=== PATIENT | male | born 1945 | race Caucasian/White ===

== ENCOUNTER → 2017-01-30 | Outpatient (REF) | payer MEDICARE, OTHER | LOC: M LAB REF 14:27 | PROVIDERS: ATTEND Internal Medicine | DX: Z01.89 Encounter for other specified special examinations (principal) ==

== ENCOUNTER → 2017-12-14 | Outpatient (REF) | payer MEDICARE, OTHER | LOC: M LAB REF 17:31 | DX: Z15.01 Genetic susceptibility to malignant neoplasm of breast (principal); Z80.41 Family history of malignant neoplasm of ovary ==

== ENCOUNTER → 2018-04-23 | Outpatient (CLI) | payer MEDICARE, OTHER ==
[~2018-04-23] MED LIST: ANOR1AER INH; BENZ200C70 PO; BISO10TA6 PO; MUCI1TAB16 PO; MUCI600T37 PO; VENTAER IN
--- NOTE | 2018-04-23 14:57 | REP ---
CT CHEST WITHOUT CONTRAST: HISTORY: Dyspnea. Rule out pleural effusion. Decreased breath sounds on the right. Chronic obstructive pulmonary disease. No comparison chest x-ray or chest CT. CT FINDINGS: Digital preliminary refractory technician radiograph demonstrates evidence of a large right pleural effusion. The left lung is essentially clear. There is fullness in the right perihilar region. Axial CT images confirm the presence of a large right pleural effusion filling of the lower half of the volume of the right hemithorax. There is compressive atelectasis in the right lower lobe and to some degree, there is atelectatic change with air bronchograms in the right middle and upper lobe. There are scattered pretracheal and right paratracheal lymph nodes which are fairly small. There is evidence of a larger subcarinal lymph node measuring up to 2.6 cm in short axis dimension x 3.8 cm craniocaudal. No definite mass is seen in the absence of intravenous contrast. Left coronary artery vascular calcification is seen. The heart appears mildly enlarged. The left lung is free of infiltrate. There is a 5 mm perivascular nodule in the left lower lobe on page 60 of 121 in series 201 of today's study. No other left-sided pulmonary nodule is appreciated. No adrenal lesion is seen. Visualized upper abdominal structures are unremarkable. There are advanced degenerative osteoarthritic changes in the shoulders. There are periarticular soft tissue ossicles about both shoulders which may be loose bodies in addition to exuberant osteophytes. No bony destructive lesion is seen. IMPRESSION: Large right pleural effusion with atelectasis in the right lung. There is subcarinal lymphadenopathy. Question bronchogenic malignancy. 5 mm perivascular nodule left lower lobe. Cardiomegaly with vascular calcification. Advanced arthropathy in the shoulders bilaterally. Electronically Signed by Angelito Mota MD 04/23/2018 06:06 P
== END ==
LOC: M RAD 11:58
PROVIDERS: ATTEND Internal Medicine Pulmonary Disease
DX: J90 Pleural effusion, not elsewhere classified (principal); J98.11 Atelectasis; J44.9 Chronic obstructive pulmonary disease, unspecified; R06.00 Dyspnea, unspecified

== ENCOUNTER → 2018-04-25 | Day surgery (SDC) | payer MEDICARE, OTHER ==
[~2018-04-25] VITALS: Ht 177.8 cm; Wt 109.8 kg
[~2018-04-25] MED LIST changes: +ALB2.5NEB NEB; +ALIG4CAP PO; +ASPI81TA85 PO; +FISH100042 PO; +FOLI1TAB11 PO; +LIDOCAINE 1% MDV 20ML VIAL XX ONE; +NORCOTAB PO; +VITMTA PO; +XARE20TA PO
[2018-04-25 13:19] LABS: BASO % 0.2 % (0.0-1.0); EOS # 0.1 10^3/uL (0.0-0.50); EOS % 1.8 % (0.0-3.0); HEMATOCRIT 45.9 % (42.0-52.0); HEMOGLOBIN 15.8 g/dl (13.5-17.5); LYMPH # 1.2 10^3/uL (1.5-4.5); LYMPH % 20.5 % (24.0-44.0); MEAN CORPUSCULAR HEMOGLOBIN 30.3 pg (27.0-33.0); MEAN CORPUSCULAR HGB CONC 34.4 g/dl (32.0-36.5); MEAN CORPUSCULAR VOLUME 87.9 fl (80.0-96.0); MONO # 0.5 10^3/uL (0.0-0.8); MONO % 8.8 % (0.0-5.0); NEUTROPHILS # 3.9 10^3/uL (1.8-7.7); NEUTROPHILS % 68.3 % (36.0-66.0); PLATELET COUNT, AUTOMATED 232 10^3/uL (150-450); RED BLOOD COUNT 5.22 10^6/uL (4.30-6.10); WHITE BLOOD COUNT 5.7 10^3/uL (4.0-10.0)
[2018-04-25 13:30] LABS: INR 1.21; PROTHROMBIN TIME 15.5 SECONDS (12.1-14.4)
[2018-04-25 13:48] LABS: ALBUMIN 3.5 GM/DL (3.2-5.2); ALT/SGPT 39 U/L (12-78); BILIRUBIN,TOTAL 0.6 MG/DL (0.2-1.0); BLOOD UREA NITROGEN 20 MG/DL (7-18); CALCIUM LEVEL 9.1 MG/DL (8.8-10.2); CARBON DIOXIDE LEVEL 29 MEQ/L (21-32); CHLORIDE LEVEL 102 MEQ/L (98-107); GLOMERULAR FILTRATION RATE > 60.0 (>42); GLUCOSE, FASTING 96 MG/DL (70-100); LDH LACTATE DEHYDROGENASE 220 U/L (87-241); SODIUM LEVEL 137 MEQ/L (136-145); TOTAL PROTEIN 7.4 GM/DL (6.4-8.2)
[2018-04-25 14:47] LABS: SOURCE, BODY FLUID pH PLEURAL
[2018-04-25 14:51] VITALS: BP 127/88
--- NOTE | 2018-04-25 14:59 | RO ---
DATE OF PROCEDURE: 04/25/2018 PREOPERATIVE DIAGNOSIS: Right pleural effusion. POSTOPERATIVE DIAGNOSIS: Right pleural effusion. FINDINGS: Very large right pleural effusion under ultrasound. PROCEDURE: Right ultrasound-guided thoracentesis. PROCEDURALIST: Kevin Dickerson DO PROGRAM ANALYST: None. ANESTHESIA: 1% lidocaine total of 10 mL. SPECIMENS OBTAINED: Pleural fluid for glucose, LDH, pH, total protein, amylase, cytology, cell count, triglycerides, cholesterol, albumin, aerobic and anaerobic culture, Gram stain, AFB smear and culture and fungal smear and culture. ESTIMATED BLOOD LOSS: There was estimated blood loss of 2 mL, none replaced. No drains. No observed complications. DESCRIPTION OF PROCEDURE: After informed consent was reviewed with the patient in the preoperative area, he was brought back to an OPP suite. He was placed in a sitting position and the right pleural effusion was identified under ultrasound. There was a large amount of pleural effusion and pleural effusion was marked. A time out was performed with two patient identifiers, confirmed right site and procedure. Chlorhexidine was used to sterilize site along with placing a barrier over the site. 1% lidocaine was introduced subcutaneously down to level of pleural with return of yellow fluid. The needle was then removed and a chastity in the skin was made. The Arrow trocar was then advanced into the pleural space with return of yellow fluid. The catheter was advanced into the pleural space and the trocar was removed. A total of 2600 mL of clear to cloudy yellow fluid was removed. The procedure was stopped due to coughing and minimal amount of chest discomfort along with reaching the limit of fluid removal for the first time. The catheter was then removed under exhalation. Bandage was placed over the site. The patient in recovery doing well. Will follow-up in my office for the results of the thoracentesis along with a chest x-ray.
[2018-04-25 15:15] LABS: SOURCE, BODY FLUID ALBUMIN PLEURAL; SOURCE, BODY FLUID TOT PROTEIN PLEURAL; TOTAL PROTEIN, BODY FLUID 4.2 G/DL (NOT ESTABLISHED)
[2018-04-25 15:16] LABS: APPEARANCE, BODY FLUID HAZY (CLEAR); PLEURAL FL COLOR YELLOW (COLORLESS); SOURCE, BODY FLUID PLEURAL
[2018-04-25 15:24] LABS: AMYLASE, BODY FLUID 83 U/L (NOT ESTABLISHED); CHOLESTEROL, BODY FLUID 61 MG/DL (NOT ESTABLISHED); LDH, BODY FLUID 1651 U/L (NOT ESTABLISHED); SOURCE, BODY FLUID AMYLASE PLEURAL; SOURCE, BODY FLUID CHOL PLEURAL; SOURCE, BODY FLUID GLUCOSE PLEURAL; SOURCE, BODY FLUID LDH PLEURAL; SOURCE, BODY FLUID TRIG PLEURAL; TRIGLYCERIDE, BODY FLUID 10 MG/DL (NOT ESTABLISHED)
== END | disposition home or self-care (01) ==
LOC: M OPP 12:28
PROVIDERS: ATTEND Internal Medicine Pulmonary Disease
DX: C78.01 Secondary malignant neoplasm of right lung (principal); J91.0 Malignant pleural effusion; R06.00 Dyspnea, unspecified; R05 Cough; I48.91 Unspecified atrial fibrillation; J44.9 Chronic obstructive pulmonary disease, unspecified

== ENCOUNTER → 2018-04-30 | Outpatient (CLI) | payer MEDICARE, OTHER ==
[~2018-04-30] MED LIST changes: -ALB2.5NEB NEB; -ALIG4CAP PO; -ASPI81TA85 PO; -FISH100042 PO; -FOLI1TAB11 PO; -LIDOCAINE 1% MDV 20ML VIAL XX ONE; -NORCOTAB PO; -VITMTA PO; -XARE20TA PO
--- NOTE | 2018-04-30 13:51 | REP ---
Chest two views HISTORY: Pleural effusion Comparison: None Parenchymal density is present in the right lower lobe consistent with atelectasis or infiltrate. A small right pleural effusion is present. The left lung is clear. The heart is normal in size. The pulmonary vasculature is normal in appearance. The bony structure is intact. IMPRESSION: 1. Right lower lobe atelectasis or infiltrate. 2. Small right pleural effusion. Electronically Signed by Felice Larson MD 04/30/2018 01:42 P
== END ==
LOC: M SMT 13:22
PROVIDERS: ATTEND Internal Medicine Pulmonary Disease
DX: R91.8 Other nonspecific abnormal finding of lung field (principal); J90 Pleural effusion, not elsewhere classified

== ENCOUNTER 2018-05-07 08:49 | Day surgery (SDC) | payer MEDICARE, OTHER ==
[~2018-05-07] VITALS: Ht 175.3 cm; Wt 109.8 kg
[~2018-05-07 08:49] MED LIST changes: -ALB2.5NEB NEB; -ALIG4CAP PO; -ASPI81TA85 PO; -FISH100042 PO; -FOLI1TAB11 PO; -VITMTA PO; -XARE20TA PO
[2018-05-07] MEDS ORDERED: LIDOCAINE 1% MDV 20ML VIAL XX ONE (09:00)
--- NOTE | 2018-05-07 10:35 | RO ---
DATE OF PROCEDURE: 05/07/2018 PREOPERATIVE DIAGNOSIS: Right pleural effusion. POSTOPERATIVE DIAGNOSIS: Right pleural effusion. FINDINGS: A large right pleural effusion under ultrasound. PROCEDURE: Right therapeutic thoracentesis. SURGEON: Dr. Dickerson MANAGER DISCOVERY: None. ANESTHESIA: 1% lidocaine. SPECIMENS OBTAINED: 2.77 liters of yellow fluid, not sent as diagnosis has already been made and the patient not having any fever. ESTIMATED BLOOD LOSS: None. DRAINS: None remaining. COMPLICATIONS: No observed complications. DESCRIPTION OF PROCEDURE: After the patient consented in the preoperative area he was brought back to OPP #3. A time-out was performed with two patient identifiers identifying correct site, correct procedure. The largest fluid collection was identified on the right and the skin was marked. Chlorhexidine was used to prep the area along with sterile barrier precaution. 1% lidocaine was then injected down to the level of pleural with return of yellow fluid. A chastity in the skin was made. The Arrow trocar was then advanced into the pleural space in the trocar was removed and the catheter was advanced. A total of 2.7 liters of yellow fluid was removed. The procedure was stopped due to decreased return of fluids. No observed complications. Postprocedure chest CT is pending.
[2018-05-07 10:45] VITALS: BP 151/97
[2018-05-08] MEDS ORDERED: ASPI81TA85 PO (14:36)
[2018-05-08] MEDS ORDERED: FISH100042 PO (14:36)
[2018-05-08] MEDS ORDERED: ALIG4CAP PO (14:36)
[2018-05-08] MEDS ORDERED: XARE20TA PO (14:36)
[2018-05-08] MEDS ORDERED: VITMTA PO (14:36)
[2018-05-09] MEDS ORDERED: FOLI1TAB11 PO (11:38)
[2018-05-16] MEDS ORDERED: PROC10TA4 PO (16:30)
[2018-05-16] MEDS ORDERED: ONDA8TAB8 PO (16:30)
[2018-05-27] MEDS ORDERED: TUSS1SUS2 PO (14:09)
== END 2018-05-07 10:50 | disposition home or self-care (01) ==
LOC: M OPP 08:49
PROVIDERS: ATTEND Internal Medicine Pulmonary Disease
DX: J44.9 Chronic obstructive pulmonary disease, unspecified (principal); J91.0 Malignant pleural effusion; R05 Cough; Z79.82 Long term (current) use of aspirin; Z79.899 Other long term (current) drug therapy; Z87.891 Personal history of nicotine dependence

== ENCOUNTER → 2018-05-07 | Outpatient (CLI) | payer MEDICARE, OTHER ==
[~2018-05-07] MED LIST changes: +ALB2.5NEB NEB; +ALIG4CAP PO; +ASPI81TA85 PO; +FISH100042 PO; +FOLI1TAB11 PO; +VITMTA PO; +XARE20TA PO
--- NOTE | 2018-05-07 11:30 | REP ---
Clinical: Follow up pleural effusion. Comparison: 04/23/2018. Technique: Axial noncontrast images from the thoracic inlet to the upper abdomen with coronal and sagittal re-formations. Findings: Small residual right hydropneumothorax is appreciated. There is an area of mass-like consolidation involving the right hilar/suprahilar region as well as a 4.5 cm defined mass in the right middle lobe. Smaller scattered nodular densities measuring up to approximately 10 mm are also identified within the aerated right lung and there is associated hilar and subcarinal adenopathy. These findings are most compatible with malignancy. 6 mm noncalcified nodules also identified inseparable from the left major fissure (image 55). Further evaluation is somewhat limited due to the lack of intravenous contrast and associated a above-mentioned right hydropneumothorax. Stable cardiomegaly and coronary artery atherosclerotic changes again noted. No pericardial effusion. Thoracic aorta appears normal. Musculoskeletal structures demonstrate degenerative changes without focal osseous abnormality. Upper abdomen demonstrates normal bilateral adrenal glands. Impression: 1. Small residual right hydropneumothorax. 2. Associated right hilar mass / consolidation, and 4.5 cm right middle lobe mass with adenopathy and small bilateral noncalcified satellite lesions up to 10 mm concerning for primary malignancy and metastatic disease. Electronically Signed by Mac Perkins MD 05/07/2018 11:22 A
== END ==
LOC: M RAD 10:54
PROVIDERS: ATTEND Internal Medicine Pulmonary Disease
DX: J94.8 Other specified pleural conditions (principal); R91.8 Other nonspecific abnormal finding of lung field; J91.0 Malignant pleural effusion

== ENCOUNTER → 2018-05-10 | Outpatient (CLI) | payer MEDICARE, OTHER ==
[~2018-05-10] MED LIST changes: +ALB2.5NEB NEB; +ALIG4CAP PO; +ASPI81TA85 PO; +FISH100042 PO; +FOLI1TAB11 PO; +GASTROGRAFIN SOLUTION 30ML (Q9963) As Ordered ONE; +NORCOTAB PO; +VITMTA PO; +XARE20TA PO
--- NOTE | 2018-05-10 13:42 | REP ---
Clinical: Metastatic adenocarcinoma of the lung. Technique: Axial noncontrast images from the lung bases to the pubic symphysis with coronal and sagittal re-formations. Comparison: 12/14/2009. Findings: Large right pleural effusion is appreciated along with right anterior pneumothorax. Right lung mass cannot be excluded. Liver, spleen, pancreas, gallbladder, bilateral adrenal glands and kidneys appear relatively normal for noncontrast evaluation. The enteric system is without obstruction or acute inflammatory process. Scattered colonic diverticula noted without acute diverticulitis. Evidence for prior partial sigmoid resection and anastomoses within the pelvis appears intact. There is broad-based eventration/hernia of the of the anterior abdominal rectus sheath containing bowel without obstruction. The pelvis is incompletely evaluated due to significant beam-hardening artifact from bilateral hip replacements. Evidence for prior bilateral inguinal hernia repair noted. No obvious ascites. No free air. No obvious adenopathy. Abdominal aorta without aneurysm. Osseous structures demonstrate degenerative changes without focal abnormality appreciated. Impression: 1. Large right pleural effusion and right pneumothorax. 2. Broad-based hernia/eventration of the anterior abdominal wall containing nonobstructed bowel. 3. Significantly limited evaluation of the pelvis including bladder and prostate gland due to beam-hardening artifact. 4. Advanced degenerative changes to the skeletal structures without obvious focal abnormality. 5. No obvious ascites, adenopathy, or focal inflammatory stranding noted. Electronically Signed by Mac Perkins MD 05/10/2018 01:33 P
== END ==
LOC: M RAD 11:21
PROVIDERS: ATTEND Nurse Practitioner Family
DX: C78.01 Secondary malignant neoplasm of right lung (principal); J90 Pleural effusion, not elsewhere classified; J93.9 Pneumothorax, unspecified

== ENCOUNTER 2018-05-13 15:08 | Inpatient (IN) | payer MEDICARE, OTHER ==
[2018-05-13] VITALS (30 sets, daily range): BP systolic 95–153; BP diastolic 55–98
[~2018-05-13 15:08] MED LIST changes: -ALB2.5NEB NEB; -NORCOTAB PO; +PANTOPRAZOLE 40MG INJ (PROTONIX) (C9113) IV SCH
[2018-05-13] MEDS ORDERED: MORPHINE 4 MG/ML 1ML VIAL/SYRINGE (J2270) IV PRN (15:15)
[2018-05-13] MEDS: IPRATROPIUM 0.5MG/ALBUTEROL 2.5MG INH SOL UD 3ML (DUONEB)(J7620) NEB SCH ×2 (16:00→19:42)
[2018-05-13] MEDS ORDERED: MIDAZOLAM INJ 2 MG/2 ML VIAL (J2250) As Ordered ONE (16:42)
[2018-05-13] MEDS ORDERED: FLUMAZENIL 0.5 MG/5 ML VIAL As Ordered ONE (16:42)
[2018-05-13] MEDS ORDERED: MIDAZOLAM INJ 2 MG/2 ML VIAL (J2250) IV ONE (16:45)
[2018-05-13] MEDS ORDERED: fentaNYL 100 MCG/2 ML INJECTION (J3010) IV ONE (16:45)
[2018-05-13] MEDS ORDERED: LIDOCAINE 1% MDV 20ML VIAL As Ordered ONE (16:50)
[2018-05-13] MEDS ORDERED: FOLI1TAB11 PO (17:12)
[2018-05-13] MEDS ORDERED: ALB2.5NEB NEB (17:12)
[2018-05-13 17:13] LABS: HEMATOCRIT 45.7 % (42.0-52.0); HEMOGLOBIN 15.6 g/dl (13.5-17.5); INR 1.35; MEAN CORPUSCULAR HEMOGLOBIN 29.8 pg (27.0-33.0); MEAN CORPUSCULAR HGB CONC 34.1 g/dl (32.0-36.5); MEAN CORPUSCULAR VOLUME 87.2 fl (80.0-96.0); PLATELET COUNT, AUTOMATED 302 10^3/uL (150-450); PROTHROMBIN TIME 16.9 SECONDS (12.1-14.4); RED BLOOD COUNT 5.24 10^6/uL (4.30-6.10); WHITE BLOOD COUNT 6.7 10^3/uL (4.0-10.0)
--- NOTE | 2018-05-13 17:23 | HPE ---
DATE OF ADMISSION: 05/13/2018 Mr. Forrest is a very pleasant 72-year-old male who had been seen by oncology. There is a plan to start chemotherapy and Keytruda. However, there is concern about fluid accumulation. We therefore called the patient to discuss arranging a PleurX catheter. Therefore, he was called and at that time he was having increased shortness of breath. He did have an abdominal CT as his PET scan was denied despite his diagnosis of primary lung malignancy. On abdominal imaging, there showed significant reaccumulation of the pleural effusion. He was therefore seen by Dr. Case in the office today and is going to be admitted for PleurX catheter placement. There was some concern about whether or not he was more hypoxic than usual. It turns out after switching his oximetry probe to a better reading finger, his oxygen saturation was 96% at rest. The patient has coughing which is usually worse with fluid reaccumulation. After his last thoracentesis, he said that is the best he has felt in a long time. He has had no difficulty swallowing. No fevers. No sinus congestion. No sore throat. He has had no dizziness or change in vision but has a progressive increase in shortness of breath. No significant weight loss. No medication changes. PAST MEDICAL HISTORY: 1. Malignant pleural effusion, adenocarcinoma thought to be lung primary with positive epidermal growth factor receptor (EGFR) and high PD-L1 expression at 70%, awaiting chemotherapy. 2. Hypertension. 3. Atrial fibrillation, atrial flutter, on chronic anticoagulation with some recent intermittent holding of the Xarelto for procedures. 3. Probable underlying chronic obstructive pulmonary disease (COPD), although spirometry has not been obtained as of yet that quantifies this. 4. History of hip and knee replacements. 5. 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 CURRENT MEDICATIONS: - albuterol nebulizer - bisoprolol - Tessalon Perles - Ventolin with spacer - Anoro - Xarelto - aspirin 81 mg - folic acid 1 mg ALLERGIES: No known drug allergies. SOCIAL HISTORY: The patient is an ex-smoker, smoked 60 years of about 8-6 cigarettes a day, approximately a 30-pack history of smoking, quit in 2001. No smokeless tobacco use. No alcohol use. No illicit drug use. He has no birds in his home and lives with his . No asbestos exposures. No hobbies involving dust or chemicals. No prior exposures. He was born in [place] but moved to the area in 1966. No recent travel. 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 FAMILY HISTORY: Mother had lung cancer, at age 53. Father has a history of an aneurysm. REVIEW OF SYSTEMS CONSTITUTIONAL: No fever, chills, night sweats, or weight loss. His appetite is still fairly good. HEENT: No impairment in vision, hearing, smell or taste. CARDIOVASCULAR: Some minimal swelling of his ankles occurring over the past year. No increase in his usual level of swelling. No calf pain. No shortness of breath. No orthopnea. PULMONARY: No history of tuberculosis exposures. No pleurisy. He does have chest pain with coughing. Otherwise as mentioned in the history of present illness (HPI). GASTROINTESTINAL (GI): No reflux, nausea, vomiting, constipation, diarrhea, hepatitis, pancreatitis or history of gallbladder disease. GENITOURINARY (): No increased frequency, urinary dysuria or increased urgency. No history of nephrolithiasis. ENDOCRINE: No history of diabetes or thyroid disease. HEMATOLOGIC: No easy bruising, easy bleeding, or requiring blood transfusion. NEUROLOGIC: No history of stroke, seizures, or significant head trauma. DERMATOLOGIC: There is no history of psoriasis or pruritic skin lesions. PSYCHIATRIC: No major depression or suicidal ideation. ALLERGY/IMMUNOLOGY: No known environmental allergies or immunodeficiency. MUSCULOSKELETAL SYSTEM: No joint pain or joint swelling. No muscle aches. No cramping. He does not require the use of a cane or walker with ambulation. SLEEP: No morning headaches, daytime fatigues, or witnessed apneas. states, however, that he does snore at times. PHYSICAL EXAMINATION: Temperature is 97.9, pulse is 83 and irregular rate and rhythm, oxygen saturations 95% on room air, blood pressure is 133/97, respiratory rate is 24. Awake, alert and oriented. Affect and mood are appropriate. Nutrition and hygiene are good. Oral and nasal mucosa pink and most without lesion. Oropharynx without erythema or exudate. Mallampati 4. Dentition in good repair. NECK: No stridor, tracheal deviation, or mass. Jugular veins not distended. Carotid upstroke is brisk without bruit but variable. Thyroid is normal in size and contour, moves normally with deglutition. LYMPHATICS: No cervical, supraclavicular or axillary adenopathy. CARDIAC: Irregularly irregular without audible murmur, rub or gallop. Point of maximal impulse (PMI) is displaced laterally to the anterior and axillary line. No discernible elevation in jugular venous pressure (JVP). PULMONARY: Breath sounds are decreased at the right base. There is dullness to percussion, one half of the right base. Expiratory phase is normal. There is increased tactile fremitus on the right. No rhonchi or wheezes. The patient does have frequent coughing throughout the examination. ABDOMEN: Soft, nontender, nondistended. Well-healed surgical incisions. Some protuberance, some rectus diastasis, normoactive bowel sounds. No discernible hepatosplenomegaly. EXTREMITIES: Minimal lower extremity edema. Radial pulses are present but irregular. SKIN: Pale, cool and dry. No rash, jaundice or bruising. MUSCULOSKELETAL: Tone is fairly normal. Gait and station are normal with no evidence of unilateral weakness. DIAGNOSTIC STUDIES: Laboratory evaluation and imaging is pending. Imaging reviewed from 03/09/[address] shows persistent air in the pleural space from my suspicion of a trapped lung. There is also now moderate reaccumulation of the pleural fluid, fairly large right middle lobe mass. There is an abdominal wall hernia without evidence of incarceration. IMPRESSION:Mr. Forrest is a 72-year-old male with increased dyspnea and recurrent pleural effusion. 1. Dyspnea, abnormal xray, recurrent pleural effusion. Initially concern for worsening hypoxia, however, this does not appear to be the case. We will admit him to the intensive care unit (ICU), place a PleurX catheter, thoracic oncology has been consulted, and sepsis is being given pre-procedure. The patient consented at bedside by thoracic surgery. At this point in time, we will hold Xarelto until after the procedure. We will restart tomorrow. 2. Probable underlying chronic obstructive pulmonary disease (COPD). Nebulizers, inhaled therapy will be continued. 3. Atrial fibrillation. We will continue bisoprolol for rate control and again return on Xarelto when surgically able. MTDD
[2018-05-13 17:36] LABS: ALBUMIN 3.3 GM/DL (3.2-5.2); ALT/SGPT 35 U/L (12-78); BILIRUBIN,TOTAL 0.7 MG/DL (0.2-1.0); BLOOD UREA NITROGEN 16 MG/DL (7-18); CALCIUM LEVEL 9.1 MG/DL (8.8-10.2); CARBON DIOXIDE LEVEL 29 MEQ/L (21-32); CHLORIDE LEVEL 102 MEQ/L (98-107); CHOLESTEROL LEVEL 177 MG/DL (< 200); CPK CREATINE PHOSPHOKINASE 119 U/L (39-308); CREATININE FOR GFR 0.91 MG/DL (0.70-1.30); GLOMERULAR FILTRATION RATE > 60.0 (>42); GLUCOSE, FASTING 90 MG/DL (70-100); LDH LACTATE DEHYDROGENASE 203 U/L (87-241); PHOSPHORUS LEVEL 3.6 MG/DL (2.5-4.9); POTASSIUM SERUM 4.7 MEQ/L (3.5-5.1); SODIUM LEVEL 138 MEQ/L (136-145); TRIGLYCERIDES LEVEL 81 MG/DL (<150)
[2018-05-13] MEDS ORDERED: NORCO, ANEXSIA 5/325MG TABLET (HYDROcodone/ACETAMINOPHEN) PO PRN (17:45)
[2018-05-13] MEDS ORDERED: RIVAROXABAN 20 MG TAB (XARELTO) PO SCH (18:00)
[2018-05-13 18:20] LABS: PH BODY FLUID 7.501 UNITS (NOT ESTABLISHED); SOURCE, BODY FLUID pH PLEURAL
[2018-05-13 18:23] LABS: APPEARANCE, BODY FLUID CLOUDY (CLEAR); PLEURAL FL COLOR ORANGE (COLORLESS); SOURCE, BODY FLUID PLEURAL
[2018-05-13 18:29] LABS: ABG BASE EXCESS 1.5 (-2.0-2.0); ABG HCO3 26.3 MEQ/L (22.0-26.0); ABG O2 SATURATION 97.3 % (95.0-99.0); ABG PARTIAL PRESSURE CO2 42.2 mmHg (35.0-45.0); ABG PARTIAL PRESSURE O2 92.9 mmHg (75.0-100.0); ABG STANDARD HCO3 25.8 MEQ/L (22.0-26.0); ABG TOTAL CO2 27.6 MEQ/L (23.0-31.0); ABG pH (ARTERIAL) 7.413 UNITS (7.350-7.450)
[2018-05-13] MEDS: TIOTROPIUM INHALER/CAPSULE (SPIRIVA) INH SCH (18:29)
[2018-05-13 18:53] LABS: AMYLASE, BODY FLUID 61 U/L (NOT ESTABLISHED); CHOLESTEROL, BODY FLUID 52 MG/DL (NOT ESTABLISHED); LDH, BODY FLUID 348 U/L (NOT ESTABLISHED); SOURCE, BODY FLUID ALBUMIN PLEURAL; SOURCE, BODY FLUID AMYLASE PLEURAL; SOURCE, BODY FLUID CHOL PLEURAL; SOURCE, BODY FLUID GLUCOSE PLEURAL; SOURCE, BODY FLUID LDH PLEURAL; SOURCE, BODY FLUID TOT PROTEIN PLEURAL; SOURCE, BODY FLUID TRIG PLEURAL; TOTAL PROTEIN, BODY FLUID 3.2 G/DL (NOT ESTABLISHED); TRIGLYCERIDE, BODY FLUID 16 MG/DL (NOT ESTABLISHED)
[2018-05-13] MEDS: FOLIC ACID 1 MG TAB PO SCH (19:35)
[2018-05-13] MEDS: SYMBICORT 160/4.5MCG INHALER 6GM INH SCH (19:47)
--- NOTE | 2018-05-13 20:29 | REP ---
PORTABLE CHEST: AP portable view of the chest is performed. Right chest tube has been placed inferiorly. There is no pneumothorax. There is significant decrease in the large right effusion. There is patchy parenchymal opacity in the right lung base. There is cardiomegaly. There are degenerative changes of the spine. Electronically Signed by Bishop Gordon MD 05/15/2018 01:26 P
[2018-05-13] MEDS ORDERED: CHLORHEXIDINE GLUCONATE 0.12 % 15ML UDC (PERIDEX ORAL RINSE) MT SCH (21:00)
[2018-05-13] MEDS ORDERED: ENOXAPARIN 40 MG/0.4 ML SYRINGE (J1650) SC SCH (21:00)
[2018-05-13] MEDS ORDERED: BENZONATATE 100 MG CAP PO SCH (22:00)
[2018-05-14] VITALS: BP 129/72
[2018-05-14 02:00] VITALS: BP 156/89
[2018-05-14 04:00] VITALS: BP 124/67
[2018-05-14] MEDS: BENZONATATE 100 MG CAP PO PRN ×2 (04:58→13:08)
[2018-05-14 05:10] LABS: HEMATOCRIT 42.2 % (42.0-52.0); HEMOGLOBIN 14.4 g/dl (13.5-17.5); MEAN CORPUSCULAR HEMOGLOBIN 30.2 pg (27.0-33.0); MEAN CORPUSCULAR HGB CONC 34.1 g/dl (32.0-36.5); MEAN CORPUSCULAR VOLUME 88.5 fl (80.0-96.0); PLATELET COUNT, AUTOMATED 254 10^3/uL (150-450); RED BLOOD COUNT 4.77 10^6/uL (4.30-6.10); WHITE BLOOD COUNT 7.3 10^3/uL (4.0-10.0)
[2018-05-14 05:36] LABS: ALBUMIN 2.5 GM/DL (3.2-5.2); BLOOD UREA NITROGEN 14 MG/DL (7-18); CALCIUM LEVEL 8.3 MG/DL (8.8-10.2); CARBON DIOXIDE LEVEL 31 MEQ/L (21-32); CHLORIDE LEVEL 102 MEQ/L (98-107); CREATININE FOR GFR 1.08 MG/DL (0.70-1.30); GLOMERULAR FILTRATION RATE > 60.0 (>42); GLUCOSE, FASTING 108 MG/DL (70-100); PHOSPHORUS LEVEL 3.4 MG/DL (2.5-4.9); POTASSIUM SERUM 4.4 MEQ/L (3.5-5.1); SODIUM LEVEL 138 MEQ/L (136-145)
[2018-05-14 05:46] LABS: ABG BASE EXCESS 3.4 (-2.0-2.0); ABG HCO3 27.3 MEQ/L (22.0-26.0); ABG O2 SATURATION 93.9 % (95.0-99.0); ABG PARTIAL PRESSURE CO2 39.2 mmHg (35.0-45.0); ABG STANDARD HCO3 27.4 MEQ/L (22.0-26.0); ABG TOTAL CO2 28.5 MEQ/L (23.0-31.0); ABG pH (ARTERIAL) 7.461 UNITS (7.350-7.450)
[2018-05-14] MEDS: TIOTROPIUM INHALER/CAPSULE (SPIRIVA) INH SCH (07:38)
[2018-05-14] MEDS: SYMBICORT 160/4.5MCG INHALER 6GM INH SCH (07:39)
[2018-05-14] MEDS: IPRATROPIUM 0.5MG/ALBUTEROL 2.5MG INH SOL UD 3ML (DUONEB)(J7620) NEB SCH ×2 (07:39→10:09)
[2018-05-14 07:55] VITALS: BP 134/76
--- NOTE | 2018-05-14 08:13 | REP ---
Chest x-ray: Two views. History: Right pleural effusion. Comparison study: May 13, 2018. Findings: There is a right-sided Pleurx catheter in place at the base as the previously noted. There is some intrafissural fluid in the right minor major fissure today. This appears more prominent than previously. There is a small pneumothorax at the apex on the right. Slight blunting of the right lateral pleural angle is seen. The left lung remains clear. Cardiomediastinal silhouette is unremarkable and unchanged. Impression: Pleurx catheter noted. Small right-sided hydropneumothorax. There is some intrafissural fluid in the major fissure today. Electronically Signed by Angelito Mota MD 05/14/2018 08:05 A
[2018-05-14] MEDS ORDERED: BISOPROLOL FUMARATE 10 MG TAB PO SCH (09:00)
[2018-05-14] MEDS ORDERED: PANTOPRAZOLE 40MG TAB (PROTONIX) PO SCH (09:00)
[2018-05-14 10:09] VITALS: BP 124/67
[2018-05-14] MEDS: FOLIC ACID 1 MG TAB PO SCH (10:10)
[2018-05-14] MEDS ORDERED: NORCOTAB PO (11:12)
[2018-05-14 12:11] VITALS: BP 136/96
--- NOTE | 2018-05-14 13:30 | DSES ---
DATE OF ADMISSION: 05/13/2018 DATE OF DISCHARGE: 05/14/2018 ATTENDING PHYSICIAN: Kevin Dickerson DO CONSULTING PHYSICIAN: Carmine Case MD PROCEDURES PERFORMED: PleurX. ADMITTING/DISCHARGE DIAGNOSES: 1. 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 2. Hypertension. 3. Atrial fibrillation, atrial flutter on chronic anticoagulation with some recent intermittent holding of Xarelto for procedures. 4. Probable underlying chronic obstructive pulmonary disease (COPD), although spirometry has not been obtained. 5. History of hip and knee replacements. 6. History of colovesicular fistula and multiple abdominal surgeries related. HISTORY OF PRESENT ILLNESS/HOSPITAL COURSE: The patient was already seen by oncology with a plan to start chemotherapy and Keytruda. However, out of concern for fluid accumulation he was referred to Dr. Case for evaluation. An abdominal CT scan showed significant reaccumulation of pleural effusion despite a recent tapping of the fluid several weeks prior. Dr. Case had the patient admitted for a PleurX catheter placement. At that time, the patient also had noted coughing which tended to usually be worse with fluid reaccumulation but was not as bad as when he initially had the tap done. On the evening of 05/13/2018, Dr. Case along with Dr. Dickerson were at bedside, Dr. Case placed the PleurX catheter. The patient tolerated the procedure well, and did not have any complications from it. He was monitored overnight. This morning, he reported he was doing well and was breathing much easier. He continues to have a cough, which is likely from his primary lung malignancy. A discussion was had with his family and he at bedside but that would likely improve with reduction of the tumor in that it could traveling possible fluid in his lungs. He is scheduled to have the PleurX drained every other day as needed for shortness of breath, and he will followup with Dr. Case's office within a week. PHYSICAL EXAMINATION: VITAL SIGNS: 98.9 degrees Fahrenheit. Heart rate of 97. Blood pressure 124/67. Saturating at 96% on room air. GENERAL: Alert and oriented times three, pleasant, in no acute distress. HEENT: Head is normocephalic, atraumatic. Extraocular motions intact. Sclerae white and nonicteric. Oral mucous membranes are moist. Trachea is midline. NECK: Soft, supple, nontender. CARDIOVASCULAR: Regular rate and rhythm. Normal S1 and S2. No murmurs, gallops, rubs. RESPIRATORY: Clear to auscultation bilaterally with minimally decreased breath sounds in the right lung base. No wheezed, crackles, rhonchi on auscultation. ABDOMEN: Abdomen is moderately protuberant but is soft, nontender, nondistended with wound covering present. Abdominal protuberance made worse with coughing. EXTREMITIES: No clubbing, cyanosis or edema. DISCHARGE MEDICATIONS: - Patient to continue Xarelto 20 mg daily - bisoprolol 10 mg daily - Continue home Anoro. - Continue Tessalon Perles 200 mg every 8 hours as needed for cough. - Continue folate 1 tablet every day. - Continue albuterol treatments as needed. - Continue aspirin. - Continue Ventolin inhaler as needed. - Continue [place] every 4 hours as needed (patient was given 15 pills). LABORATORY DATA: White blood cell count of 7.3, hemoglobin of 14.4, hematocrit of 42.2, platelet count of 254. ABG this morning pH of 7.461, pCO2 of 39.2, pO2 of 67, HCO3 27.3. Chem panel: Sodium of 138, potassium 4.4, chloride of 102, carbon dioxide 31, BUN of 14, creatinine of 1.08, glucose 108. Pleural fluid drawn on 05/13/2018 shows white blood cell count of 1780, red blood cells of 15, fluid pH of 7.5, mononuclear cells 61.4, fluid polymorphonuclear cells 38.6, fluid glucose is 93, fluid total protein is 3.2, fluid albumin of 1.8, fluid LDH of 348, fluid amylase of 61, fluid cholesterol of 52, fluid triglycerides of 16. Color in appearance was orange and cloudy. Gram-stain from pleural fluid shows many red blood cells, many white blood cells, no organisms seen. Sputum shows a few epithelial cells, a few white blood cells, a few gram- positive rods, a few gram-positive cocci in pairs, chains and clusters. Final lab results due in 2-7 days. Cytology is pending. Pathology is pending. IMAGING: Chest x-ray on 05/13/2018, AP portable view of the chest performed. Right chest tube is in place inferiorly. There is no pneumothorax. There is significant decrease in the large right effusion. There is patchy parenchymal opacity in the right lung base. There is cardiomegaly. There are degenerative changes of the spine. Chest x-ray for 05/14/2018 PleurX catheter noted. Small right-sided hydropneumothorax. There is some intrafissural fluid in the major fissure today. ACTIVITY: As tolerated prior. DIET: Regular. DISCHARGE INSTRUCTIONS: Please followup with Dr. Case's office outpatient in 1 week. Please keep oncology appointment this . Please follow wound care instructions as per the video and have the PleurX drained every other day as needed for shortness of breath. Please followup with Dr. Dickerson outpatient in the next 4 weeks. PET scan approval is still pending. DISCHARGE CONDITION: The patient is stable. TIME SPENT ON DISCHARGE: Greater than 30 minutes. My faculty preceptor for this patient encounter was physically present during the encounter and was fully available. All aspects of the patient interview, examination, medical decision making process, and medical care plan development were reviewed and approved by the faculty preceptor. The faculty preceptor is aware and concurs with the plan as stated in the body of this note and will attest to such by his/her co-signature. ADDENDUM: DATE: 05/13/2018 I, Kevin Dickerson, conducted bedside rounds on Mr. Forrest this morning in conjunction with my resident, Dr. Luis Fernando Enamorado. I agree with the assessment and plan to discharge him home after he has had extensive education on the PleurX catheter. He will drain every other day. I have written a prescription from the office for a limited amount of narcotics in the form of [place] 5/325, a total of fifteen pills, to be taken up to four times a day. He was advised to call the office with any questions or concerns. Otherwise, I agree with what is outlined above. Addendum 05/14/2018 aml edited: 05/15/2018 0722 dre GAONA
--- NOTE | 2018-05-14 16:47 | RO ---
DATE OF PROCEDURE: 05/13/2018 PREPROCEDURE DIAGNOSIS: Recurrent malignant pleural effusion. POSTPROCEDURE DIAGNOSIS: Recurrent malignant pleural effusion. PROCEDURE: Insertion of right PleurX catheter. SURGEON: Dr. Carmine Case FLATLOCK SEWING MACHINE OPERATOR: ANESTHESIA: DESCRIPTION OF PROCEDURE: Under satisfactory moderate sedation achieved with 4 mg of Versed and 50 mg of Fentanyl, the patient was prepped and draped in the usual sterile fashion. The entrance and exit sites were infiltrated with 1% lidocaine and an exploring needle was placed into pleura. A wire was then placed. Two incisions were made at the entrance and exit sites, and a tunnel was created from the exit to the entrance site. PleurX catheter was pulled through the tunnel. The tract was then dilated with a peel-away introducer and the PleurX catheter placed without difficulty. Catheter was positioned appropriately and then secured to the chest wall with one #3-0 silk suture. The entrance incision was then closed with a running #4-0 Monocryl subcuticular suture and covered with Dermabond. Two liters of serous fluid was then drained from the patient. The patient tolerated the procedure well and a chest x-ray is pending.
[2018-05-14] MEDS ORDERED: RIVAROXABAN 20 MG TAB (XARELTO) PO SCH (18:00)
[2018-05-16] MEDS ORDERED: PROC10TA4 PO (16:30)
[2018-05-16] MEDS ORDERED: ONDA8TAB8 PO (16:30)
== END 2018-05-14 13:20 | disposition home or self-care (01) | DRG 181 ==
LOC: M ICU 15:53
PROVIDERS: ADMIT Internal Medicine Pulmonary Disease; ATTEND Internal Medicine Pulmonary Disease
PROC: 0W9900Z Drainage of Right Pleural Cavity with Drainage Device, Open Approach (ICD-10-PCS; principal; 2018-05-13)
DX: C34.90 Malignant neoplasm of unspecified part of unspecified bronchus or lung (principal); J91.0 Malignant pleural effusion; I48.92 Unspecified atrial flutter; I10 Essential (primary) hypertension; I48.91 Unspecified atrial fibrillation; J44.9 Chronic obstructive pulmonary disease, unspecified; Z79.01 Long term (current) use of anticoagulants; Z79.82 Long term (current) use of aspirin; Z79.899 Other long term (current) drug therapy; Z87.891 Personal history of nicotine dependence

== ENCOUNTER → 2018-05-13 | Outpatient (CLI) | payer MEDICARE, OTHER ==
[~2018-05-13] MED LIST changes: -GASTROGRAFIN SOLUTION 30ML (Q9963) As Ordered ONE
--- NOTE | 2018-05-13 14:59 | REP ---
CT chest without contrast: History: Neoplasm of uncertain behavior. Comparison chest CT study May 07, 2018. CT findings: Preliminary digital vp product marketing radiograph demonstrates a [id number] right pleural effusion. This is confirmed on axial CT images. This represents a change from the comparison study of May 07, 2018. That was a post thoracentesis acquisition. The fluid has reaccumulated and in fact is increased when compared with the prior study of April 23, 2018. There is a small quantity of residual post thoracentesis pneumothorax anteriorly and medially in the retrosternal region and at the apex. There is consolidation and collapse in the right middle lobe distribution. There are some upper lobe atelectatic changes as well on the right. Left lung is essentially clear. No left pleural effusion is seen. No pericardial effusion is noted. Moderate cardiac enlargement is seen. Some vascular calcifications noted. No definite mediastinal or hilar adenopathy. No adrenal mass lesion is seen on either side. No bony destructive lesion. There are advanced osteoarthritic changes in the shoulders. Impression: Reaccumulated large right pleural effusion. Right hilar fullness with postobstructive change right upper and middle lobe again noted. Tiny residual right-sided pneumothorax. Electronically Signed by Angelito Mota MD 05/13/2018 05:50 P
== END ==
LOC: M RAD 13:50
PROVIDERS: ATTEND Thoracic Surgery (Cardiothoracic Vascular Surgery)
DX: J93.9 Pneumothorax, unspecified (principal); D38.1 Neoplasm of uncertain behavior of trachea, bronchus and lung; J90 Pleural effusion, not elsewhere classified

== ENCOUNTER → 2018-05-15 | Outpatient (CLI) | payer MEDICARE, OTHER ==
[~2018-05-15] MED LIST changes: +ALB2.5NEB NEB; +NORCOTAB PO; +ONDA8TAB8 PO; -PANTOPRAZOLE 40MG INJ (PROTONIX) (C9113) IV SCH; +PROC10TA4 PO; +PROHANCE 279.3MG/ML 15ML VIAL (A9576) As Ordered ONE; +PROHANCE 279.3MG/ML 5ML VIAL (A9576) As Ordered ONE
--- NOTE | 2018-05-15 15:14 | REP ---
MR BRAIN WITHOUT AND WITH CONTRAST: HISTORY: Malignant pleural effusion. CONTRAST: ProHance 20 mL. Several punctate areas of increased signal intensity on T2-weighted images are present in the periventricular and subcortical white matter. This represents small vessel ischemic disease. There is no intraparenchymal hemorrhage, infarct, mass, or midline shift. There is no abnormal enhancement. The ventricular system and cortical sulci are dilated consistent with minimal volume loss. There is no extracerebral collection. Mucosal thickening is present in the maxillary sinuses. IMPRESSION: 1. Minimal small vessel ischemic disease. 2. Minimal volume loss. Electronically Signed by Felice Larson MD 05/15/2018 03:26 P
== END ==
LOC: M RAD 12:20
PROVIDERS: ATTEND Internal Medicine Pulmonary Disease
DX: R51 Headache (principal); J91.0 Malignant pleural effusion
CPT/HCPCS: 70553; A9576

== ENCOUNTER → 2018-05-21 | Outpatient (CLI) | payer MEDICARE, OTHER ==
[~2018-05-21] MED LIST changes: -PROHANCE 279.3MG/ML 15ML VIAL (A9576) As Ordered ONE; -PROHANCE 279.3MG/ML 5ML VIAL (A9576) As Ordered ONE; +TUSS1SUS2 PO
--- NOTE | 2018-05-21 20:37 | REP ---
Whole body PET CT scan: The the patient recently had a large right pleural effusion that was evacuated. The pathology report of the effusion fluid indicates metastatic adenocarcinoma. Whole-body PET CT scanning is performed from skull base to the upper thighs. Neck and supraclavicular areas: There are no hypermetabolic foci. Chest: There is a hypermetabolic subcarinal node on the right extending in to the right infrahilar zone with a maximum standard uptake value of 10.6. There is a hypermetabolic right hilar node with a standard uptake value of 7.4. There is an infiltrate like density versus mass extending from the right hilus into the right middle lobe with a standard uptake value of 2.4. On the comparison CT dated 04/23/2018 there is a 5 mm left lower lobe lung nodule. This lung nodule is no longer identified on the study today. There is hypermetabolic uptake in the anterior end of the left sixth rib with a maximal standard uptake value of 4.2. There is a hypermetabolic focus in the intercostal soft tissue space of the right fifth and sixth ribs posterolaterally with a maximal standard uptake value of 4.8. Abdomen, pelvis and upper thighs: No hypermetabolic foci are identified. Specifically no hepatic or adrenal foci are identified. There is uptake in the right upper extremity, likely within right upper extremity veins, the injection site being the right hand. Impression: There are hypermetabolic foci in the subcarinal mediastinal nodes on the right, right hilus, left sixth rib anteriorly and intercostal space of the right fifth and sixth ribs posterolaterally. There is non hypermetabolic uptake in a mass like density versus infiltrate extending from the right hilus into the right middle lobe. The study is performed with 0.56 mCi of F 18 FDG. Electronically Signed by Bishop Biggs MD 05/21/2018 08:28 P
== END ==
LOC: M PLARAD 07:23
PROVIDERS: ATTEND Internal Medicine Pulmonary Disease
DX: C34.11 Malignant neoplasm of upper lobe, right bronchus or lung (principal); R59.0 Localized enlarged lymph nodes; R93.7 Abnormal findings on diagnostic imaging of other parts of musculoskeletal system
CPT/HCPCS: 78815; A9552

== ENCOUNTER 2018-05-26 15:12 | Emergency (ER) | payer MEDICARE, OTHER ==
[~2018-05-26] VITALS: Ht 175.3 cm; Wt 109.1 kg
[~2018-05-26 15:12] MED LIST changes: -TUSS1SUS2 PO
[2018-05-26 15:46] LABS: HEMATOCRIT 42.9 % (42.0-52.0); HEMOGLOBIN 14.3 g/dl (13.5-17.5); MEAN CORPUSCULAR HEMOGLOBIN 29.4 pg (27.0-33.0); MEAN CORPUSCULAR HGB CONC 33.3 g/dl (32.0-36.5); MEAN CORPUSCULAR VOLUME 88.3 fl (80.0-96.0); PLATELET COUNT, AUTOMATED 235 10^3/uL (150-450); RED BLOOD COUNT 4.86 10^6/uL (4.30-6.10); WHITE BLOOD COUNT 9.3 10^3/uL (4.0-10.0)
[2018-05-26 16:23] LABS: BASOPHILS 1 % (0-4); EOSINOPHILS 1 % (0-5); LYMPHOCYTES 10 % (16-52); MONOCYTES 2 % (0-8); NEUTROPHILS 85 % (35-75)
[2018-05-26 16:24] LABS: PLATELET ESTIMATE NORMAL (NORMAL)
--- NOTE | 2018-05-26 16:45 | ECGEPIP ---
Stationary ECG Study [facility] - ED Test Date: 2018-05-26 Pat Name: DELL DAMON Department: Room: - Gender: M Office Professionals: JOSE MARTIN : 1945 Requested By: RAJIV Graves Order Number: [id number] Reading MD: Yeny Wilkinson Measurements Intervals Barney Rate: 94 P: NM: 0 QRS: 20 QRSD: 106 T: 3 QT: 343 QTc: 431 Interpretive Statements ATRIAL FIBRILLATION ABNORMAL RHYTHM ECG LOW VOLTAGE LIMB BASELINE ARTIFACT LIMITS INTERPRETATION NO PRIOR FOR COMPARISON Electronically Signed On 05-26-2018 16:44:39 EST by Yeny Wilkinson
[2018-05-26 16:59] LABS: ALBUMIN 2.8 GM/DL (3.2-5.2); ALT/SGPT 59 U/L (12-78); BILIRUBIN,DIRECT 0.3 MG/DL (0.0-0.2); BILIRUBIN,TOTAL 0.8 MG/DL (0.2-1.0); BLOOD UREA NITROGEN 18 MG/DL (7-18); CALCIUM LEVEL 8.8 MG/DL (8.8-10.2); CARBON DIOXIDE LEVEL 32 MEQ/L (21-32); CHLORIDE LEVEL 99 MEQ/L (98-107); CPK CREATINE PHOSPHOKINASE 57 U/L (39-308); CREATININE FOR GFR 0.96 MG/DL (0.70-1.30); GLOMERULAR FILTRATION RATE > 60.0 (>42); GLUCOSE, FASTING 105 MG/DL (70-100); MB/CK RELATIVE INDEX 2.81 (< OR =4); POTASSIUM SERUM 4.9 MEQ/L (3.5-5.1); SODIUM LEVEL 136 MEQ/L (136-145); TOTAL PROTEIN 6.9 GM/DL (6.4-8.2); TROPONIN I < 0.02 NG/ML (< 0.10)
[2018-05-26] MEDS: ACETAMINOPHEN TAB 650MG DOSE (2X325MG) PO ONE (17:00)
[2018-05-26] MEDS ORDERED: NS 500 ML IV ONE (17:45)
[2018-05-26 18:01] VITALS: BP 113/59
[2018-05-26 18:16] VITALS: O2SAT 96
--- NOTE | 2018-05-27 07:19 | REP ---
CHEST, PA AND LATERAL: 05/26/2018. Comparison: Chest 05/14/2018, portable chest 05/13/2018. Clinical history: Pleur-X catheter not draining. Right base Pleur-X catheter is again seen, appears to be positioned in the same region. The pseudotumor in the major fissure on the previous study is much reduced. There may be slightly more posterior effusion on the current study compared to the previous. Left lung was without definite effusion. There is hazy atelectatic change in the infrahilar right lower lobe. Degenerative changes in the shoulders and spine are unchanged. Impression: 1. Pleur-X catheter at the right lung base with interval decrease in size of the pseudotumor in the major fissure with some increase in the posterior pleural fluid in the deep sulcus of the right lower lobe. Some compressive or consolidative atelectatic changes are again noted infrahilar region. Electronically Signed by Gage Ellis MD 05/27/2018 09:22 A
[2018-05-27] MEDS ORDERED: TUSS1SUS2 PO (14:09)
--- NOTE | 2018-06-03 20:02 | ED PDOC ---
Post-Departure Follow-Up soila wilhelm, brianda faxed formal report of cxr for fu Asad Truong MD Jun 03, 2018 20:02
[2018-06-04] MEDS ORDERED: TUSS1SUS2 PO (11:11)
[2018-06-11] MEDS ORDERED: FOLI1TAB11 PO (09:18)
== END 2018-05-26 18:30 | disposition home or self-care (01) ==
LOC: M ED 15:12
DX: R06.02 Shortness of breath (principal); R94.31 Abnormal electrocardiogram [ECG] [EKG]; I48.91 Unspecified atrial fibrillation; Z85.118 Personal history of other malignant neoplasm of bronchus and lung; I10 Essential (primary) hypertension; J44.9 Chronic obstructive pulmonary disease, unspecified; K63.2 Fistula of intestine; Z79.01 Long term (current) use of anticoagulants; Z79.899 Other long term (current) drug therapy

== ENCOUNTER → 2018-07-17 | Outpatient (CLI) | payer MEDICARE, OTHER ==
[~2018-07-17] MED LIST changes: +GASTROGRAFIN SOLUTION 30ML (Q9963) As Ordered ONE; +HYDR-3715 PO; +ISOVUE-370 76% 100ML VIAL (Q9967) As Ordered ONE; -NORCOTAB PO; +TUSS1SUS2 PO
--- NOTE | 2018-07-17 13:19 | REP ---
CT of the chest with IV contrast: The clinical history states stage IV non-small cell lung carcinoma, restaging after three cycles of chemotherapy. Comparison is 05/13/2018. The previous large right pleural effusion has significantly decreased with only a tiny persisting pleural effusion today. A pleural drainage catheter is identified as an interval change. The right hilar fullness identified previously is no longer present. The right upper lobe atelectasis extending from the right hilus identified previously is no longer identified. There is a 10 mm lung nodule just above the right minor fissure on image 49, obscured on the comparison study. This nodule is just a a small bulla. There is atelectasis medially in the medial segment of the right middle lobe. This has decreased. The left lung is clear. There is no mediastinal lymph node enlargement. There is borderline right hilar lymph node enlargement. There is no left hilar lymph node enlargement. There is no axillary lymph node enlargement. The thoracic aorta is unremarkable. Cardiac size is upper normal. There is no pericardial effusion. The visualized upper abdominal contents are unremarkable. There is no adrenal mass. Impression: The right pleural effusion has significantly decreased in size. There is a right pleural drainage catheter as an interval change. The right hilar fullness has significantly decreased. The right upper lobe atelectasis has resolved. A 10 mm right lung nodule is identified just above the minor fissure and just above a small bulla. Electronically Signed by Bishop Biggs MD 07/17/2018 01:11 P
--- NOTE | 2018-07-17 13:48 | REP ---
CT of the abdomen and pelvis with IV and oral contrast: The patient has stage IV non-small cell lung carcinoma. Comparison is 05/10/2018. The previous large right pleural effusion has significantly decreased in size. The hepatic parenchyma is homogeneous. The gallbladder, pancreas and spleen are normal size and unremarkable. There is no adrenal mass. The kidneys are unremarkable. The abdominal aorta is unremarkable. There is no periaortic adenopathy. Mesentery and bowel are unremarkable except for a circumferential anastomotic suture line in the sigmoid colon. This is unchanged. The patient has history of colon fistula. There is diastases of the rectus abdominus. Pelvis: There are bilateral hip arthroplasties, unchanged. These result in significant beam-hardening artifact and reduction in image quality. The visualized portions of the bladder and pelvic bowel loops are unremarkable. No definite ascites or adenopathy. There are no lytic, blastic or destructive skeletal changes. Impression: No adenopathy, ascites or metastatic disease. Electronically Signed by Bishop Biggs MD 07/17/2018 01:39 P
== END ==
LOC: M RAD 09:20
PROVIDERS: ATTEND Internal Medicine Medical Oncology
DX: C34.90 Malignant neoplasm of unspecified part of unspecified bronchus or lung (principal); J90 Pleural effusion, not elsewhere classified
CPT/HCPCS: 71260; 74177; Q9963; Q9967

== ENCOUNTER → 2018-08-01 | Outpatient (CLI) | payer MEDICARE, OTHER ==
[~2018-08-01] MED LIST changes: -GASTROGRAFIN SOLUTION 30ML (Q9963) As Ordered ONE; -ISOVUE-370 76% 100ML VIAL (Q9967) As Ordered ONE
--- NOTE | 2018-08-01 11:27 | REP ---
Chest x-ray: Three views. History: Followup chest x-ray. Comparison study May 26, 2018. Right pleural effusion. Findings: Blunting of the right lateral pleural angle is again noted. PleurX catheter is visible in the right base coursing posteriorly into the posterolateral pleural angle. A there is mild pleural thickening along the lateral chest wall unchanged. Borderline heart size is seen. No left pleural effusion is seen. No new infiltrate is noted. There are degenerative changes in the thoracic spine. There is fairly advanced osteoarthritis of the glenohumeral articulations bilaterally as well. Impression: Small right pleural effusion with PleurX catheter in place. Otherwise no acute changes. Electronically Signed by Angelito Mota MD 08/01/2018 12:32 P
== END ==
LOC: M SMT 10:51
PROVIDERS: ATTEND Thoracic Surgery (Cardiothoracic Vascular Surgery)
DX: C34.2 Malignant neoplasm of middle lobe, bronchus or lung (principal); J90 Pleural effusion, not elsewhere classified

== ENCOUNTER → 2018-08-28 | Outpatient (CLI) | payer MEDICARE, OTHER ==
[~2018-08-28] MED LIST changes: +COLC1TAB13 PO; +COLCHICINE PO; +HYDR12.55 PO; +KEFL250C11 PO
--- NOTE | 2018-08-28 18:07 | REP ---
Clinical: Pain and swelling. Technique: AP, lateral, bilateral oblique views of the right foot. Findings: Moderate diffuse swelling. Mild hallux valgus deformity is appreciated along with early advanced degenerative changes at the first metatarsophalangeal joint including subchondral sclerosis with cystic changes, joint space narrowing, and marginal osteophytes. Lateral view demonstrates moderate calcaneal heal spur. Very subtle plantar calcifications on lateral radiograph are suspected. Remainder examination is relatively normal for age. Impression: Diffuse swelling and focal early advanced degenerative changes at the first MTP joint. Electronically Signed by Mac Perkins MD 08/28/2018 05:59 P
== END ==
LOC: M RAD 15:46
PROVIDERS: ATTEND Internal Medicine Medical Oncology
DX: M79.671 Pain in right foot (principal)

== ENCOUNTER → 2018-10-02 | Outpatient (CLI) | payer MEDICARE, OTHER ==
[~2018-10-02] MED LIST changes: +FLON1SPR; +GASTROGRAFIN SOLUTION 30ML (Q9963) As Ordered ONE; +ISOVUE-370 76% 100ML VIAL (Q9967) As Ordered ONE
--- NOTE | 2018-10-02 17:28 | REP ---
CT chest with IV contrast: History: Stage IV non-small cell lung carcinoma. Restaging. Comparison CT study July 17, 2018. CT contrast dose: 100 ml of intravenous Isovue 370. CT findings: A right-sided Pleurx catheter remains in place. There is a small quantity of pleural fluid at the right base. This is essentially unchanged from July 17, 2018. There is mild visceral and parietal pleural thickening and enhancement at the right base. No left pleural effusion is seen. Nodular opacity identified in the right upper lobe on the July 17, 2018 study is not apparent today. There is some fissural thickening in the major fissure on the right, which may be some fissural fluid. There are two small sub-centimeter soft tissue nodules in the right lower lobe in a peribronchovascular distribution. There is somewhat nodular parenchymal opacification adjacent to the right pleural effusion in the right middle lobe and right base with interstitial lung disease adjacent to this. These findings are more prominent than on the prior study. I cannot exclude lymphangitic spread in the right lower lobe. No new mediastinal adenopathy is seen. No hilar adenopathy is observed. No adrenal lesion is seen. Bone window settings demonstrate degenerative disc disease in the thoracic spine. There is severe glenohumeral osteoarthritis bilaterally. No bony destructive lesion is appreciated. Impression: Small right pleural effusion, unchanged with Pleurx catheter in place in the right pleural space. There is some visceral and parietal pleural thickening. Interstitial markings are increased in the right base compared to the prior study and there are small peribronchovascular nodules in the right lower lobe posteriorly. Question lymphangitic spread versus inflammatory change in the right base. Electronically Signed by Angelito Mota MD 10/03/2018 11:09 A
--- NOTE | 2018-10-02 17:30 | REP ---
CT abdomen and pelvis with IV and oral contrast: History: Stage IV non-small cell carcinoma of the lung. Staging. Comparison study: May 10, 2018. CT contrast dose: 100 ml of intravenous Isovue [address] findings: Pleuroparenchymal changes are seen at the right base along with a Pleurx catheter. These were described in detail on the chest CT report from today. No adrenal lesion is seen. No focal hepatic or splenic lesion is observed. There is a small hepatic cyst noted in the inferior aspect of the right lobe. No adrenal lesion is seen. The kidneys enhance symmetrically. The gallbladder and the pancreas are unremarkable. No retroperitoneal mass or adenopathy is seen. The rectus muscles are quite diastatic. The patient appears to be status post ventral hernia repair. There is no evidence of ascites. Urinary bladder is unremarkable. Small and large intestinal bowel loops are normal in appearance. Impression: No evidence of intra-abdominal metastasis. Electronically Signed by Angelito Mota MD 10/03/2018 11:09 A
== END ==
LOC: M RAD 14:25
PROVIDERS: ATTEND Internal Medicine Medical Oncology
DX: C34.90 Malignant neoplasm of unspecified part of unspecified bronchus or lung (principal); J90 Pleural effusion, not elsewhere classified
CPT/HCPCS: 71260; 74177; Q9963; Q9967

== ENCOUNTER → 2018-10-07 | Outpatient (CLI) | payer MEDICARE, OTHER ==
[~2018-10-07] MED LIST changes: +BISO10TA14 PO; -BISO10TA6 PO; +CEPH500C PO; +DIGO0.123 PO; +FURO20TA2 PO; +FURO40TA2 PO; -GASTROGRAFIN SOLUTION 30ML (Q9963) As Ordered ONE; -ISOVUE-370 76% 100ML VIAL (Q9967) As Ordered ONE; +LEVO750T13 PO; +LINE1TAB6 PO; +OMEP10CASR PO; +PRED20TA PO; +PRED50TA PO; +TREL1AER IN; +TREL1AER PO
--- NOTE | 2018-10-07 09:13 | REP ---
Clinical: Malignant neoplasm. Technique: PA and lateral. Comparison: 08/01/2018. Findings: Increasing right lower lobe ill-defined infiltrates and small to moderate pleural effusion noted. Left hemithorax appears clear. Cardiac silhouette is stable. Impression: Increasing right lower lobe infiltrate and pleural effusion. Electronically Signed by Mac Perkins MD 10/07/2018 09:05 A
== END ==
LOC: M SMT 08:55
PROVIDERS: ATTEND Thoracic Surgery (Cardiothoracic Vascular Surgery)
DX: C34.11 Malignant neoplasm of upper lobe, right bronchus or lung (principal); J91.8 Pleural effusion in other conditions classified elsewhere; J90 Pleural effusion, not elsewhere classified

== ENCOUNTER 2018-10-14 12:21 | Day surgery (SDC) | payer MEDICARE, OTHER ==
[~2018-10-14] VITALS: Ht 175.3 cm; Wt 103.0 kg
[~2018-10-14 12:21] MED LIST changes: +MUPIROCIN 2% OINT 22 GM TUBE TOP ONE
[2018-10-14] MEDS ORDERED: MIDAZOLAM INJ 2 MG/2 ML VIAL (J2250) As Ordered ONE ×2 (13:17→13:41)
[2018-10-14] MEDS ORDERED: LIDOCAINE 1% MDV 20ML VIAL As Ordered ONE (13:18)
--- NOTE | 2018-10-14 14:19 | RO ---
DATE OF PROCEDURE: 10/14/2018 PREPROCEDURE DIAGNOSIS: Retained PleurX catheter and nonfunctional. POSTPROCEDURE DIAGNOSIS: Retained PleurX catheter and nonfunctional. PROCEDURE: Removal of PleurX catheter. SURGEON: Carmine Case MD ENGINEERING AID: ANESTHESIA: FINDINGS: The catheter was first tested by flushing it and there was no return. DESCRIPTION OF PROCEDURE: Under satisfactory moderate sedation eventually achieved with 3 mg of Versed, the patient was prepped and draped in the usual sterile fashion. A longitudinal incision was made along the course of the catheter. The collar was then found and tediously scraped away from the surrounding subcutaneous tissue. He had very dense scar. Nonetheless, the collar was removed and the catheter was removed in toto from the chest. The distal end of the catheter was removed by the skin. The subcutaneous tissue was closed with running #3-0 Vicryl suture and the skin was closed with running #4-0 Monocryl subcuticular suture. The patient tolerated the procedure well, and a chest x-ray is pending.
[2018-10-14 14:42] VITALS: BP 115/69
--- NOTE | 2018-10-14 16:01 | REP ---
Portable chest x-ray: Two views. History: Post chest tube removal. Findings: Portable AP views of the chest demonstrate blunting of the right lateral pleural angle increased in extent since the October 07, 2018 prior study. The PleurX catheter is no longer visible at the right base. The left lung remains clear. Cardiomegaly is observed. There is advanced bilateral shoulder osteoarthritis. Impression: Cardiomegaly. Increased right effusion. Electronically Signed by Angelito Mota MD 10/14/2018 05:21 P
[2018-10-17] MEDS ORDERED: LEVO750T13 PO (10:12)
== END 2018-10-14 15:03 | disposition home or self-care (01) ==
LOC: M OPP 12:21
PROVIDERS: ATTEND Thoracic Surgery (Cardiothoracic Vascular Surgery)
DX: Z46.82 Encounter for fitting and adjustment of non-vascular catheter (principal); Z01.812 Encounter for preprocedural laboratory examination; J91.0 Malignant pleural effusion
CPT/HCPCS: 32552; 36415; 71045; 85610; 85730; J2250

== ENCOUNTER → 2018-10-14 | Outpatient (CLI) | payer MEDICARE, OTHER ==
[~2018-10-14] MED LIST changes: -BISO10TA14 PO; +BISO10TA6 PO; -CEPH500C PO; -DIGO0.123 PO; -FURO20TA2 PO; -FURO40TA2 PO; -LEVO750T13 PO; -LINE1TAB6 PO; -OMEP10CASR PO; -PRED20TA PO; -PRED50TA PO; -TREL1AER IN; -TREL1AER PO
[2018-10-14 08:43] LABS: INR 1.27; PROTHROMBIN TIME 15.6 SECONDS (11.8-14.0)
[2018-10-14 08:44] LABS: PARTIAL THROMBOPLASTIN TIME 30.6 SECONDS (25.0-38.4)
== END ==
LOC: M LAB 07:50
PROVIDERS: ATTEND Thoracic Surgery (Cardiothoracic Vascular Surgery)
DX: Z01.812 Encounter for preprocedural laboratory examination (principal); J91.0 Malignant pleural effusion

== ENCOUNTER → 2018-10-17 | Outpatient (CLI) | payer MEDICARE, OTHER ==
[~2018-10-17] MED LIST changes: -BISO10TA6 PO; +BISO10TA7 PO; +ISOVUE-370 76% 100ML VIAL (Q9967) As Ordered ONE; +LEVO750T13 PO; -MUPIROCIN 2% OINT 22 GM TUBE TOP ONE
--- NOTE | 2018-10-17 11:47 | REP ---
CT brain without and with IV contrast: History: Stage IV non-small cell lung carcinoma with new onset dizziness and poor balance. Rule out intracranial metastasis. Comparison brain MRI study May 15, 2018. CT contrast dose: 75 mL of intravenous Isovue 370. CT findings: Preliminary digital resistor tester radiograph is unremarkable. There is minimal motion artifact. The bony calvarium is intact. No bony destructive lesion is appreciated. Visualized paranasal sinuses are clear. No intraorbital abnormality is appreciated. On soft tissue window settings, there is mild generalized atrophy. There is no evidence of intracranial hemorrhage, mass, extra-axial fluid collection, or midline shift. No acute infarction is seen. Postcontrast images demonstrate enhancement in normal intracranial vasculature as expected. No abnormal intracranial contrast enhancement is appreciated. Impression: There is no evidence of intracranial metastatic disease. Electronically Signed by Angelito Mota MD 10/17/2018 05:04 P
== END ==
LOC: M RAD 10:50
PROVIDERS: ATTEND Internal Medicine Medical Oncology
DX: C34.91 Malignant neoplasm of unspecified part of right bronchus or lung (principal)
CPT/HCPCS: 36415; 70470; 80053; 82378; 85027; G0463; Q9967

== ENCOUNTER → 2018-10-21 | Outpatient (CLI) | payer MEDICARE, OTHER ==
[~2018-10-21] MED LIST changes: +BISO10TA14 PO; -BISO10TA7 PO; +CEPH500C PO; +DIGO0.123 PO; +FURO20TA2 PO; +FURO40TA2 PO; -ISOVUE-370 76% 100ML VIAL (Q9967) As Ordered ONE; +LINE1TAB6 PO; +OMEP10CASR PO; +PRED20TA PO; +PRED50TA PO; +TREL1AER IN; +TREL1AER PO
--- NOTE | 2018-10-21 12:55 | REP ---
PA and lateral chest: Comparison is 10/14/2018. The right costophrenic angle is effaced and there is increased density in the right lower lobe. Findings are suggestive of a right pleural effusion, right lower lobe infiltrate, or combination. This is similar appearance to the comparison study. There is cardiomegaly, unchanged. Left lung is clear. The mary, mediastinum, skeletal structures are unremarkable. There is bilateral shoulder osteoarthritis. Impression: Right pleural effusion and right lower lobe infiltrate without significant interval change. Electronically Signed by Bishop Biggs MD 10/21/2018 12:47 P
== END ==
LOC: M SMT 11:24
PROVIDERS: ATTEND Thoracic Surgery (Cardiothoracic Vascular Surgery)
DX: J96.90 Respiratory failure, unspecified, unspecified whether with hypoxia or hypercapnia (principal); J91.0 Malignant pleural effusion

== ENCOUNTER → 2018-11-26 | Outpatient (CLI) | payer MEDICARE, OTHER ==
[~2018-11-26] MED LIST changes: +BISO10TA10 PO; -BISO10TA14 PO; -DIGO0.123 PO; -FURO40TA2 PO; -LINE1TAB6 PO; -OMEP10CASR PO; -PRED20TA PO; -PRED50TA PO; -TREL1AER IN; -TREL1AER PO
--- NOTE | 2018-11-26 14:52 | REP ---
Right lower extremity Duplex Doppler venous ultrasound: Real time compression and duplex Doppler interrogation of the right lower extremity deep venous system is performed. The right common femoral, superficial femoral and popliteal veins are fully compressible with transducer pressure and demonstrate normal spontaneous and phasic flow, without evidence of deep venous thrombosis. Impression: No evidence of deep venous thrombosis of the right lower extremity femoral popliteal venous system. Electronically Signed by Bishop Gordon MD 11/26/2018 02:44 P
== END ==
LOC: M RAD 14:18
PROVIDERS: ATTEND Internal Medicine
DX: M79.604 Pain in right leg (principal); R22.41 Localized swelling, mass and lump, right lower limb

== ENCOUNTER 2018-11-30 17:51 | Inpatient (IN) | payer MEDICARE, OTHER ==
[~2018-11-30] VITALS: Ht 175.3 cm; Wt 107.3 kg
[~2018-11-30 17:51] MED LIST changes: -CEPH500C PO; -FURO20TA2 PO
[2018-11-30] MEDS ORDERED: CEPH500C PO (17:57)
[2018-11-30] MEDS ORDERED: FURO20TA2 PO (17:57)
[2018-11-30 18:59] LABS: HEMATOCRIT 36.4 % (42.0-52.0); HEMOGLOBIN 11.8 g/dl (13.5-17.5); MEAN CORPUSCULAR HEMOGLOBIN 28.1 pg (27.0-33.0); MEAN CORPUSCULAR HGB CONC 32.4 g/dl (32.0-36.5); MEAN CORPUSCULAR VOLUME 86.7 fl (80.0-96.0); PLATELET COUNT, AUTOMATED 248 10^3/uL (150-450); WHITE BLOOD COUNT 28.9 10^3/uL (4.0-10.0)
[2018-11-30 19:09] LABS: ERYTHROCYTE SEDIMENTATION RATE 118 mm/hr (0-20)
[2018-11-30 19:12] LABS: ATYPICAL LYMPH 2 % (0-5); EOSINOPHILS 1 % (0-3); LYMPHOCYTES 4 % (19-44); METAMYELOCYTES 2 % (0-0); MONOCYTES 3 % (0-5); NEUTROPHILS 88 % (28-66)
[2018-11-30 19:16] LABS: ANISOCYTOSIS 1+; PLATELET ESTIMATE NORMAL (NORMAL); TOXIC GRANULATION 1+
[2018-11-30 19:20] LABS: ALBUMIN 2.7 GM/DL (3.2-5.2); ALT/SGPT 20 U/L (12-78); BILIRUBIN,DIRECT 0.2 MG/DL (0.0-0.2); BILIRUBIN,TOTAL 0.4 MG/DL (0.2-1.0); BLOOD UREA NITROGEN 21 MG/DL (7-18); C REACTIVE PROTEIN QUANTITATIV 9.99 MG/DL (0.00-0.30); CALCIUM LEVEL 8.7 MG/DL (8.8-10.2); CARBON DIOXIDE LEVEL 26 MEQ/L (21-32); CHLORIDE LEVEL 100 MEQ/L (98-107); GLOMERULAR FILTRATION RATE > 60.0 (>42); GLUCOSE, FASTING 119 MG/DL (70-100); POTASSIUM SERUM 4.1 MEQ/L (3.5-5.1); SODIUM LEVEL 136 MEQ/L (136-145); TOTAL PROTEIN 7.3 GM/DL (6.4-8.2)
[2018-11-30] MEDS ORDERED: NS 1,000 ML IV ONE (19:45)
[2018-11-30] MEDS ORDERED: CEFTAROLINE FOSAMIL 600 MG in D5W MINI-BAG PLUS 50 ML IV ONE (19:45)
[2018-11-30] MEDS ORDERED: FOLI1TAB11 PO (21:06)
[2018-11-30] MEDS ORDERED: ACETAMINOPHEN TAB 650MG DOSE (2X325MG) PO PRN (21:15)
--- NOTE | 2018-11-30 21:47 | REPVR ---
EXAM: US Duplex Right Lower Extremity Veins, Limited EXAM DATE/TIME: 11/30/2018 9:43 PM CLINICAL HISTORY: 73 years old, male; Pain; Leg, lower; Right; Additional info: Right leg swelling TECHNIQUE: Imaging protocol: Real-time Duplex ultrasound of the Right Lower Extremity with 2-D rinaldi scale, color Doppler flow and spectral waveform analysis with image documentation. Limited exam was focused on the right lower extremity veins. COMPARISON: US Duplex, Ext,LOWER veins,unilat 11/26/2018 2:28 PM FINDINGS: Right deep veins: Unremarkable. The common femoral, femoral, proximal profunda femoral and popliteal veins are patent without thrombus. Normal Doppler waveforms. Normal compressibility and/or augmentation response. Right superficial veins: Unremarkable. Saphenofemoral junction is patent without thrombus. Soft tissues: Subcutaneous edema is noted at the medial aspect of the knee. IMPRESSION: 1. Subcutaneous edema at the medial aspect of the knee. 2. Negative right lower extremity venous duplex exam without evidence of deep venous thrombosis. Electronically signed by: Jj Bahena On 11/30/2018 21:46:58 PM
[2018-11-30 22:00] VITALS: BP 126/73
--- NOTE | 2018-11-30 22:28 | HPEPDOC ---
[facility] Medical History & Physical Date of Admission Nov 30, 2018 Date of Service: Nov 30, 2018 History and Physical CHIEF COMPLAINT: [RIGHT LEG CELLULITIS , FAILED OUTPT TREATMENT] HISTORY OF PRESENT ILLNESS: [This is a 73 yo male with hx of afib and lung ca on chemo who presented to the ed for worsening right leg cellulitis despite being on po abx. Patient noticed right leg swelling, erythema and pain since Sunday and went to his pmd who sent him to do a venous doppler who was negative . He noticed that the swelling continued to worsened so he went back on and was started on cephalexine,; however the swelling continued despite being on abx, so he came in. He denied fever , chills, chest pain, sob, nausea or vomiting. ] PAST MEDICAL HISTORY: 1. [AFIB ON XARELTO]. 2. [LUNG CANCER ON CHEMO]. 3. . PAST SURGICAL HISTORY: 1. [LEFT KNEE REPLACEMENT ]. 2. [B/L HIP REPLACEMENT ]. 3. [COLECTOMY AND MULTIPLE GI SURGERIES ]. SOCIAL HISTORY: quit smoking in 2001, smoked 5-10 per day for many years, etoh rarely no drugs lives with FAMILY HISTORY: mother - lung ca - in her 50s father heart disease ALLERGIES: Please see below. HOME MEDICATIONS: Please see below. LABORATORY DATA: See below. IMAGING: [ venous doppler - right IMPRESSION: 1. Subcutaneous edema at the medial aspect of the knee. 2. Negative right lower extremity venous duplex exam without evidence of deep venous thrombosis. ] microbiology - f/u blood cx Assessment and Plan right leg cellulitis - c/w ceftaroline for 7 days of abx - venous doppler negative - pt eval -elevate leg -prn pain meds afib, chronic stable c/w xeralto and BB lung ca outpt mgt dvt ppx - on xeralto ful code, from home , no svc Vital Signs Vital Signs Date Time Temp Pulse Resp B/P (MAP) Pulse Ox O2 Delivery O2 Flow Rate FiO2 11/30/18 21:17 98.8 114 20 114/70 (85) 97 Room Air Laboratory Data Labs 24H Laboratory Tests 2 11/30/18 18:34: Lactic Acid Level 2.5*H 11/30/18 18:41: White Blood Count 28.9H, Red Blood Count 4.20L, Hemoglobin 11.8L, Hematocrit 36.4L, Mean Corpuscular Volume 86.7, Mean Corpuscular Hemoglobin 28.1, Mean Corpuscular Hemoglobin Concent 32.4, Red Cell Distribution Width 18.5H, Platelet Count 248, Monocytes # (Auto) , Nucleated Red Blood Cells % (auto) 0.0, Neutrophils 88H, Lymphocytes (Manual) 4L, Monocytes (Manual) 3, Eosinophils (Manual) 1, Metamyelocytes 2H, Atypical Lymphocytes 2, Toxic Granulation 1+, Platelet Estimate NORMAL, Anisocytosis 1+, Erythrocyte Sedimentation Rate 118H, Anion Gap 10, Glomerular Filtration Rate > 60.0, Calcium Level 8.7L, Aspartate Amino Transf (AST/SGOT) 31, Alanine Aminotransferase (ALT/SGPT) 20, Alkaline Phosphatase 163H, Total Bilirubin 0.4, Direct Bilirubin 0.2, C-Reactive Protein, Quantitative 9.99H, Total Protein 7.3, Albumin 2.7L, Albumin/Globulin Ratio 0.59L CBC/BMP Laboratory Tests 11/30/18 18:41 Red Blood Count 4.20 L, Mean Corpuscular Volume 86.7, Mean Corpuscular Hemoglobi n 28.1, Mean Corpuscular Hemoglobin Concent 32.4, Red Cell Distribution Width 18.5 H, Monocytes # (Auto) Microbiology Microbiology 11/30/18 Blood Culture, Received Pending 11/30/18 Blood Culture, Received Pending Home Medications Scheduled Bifidobacterium Infantis (Align) 4 Mg Cap, 4 MG PO DAILY Bisoprolol Fumarate (Bisoprolol Fumarate) 10 Mg Tab, 10 MG PO DAILY Cephalexin (Cephalexin) 500 Mg Capsule, 500 MG PO QID STARTED 11/28/2018 Folic Acid (Folic Acid) 1 Mg Tablet, 1 MG PO DAILY Furosemide (Furosemide) 20 Mg Tablet, 20 MG PO DAILY Multivitamins (Thera M Plus Tablet) 1 Tab Tab, 1 TAB PO DAILY Rivaroxaban (Xarelto) 20 Mg Tab, 20 MG PO QHS Umeclidinium Brm/Vilanterol Tr (Anoro Ellipta 62.5-25 Mcg INH) 1 Aer Aer, 1 PUFF INH DAILY Allergies Coded Allergies: No Known Allergies (Unverified , 04/23/18) A-FIB/CHADSVASC A-FIB History Current/History of A-Fib/PAF?: Yes Current PO Anticoag Therapy: Yes Age/Risk Factor Scoring CHADSVASC: CHADSVASC Response (Comments) Value Age Risk Factor Age 65-74 years old 1 Gender Risk Factor Female 1 Hx of CHF No 0 Hx of HTN No 0 Hx of Stroke/TIA/or VTE No 0 Hx of Diabetes No 0 Hx of Vascular Disease No 0 Total 2 Treatment Treatment ordered: Rivaroxaban MEEK PARDO MD Nov 30, 2018 22:28
[2018-11-30] MEDS: RIVAROXABAN 20 MG TAB (XARELTO) PO SCH (22:35)
[2018-12-01 05:56] LABS: HEMATOCRIT 31.7 % (42.0-52.0); HEMOGLOBIN 10.3 g/dl (13.5-17.5); MEAN CORPUSCULAR HEMOGLOBIN 27.5 pg (27.0-33.0); MEAN CORPUSCULAR HGB CONC 32.5 g/dl (32.0-36.5); MEAN CORPUSCULAR VOLUME 84.5 fl (80.0-96.0); PLATELET COUNT, AUTOMATED 212 10^3/uL (150-450); RED BLOOD COUNT 3.75 10^6/uL (4.30-6.10); WHITE BLOOD COUNT 26.3 10^3/uL (4.0-10.0)
[2018-12-01 06:00] VITALS: BP 123/73
[2018-12-01 06:15] LABS: BLOOD UREA NITROGEN 18 MG/DL (7-18); CALCIUM LEVEL 8.8 MG/DL (8.8-10.2); CARBON DIOXIDE LEVEL 28 MEQ/L (21-32); CHLORIDE LEVEL 105 MEQ/L (98-107); CREATININE FOR GFR 0.85 MG/DL (0.70-1.30); GLOMERULAR FILTRATION RATE > 60.0 (>42); GLUCOSE, FASTING 108 MG/DL (70-100); MAGNESIUM LEVEL 1.8 MG/DL (1.8-2.4); POTASSIUM SERUM 4.5 MEQ/L (3.5-5.1); SODIUM LEVEL 139 MEQ/L (136-145)
--- NOTE | 2018-12-01 07:17 | ECGEPIP ---
[facility] - ED Test Date: 2018-11-30 Pat Name: DELL DAMON Department: Room: [place] [address] Gender: Male [employer]: CT : 1945 Requested By: ARSENIO BLANDON Order Number: [id number] Reading MD: Yeny Wilkinson Measurements Intervals [place] Rate: 103 P: SC: 0 QRS: 4 QRSD: 101 T: 6 QT: 362 QTc: 475 Interpretive Statements ATRIAL FIBRILLATION WITH RAPID VENTRICULAR RESPONSE INCOMPLETE RIGHT BUNDLE BRANCH BLOCK ABNORMAL RHYTHM ECG INCREASED RATE 05/26/18 Electronically Signed on 12-01-2018 7:17:11 EDT by Yeny Wilkinson
[2018-12-01] MEDS: PERCOCET 5MG/325MG TAB PO PRN ×3 (08:43→22:24)
[2018-12-01] MEDS: DOCUSATE SODIUM 100 MG CAP PO SCH ×2 (08:43→20:22)
[2018-12-01] MEDS: FUROSEMIDE 20 MG TAB PO SCH (08:43)
[2018-12-01] MEDS: FOLIC ACID 1 MG TAB PO SCH (08:43)
[2018-12-01] MEDS: MULTIVITAMINS/MINERALS THERAP 1 TAB PO SCH (08:44)
[2018-12-01] MEDS: CEFTAROLINE FOSAMIL 600 MG in D5W MINI-BAG PLUS 50 ML IV SCH ×2 (08:44→20:22)
[2018-12-01] MEDS: BISOPROLOL FUMARATE 10 MG TAB PO SCH (08:45)
--- NOTE | 2018-12-01 10:27 | IPNPDOC ---
Subjective Date Seen The patient was seen on 12/01/18. Subjective Chief Complaint/HPI Patient in no apparent distress. As per patient, swelling and redness has slightly improved on right lower extremity General: Denies: ROS Unobtainable, Chills, Night Sweats, Fatigue, Malaise, Normal Appetite, Other Symptoms Constitutional: Denies: Chills, Fever, Malaise, Night Sweats, Weakness, Fatig ue, Weight Loss, Lethargy, Other Eyes: Denies: Pain, Vision change, Conjunctivae inflammation, Eyelid inflammation, Redness, Other ENT: Denies: Head Aches, Ear Pain, Dysphagia, Sinus Congestion, Post Nasal Drip, Sore Throat, Epistaxis, Other Symptoms Skin: Reports: Other (redness and swelling of right lower extremity) Pulmonary: Denies: Dyspnea, Cough, Pleuritic Chest Pain, Other Symptoms Cardiovascular: Denies: Chest Pain, Palpitations, Orthopnea, Paroxysmal Noc. Dyspnea, Edema, Lt Headedness, Other Symptoms Gastrointestinal: Denies: Nausea, Vomiting, Abdominal Pain, Diarrhea, Constipation, Melena, Hematochezia, Other Symptoms Genitourinary: Denies: Dysuria, Frequency, Incontinence, Hematuria, Retention, Other Symptoms Hematologic: Denies: Bruising, Bleeding Excessively, Petecchia, Purpura, Enlarged Lymph Nodes, Other Hematologic Musculoskeletal: Denies: Neck Pain, Back Pain, Shoulder Pain, Arm Pain, Hand Pain, Leg Pain, Foot Pain, Joint Pain, Muscle Pain, Spasms, Other Symptoms Neurological: Denies: Weakness, Numbness, Incoordination, Change in speech, Confusion, Seizures, Other Symptoms Objective Physical Examination General Exam: Positive: Alert, Cooperative Eye Exam: Positive: PERRLA, Conjunctiva & lids normal ENT Exam: Positive: Atraumatic, Mucous membr. moist/pink Neck Exam: Positive: Supple Chest Exam: Positive: Clear to auscultation, Normal air movement Heart Exam: Positive: Rate Normal, Normal S1, Normal S2 Abdomen Exam: Positive: Normal bowel sounds, Soft Extremity Exam: Positive: Other (, positive localized increased temperature, redness and swelling right lower extremity still. Pulses equal bilaterally) Skin Exam: Positive: Other skin issue (. As above) Neuro Exam: Positive: Strength at 5/5 X4 ext, Sensation Intact Assessment /Plan Problems (1) Cellulitis of right lower extremity Status: Acute Problem Text: Continue IV fluids Continue IV CEFTROLINE CBC, CMP in a.m. Keep right leg elevated Due to prophylaxis. Patient already on anticoagulation secondary to A. fib (2) Afib Status: Chronic Problem Text: Continue beta blockers and anticoagulation Rate is under well control (3) Adenocarcinoma of right lung, stage 4 Status: Chronic Problem Text: On chemotherapy Other as outpatient therapy Plan/VTE VTE Prophylaxis Ordered?: Yes VS, I&O, 24H, Fishbone Vital Signs/I&O Vital Signs Date Time Temp Pulse Resp B/P (MAP) Pulse Ox O2 Delivery O2 Flow Rate FiO2 12/01/18 08:45 110 123/73 12/01/18 08:43 18 12/01/18 06:00 97.5 99 11/30/18 21:17 Room Air I&O- Last 24 Hours up to 6 AM 12/01/18 06:00 Intake Total 1050 ml Balance 1050 ml Laboratory Data 24H LABS Laboratory Tests 2 11/30/18 18:34: Lactic Acid Level 2.5*H 11/30/18 18:41: White Blood Count 28.9H, Red Blood Count 4.20L, Hemoglobin 11.8L, Hematocrit 36.4L, Mean Corpuscular Volume 86.7, Mean Corpuscular Hemoglobin 28.1, Mean Corpuscular Hemoglobin Concent 32.4, Red Cell Distribution Width 18.5H, Platelet Count 248, Monocytes # (Auto) , Nucleated Red Blood Cells % (auto) 0.0, Neutrophils 88H, Lymphocytes (Manual) 4L, Monocytes (Manual) 3, Eosinophils (Ma nual) 1, Metamyelocytes 2H, Atypical Lymphocytes 2, Toxic Granulation 1+, Platelet Estimate NORMAL, Anisocytosis 1+, Erythrocyte Sedimentation Rate 118H, Anion Gap 10, Glomerular Filtration Rate > 60.0, Calcium Level 8.7L, Aspartate Amino Transf (AST/SGOT) 31, Alanine Aminotransferase (ALT/SGPT) 20, Alkaline Phosphatase 163H, Total Bilirubin 0.4, Direct Bilirubin 0.2, C-Reactive Protein, Quantitative 9.99H, Total Protein 7.3, Albumin 2.7L, Albumin/Globulin Ratio 0.59L 11/30/18 23:17: Lactic Acid Followup at 4 Hours 1.0 12/01/18 05:31: Nucleated Red Blood Cells % (auto) 0.0, Anion Gap 6L, Glomerular Filtration Rate > 60.0, Calcium Level 8.8, Blood Urea Nitrogen 18, Creatinine 0.85, Sodium Level 139, Potassium Level 4.5, Chloride Level 105, Carbon Dioxide Level 28, Magnesium Level 1.8 CBC/BMP Laboratory Tests 11/30/18 18:41 Red Blood Count 4.20 L, Mean Corpuscular Volume 86.7, Mean Corpuscular Hemoglobin 28.1, Mean Corpuscular Hemoglobin Concent 32.4, Red Cell Distribution Width 18.5 H, Monocytes # (Auto) 12/01/18 05:31 Red Blood Count 3.75 L, Mean Corpuscular Volume 84.5, Mean Corpuscular Hemoglob in 27.5, Mean Corpuscular Hemoglobin Concent 32.5, Red Cell Distribution Width 18.1 H, Calcium Level 8.8 Microbiology Microbiology 11/30/18 Blood Culture, Received Pending 11/30/18 Blood Culture, Received Pending ADRIÁN WILKINS MD Dec 01, 2018 10:27
[2018-12-01 14:00] VITALS: BP 121/74
[2018-12-01] MEDS: RIVAROXABAN 20 MG TAB (XARELTO) PO SCH (20:22)
[2018-12-01 21:43] VITALS: BP 119/69
[2018-12-02] MEDS: PERCOCET 5MG/325MG TAB PO PRN ×3 (05:42→22:19)
[2018-12-02 06:00] VITALS: BP 115/69
[2018-12-02 06:13] LABS: BASO # 0.1 10^3/uL (0.0-0.2); BASO % 0.4 % (0.0-1.0); EOS # 0.1 10^3/uL (0.0-0.50); EOS % 0.4 % (0.0-3.0); HEMOGLOBIN 10.9 g/dl (13.5-17.5); LYMPH # 0.7 10^3/uL (1.5-4.5); LYMPH % 2.4 % (24.0-44.0); MEAN CORPUSCULAR HEMOGLOBIN 27.9 pg (27.0-33.0); MEAN CORPUSCULAR HGB CONC 32.1 g/dl (32.0-36.5); MONO # 1.8 10^3/uL (0.0-0.8); MONO % 6.5 % (0.0-5.0); NEUTROPHILS # 23.6 10^3/uL (1.8-7.7); NEUTROPHILS % 87.3 % (36.0-66.0); PLATELET COUNT, AUTOMATED 237 10^3/uL (150-450); RED BLOOD COUNT 3.91 10^6/uL (4.30-6.10)
[2018-12-02 06:32] LABS: ALBUMIN 2.3 GM/DL (3.2-5.2); ALT/SGPT 14 U/L (12-78); BILIRUBIN,TOTAL 0.3 MG/DL (0.2-1.0); BLOOD UREA NITROGEN 18 MG/DL (7-18); CALCIUM LEVEL 8.6 MG/DL (8.8-10.2); CARBON DIOXIDE LEVEL 26 MEQ/L (21-32); CHLORIDE LEVEL 103 MEQ/L (98-107); CREATININE FOR GFR 0.92 MG/DL (0.70-1.30); GLOMERULAR FILTRATION RATE > 60.0 (>42); GLUCOSE, FASTING 112 MG/DL (70-100); POTASSIUM SERUM 4.2 MEQ/L (3.5-5.1); SODIUM LEVEL 137 MEQ/L (136-145); TOTAL PROTEIN 7.2 GM/DL (6.4-8.2)
[2018-12-02] MEDS: FOLIC ACID 1 MG TAB PO SCH (07:59)
[2018-12-02] MEDS: MULTIVITAMINS/MINERALS THERAP 1 TAB PO SCH (07:59)
[2018-12-02] MEDS: DOCUSATE SODIUM 100 MG CAP PO SCH ×2 (07:59→20:18)
[2018-12-02] MEDS: FUROSEMIDE 20 MG TAB PO SCH (07:59)
[2018-12-02] MEDS: CEFTAROLINE FOSAMIL 600 MG in D5W MINI-BAG PLUS 50 ML IV SCH (07:59)
[2018-12-02] MEDS: BISOPROLOL FUMARATE 10 MG TAB PO SCH (08:00)
--- NOTE | 2018-12-02 12:20 | IPNPDOC ---
Subjective Date Seen The patient was seen on 12/02/18. Subjective Chief Complaint/HPI Still has the redness and increased local temperature and right lower extremity General: Denies: ROS Unobtainable, Chills, Night Sweats, Fatigue, Malaise, Normal Appetite, Other Symptoms Constitutional: Denies: Chills, Fever, Malaise, Night Sweats, Weakness, Fatigue, Weight Loss, Lethargy, Other Eyes: Denies: Pain, Vision change, Conjunctivae inflammation, Eyelid inflammation, Redness, Other ENT: Denies: Head Aches, Ear Pain, Dysphagia, Sinus Congestion, Post Nasal Drip, Sore Throat, Epistaxis, Other Symptoms Skin: Reports: Rash; Denies: Lesions, Jaundice, Bruising, Itching, Dry, Breakdown, Nail Changes, Other Pulmonary: Denies: Dyspnea, Cough, Pleuritic Chest Pain, Other Symptoms Cardiovascular: Denies: Chest Pain, Palpitations, Orthopnea, Paroxysmal Noc. Dyspnea, Edema, Lt Headedness, Other Symptoms Gastrointestinal: Denies: Nausea, Vomiting, Abdominal Pain, Diarrhea, Constipation, Melena, Hematochezia, Other Symptoms Musculoskeletal: Denies: Neck Pain, Back Pain, Shoulder Pain, Arm Pain, Hand Pain, Leg Pain, Foot Pain, Joint Pain, Muscle Pain, Spasms, Other Symptoms Neurological: Denies: Weakness, Numbness, Incoordination, Change in speech, Confusion, Seizures, Other Symptoms Objective Physical Examination General Exam: Positive: Alert, Cooperative Eye Exam: Positive: PERRLA, Conjunctiva & lids normal ENT Exam: Positive: Atraumatic, Mucous membr. moist/pink Neck Exam: Positive: Supple Chest Exam: Positive: Clear to auscultation, Normal air movement Heart Exam: Positive: Rate Normal, Normal S1, Normal S2 Abdomen Exam: Positive: Normal bowel sounds, Soft Extremity Exam: Positive: Other (, positive localized increased temperature, redness and swelling right lower extremity still. Pulses equal bilaterally) Skin Exam: Positive: Other skin issue (. As above) Neuro Exam: Positive: Strength at 5/5 X4 ext, Sensation Intact Assessment /Plan Problems (1) Cellulitis of right lower extremity Status: Acute Problem Text: WBC count still is 27,000 Continue IV fluids Continue IV CEFTROLINE for one more day. If WBC count does not improve, then we'll change antibiotics in a.m. CBC, CMP in a.m. Keep right leg elevated Due to prophylaxis. Patient already on anticoagulation secondary to A. fib (2) Afib Status: Chronic Problem Text: Continue beta blockers and anticoagulation Rate is under well control (3) Adenocarcinoma of right lung, stage 4 Status: Chronic Problem Text: On chemotherapy Other as outpatient therapy Plan/VTE VTE Prophylaxis Ordered?: Yes VS, I&O, 24H, Fishbone Vital Signs/I&O Vital Signs Date Time Temp Pulse Resp B/P (MAP) Pulse Ox O2 Delivery O2 Flow Rate FiO2 12/02/18 11:49 18 12/02/18 08:00 97 115/69 12/02/18 06:00 98.4 95 11/30/18 21:17 Room Air I&O- Last 24 Hours up to 6 AM 12/02/18 06:00 Intake Total 1810 ml Balance 1810 ml Laboratory Data 24H LABS Laboratory Tests 2 12/02/18 05:45: Immature Granulocyte % (Auto) 3.0, White Blood Count 27.0H, Red Blood Count 3.91L, Hemoglobin 10.9L, Hematocrit 34.0L, Mean Corpuscular Volume 87.0, Mean Corpuscular Hemoglobin 27.9, Mean Corpuscular Hemoglobin Concent 32.1, Red Cell Distribution Width 18.5H, Platelet Count 237, Neutrophils (%) (Auto) 87.3H, Lymphocytes (%) (Auto) 2.4L, Monocytes (%) (Auto) 6.5H, Eosinophils (%) (Auto) 0.4, Basophils (%) (Auto) 0.4, Neutrophils # (Auto) 23.6H, Lymphocytes # (Auto) 0.7L, Monocytes # (Auto) 1.8H, Eosinophils # (Auto) 0.1, Basophils # (Auto) 0.1, Nucleated Red Blood Cells % (auto) 0.0, Anion Gap 8, Glomerular Filtration Rate > 60.0, Blood Urea Nitrogen 18, Creatinine 0.92, Sodium Level 137, Potassium Level 4.2, Chloride Level 103, Carbon Dioxide Level 26, Calcium Level 8.6L, As partate Amino Transf (AST/SGOT) 22, Alanine Aminotransferase (ALT/SGPT) 14, Alkaline Phosphatase 145H, Total Bilirubin 0.3, Total Protein 7.2, Albumin 2.3L, Albumin/Globulin Ratio 0.47L CBC/BMP Laboratory Tests 12/02/18 05:45 Red Blood Count 3.91 L, Mean Corpuscular Volume 87.0, Mean Corpuscular Hemoglobin 27.9, Mean Corpuscular Hemoglobin Concent 32.1, Red Cell Distribution Width 18.5 H, Neutrophils (%) (Auto) 87.3 H, Lymphocytes (%) (Auto) 2.4 L, Monocytes (%) (Auto) 6.5 H, Eosinophils (%) (Auto) 0.4, Basophils (%) (Auto) 0.4, Neutrophils # (Auto) 23.6 H, Lymphocytes # (Auto) 0.7 L, Monocytes # (Auto) 1.8 H, Eosinophils # (Auto) 0.1, Basophils # (Auto) 0.1, Calcium Level 8.6 L, Aspartate Amino Transf (AST/SGOT) 22, Alanine Aminotransferase (ALT/SGPT) 14, Alkaline Phosphatase 145 H, Total Bilirubin 0.3, Total Protein 7.2, Albumin 2.3 L Microbiology Microbiology 11/30/18 Blood Culture - Preliminary, Resulted No growth after 24 hours . All specim... 11/30/18 Blood Culture - Preliminary, Resulted No growth after 24 hours . All specim... ADRIÁN WILKINS MD Dec 02, 2018 12:20
[2018-12-02 14:00] VITALS: BP 118/74
[2018-12-02] MEDS ORDERED: VANCOMYCIN HCL 1,000 MG, VIAL MATE ADAPTER 1 EACH in D5W 250 ML IV ONE (15:45)
[2018-12-02] MEDS ORDERED: VANCOMYCIN HCL 1,000 MG, VIAL MATE ADAPTER 1 EACH in D5W 250 ML IV SCH ×2 (16:00→17:00)
[2018-12-02] MEDS: RIVAROXABAN 20 MG TAB (XARELTO) PO SCH (20:18)
[2018-12-02 22:00] VITALS: BP 115/75
--- NOTE | 2018-12-02 23:52 | PHACANCOPD ---
PHARMACY VANCOMYCIN DOSING Pt Demographics Demographics Patient Age:73 , Weight:107.300 , Gender: male Adjusted Body Weight Events Past 24 Hours Events Past 24 Hours: NO: Dialysis, Diuretic Therapy, Change in CrCl, Fever, Elevation in WBC, Pending Diagnostics, Pending Procedures, Other Vancomycin Vancomycin indication: SSSI Vancomycin Target Ranges: 15-20 mcg/ml Vancomycin Load Y/N: Yes Load Dose Date Time Vancomycin Load Dose: 2GM IV Date: 12/02/18 Time: 3806-6496 Vancomycin Dose Date: 12/03/18. Current Vancomycin Dose: [1GM IV Q12H START 02:00] Intermittent Dosing?: No Labs Labs Laboratory Tests 12/02/18 05:45 Red Blood Count 3.91 L, Mean Corpuscular Volume 87.0, Mean Corpuscular Hemoglobin 27.9, Mean Corpuscular Hemoglobin Concent 32.1, Red Cell Distribution Width 18.5 H, Neutrophils (%) (Auto) 87.3 H, Lymphocytes (%) (Auto) 2.4 L, Monocytes (%) (Auto) 6.5 H, Eosinophils (%) (Auto) 0.4, Basophils (%) (Auto) 0.4, Neutrophils # (Auto) 23.6 H, Lymphocytes # (Auto) 0.7 L, Monocytes # (Auto) 1.8 H, Eosinophils # (Auto) 0.1, Basophils # (Auto) 0.1, Calcium Level 8.6 L, Aspartate Amino Transf (AST/SGOT) 22, Alanine Aminotransferase (ALT/SGPT) 14, Alkaline Phosphatase 145 H, Total Bilirubin 0.3, Total Protein 7.2, Albumin 2.3 L Micro Microbiology 11/30/18 Blood Culture - Preliminary, Resulted No Growth after 48 hours. All Specime... 11/30/18 Blood Culture - Preliminary, Resulted No Growth after 48 hours. All Specime... Creatinine Clearance Date:12/02/18. Creatinine Clearance: [>70ml/min]. Assessment and Plan Maintaining Current Dose?: Yes Reason for dose change: No Dose Change Pharmacist Note Pharmacist Note Date: 12/02/18. PharmD note: VANCOMYCIN 2GM LOAD @16:00 TODAY FOLLOWED BY 1GM IV Q12H STARTING AT 02:00 12/03/18. VANCO TROUGH WHEN AT [facility] Dec 02, 2018 23:52
[2018-12-03] MEDS: VANCOMYCIN HCL 1,000 MG, VIAL MATE ADAPTER 1 EACH in D5W 250 ML IV SCH ×2 (01:24→14:54)
[2018-12-03 06:00] VITALS: BP 115/77
[2018-12-03 06:17] LABS: BASO # 0.1 10^3/uL (0.0-0.2); BASO % 0.3 % (0.0-1.0); EOS # 0.1 10^3/uL (0.0-0.50); EOS % 0.3 % (0.0-3.0); HEMATOCRIT 32.6 % (42.0-52.0); HEMOGLOBIN 10.5 g/dl (13.5-17.5); LYMPH # 0.9 10^3/uL (1.5-4.5); LYMPH % 3.6 % (24.0-44.0); MEAN CORPUSCULAR HEMOGLOBIN 27.8 pg (27.0-33.0); MEAN CORPUSCULAR HGB CONC 32.2 g/dl (32.0-36.5); MEAN CORPUSCULAR VOLUME 86.2 fl (80.0-96.0); MONO # 1.4 10^3/uL (0.0-0.8); MONO % 5.9 % (0.0-5.0); NEUTROPHILS # 21.1 10^3/uL (1.8-7.7); NEUTROPHILS % 88.1 % (36.0-66.0); PLATELET COUNT, AUTOMATED 238 10^3/uL (150-450); RED BLOOD COUNT 3.78 10^6/uL (4.30-6.10); WHITE BLOOD COUNT 23.9 10^3/uL (4.0-10.0)
[2018-12-03 06:38] LABS: ALBUMIN 2.2 GM/DL (3.2-5.2); ALT/SGPT 13 U/L (12-78); BILIRUBIN,TOTAL 0.4 MG/DL (0.2-1.0); BLOOD UREA NITROGEN 15 MG/DL (7-18); CALCIUM LEVEL 8.8 MG/DL (8.8-10.2); CARBON DIOXIDE LEVEL 29 MEQ/L (21-32); CHLORIDE LEVEL 105 MEQ/L (98-107); CREATININE FOR GFR 0.97 MG/DL (0.70-1.30); GLOMERULAR FILTRATION RATE > 60.0 (>42); GLUCOSE, FASTING 110 MG/DL (70-100); POTASSIUM SERUM 3.9 MEQ/L (3.5-5.1); SODIUM LEVEL 138 MEQ/L (136-145)
[2018-12-03] MEDS: BISOPROLOL FUMARATE 10 MG TAB PO SCH (09:07)
[2018-12-03] MEDS: FUROSEMIDE 20 MG TAB PO SCH (09:07)
[2018-12-03] MEDS: MULTIVITAMINS/MINERALS THERAP 1 TAB PO SCH (09:07)
[2018-12-03] MEDS: FOLIC ACID 1 MG TAB PO SCH (09:07)
[2018-12-03] MEDS: DOCUSATE SODIUM 100 MG CAP PO SCH ×2 (09:10→20:39)
[2018-12-03] MEDS: PERCOCET 5MG/325MG TAB PO PRN ×2 (09:10→22:02)
--- NOTE | 2018-12-03 11:50 | IPNPDOC ---
Text Note Date of Service The patient was seen on 12/03/18. NOTE S: patient states leg swelling and redness to right is greatly improved compared to yesterday with this initiation of vancomycin antibiotic. States no fever, no CP, no SOB. States chronic right ankle swelling and pain. Fell 2 weeks ago and hurt right ankle but doesn't know if infection was caused by it. O: Vitals as below General: pleasant NAD, AAOx3 Heart -irreg/irreg no murmur -rate controlled afib at 70 LCTA no W/R/R Ext: right leg with calor,rubor from tibeal plateau to medial malleoulus; palpable DP pulses bilatearlly, wrinkling and small pustules present to right pretibia. Left lower extremity wtih chronic ankle/heel edema, no pretib edema, no erythema to left leg. A/P: (1) Cellulitis of right lower extremity (vs vasculitis) Status: Acute Problem Text: WBC count still is 27,000 Continue IV fluids no improvement with CEFTROLINE, improved with vancomycin Keep right leg elevated Check right foot/ankle xray, uric acid. ESR/CRP in AM (2) Afib Status: Chronic Problem Text: Continue beta blockers and anticoagulation Rate is under well control (3) Adenocarcinoma of right lung, stage 4 Status: Chronic Problem Text: On chemotherapy Other as outpatient therapy VS,Janese, I+O VS, [place], I+O Laboratory Tests 12/03/18 06:02 Red Blood Count 3.78 L, Mean Corpuscular Volume 86.2, Mean Corpuscular Hemoglobin 27.8, Mean Corpuscular Hemoglobin Concent 32.2, Red Cell Distribution Width 18.6 H, Neutrophils (%) (Auto) 88.1 H, Lymphocytes (%) (Auto) 3.6 L, Monocytes (%) (Auto) 5.9 H, Eosinophils (%) (Auto) 0.3, Basophils (%) (Auto) 0.3, Neutrophils # (Auto) 21.1 H, Lymphocytes # (Auto) 0.9 L, Monocytes # (Auto) 1.4 H, Eosinophils # (Auto) 0.1, Basophils # (Auto) 0.1, Calcium Level 8.8, Aspartate Amino Transf (AST/SGOT) 20, Alanine Aminotransferase (ALT/SGPT) 13, Alkaline Phosphatase 134 H, Total Bilirubin 0.4, Total Protein 7.0, Albumin 2.2 L Vital Signs Date Time Temp Pulse Resp B/P (MAP) Pulse Ox O2 Delivery O2 Flow Rate FiO2 12/03/18 10:00 18 12/03/18 09:07 97 115/77 12/03/18 06:00 97.6 95 11/30/18 21:17 Room Air I&O- Last 24 Hours up to 6 AM 12/03/18 06:00 Intake Total 2710 ml Balance 2710 ml MAXINE COLLINS DO Dec 03, 2018 11:50
[2018-12-03 12:50] LABS: URIC ACID 8.1 MG/DL (3.5-7.2)
--- NOTE | 2018-12-03 12:59 | REP ---
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 Joint spaces and mineralization are otherwise are unremarkable. There is a calcaneal plantar spur. I suspect there is soft tissue edema over the dorsum. This should be confirmed clinically. Electronically Signed by Bishop Biggs MD 12/03/2018 12:52 P
--- NOTE | 2018-12-03 13:02 | REP ---
Right ankle four views: Mineralization and joint spaces are unremarkable. There is no fracture or dislocation. I suspect there is circumferential soft tissue edema. This should be confirmed clinically. There is a calcaneal plantar spur. Electronically Signed by Bishop Biggs MD 12/03/2018 12:53 P
[2018-12-03 14:00] VITALS: BP 111/74
[2018-12-03] MEDS: RIVAROXABAN 20 MG TAB (XARELTO) PO SCH (20:39)
[2018-12-03 22:00] VITALS: BP 108/71
[2018-12-03] MEDS ORDERED: MOM 30ML SUSPENSION UDC PO PRN (22:00)
[2018-12-04] MEDS: VANCOMYCIN HCL 1,000 MG, VIAL MATE ADAPTER 1 EACH in D5W 250 ML IV SCH ×2 (01:33→15:54)
[2018-12-04 06:00] VITALS: BP 109/75
[2018-12-04 06:50] LABS: BASO % 0.1 % (0.0-1.0); EOS # 0.1 10^3/uL (0.0-0.50); EOS % 0.8 % (0.0-3.0); HEMATOCRIT 30.9 % (42.0-52.0); LYMPH # 0.9 10^3/uL (1.5-4.5); LYMPH % 4.9 % (24.0-44.0); MEAN CORPUSCULAR HEMOGLOBIN 27.5 pg (27.0-33.0); MEAN CORPUSCULAR HGB CONC 32.4 g/dl (32.0-36.5); MEAN CORPUSCULAR VOLUME 85.1 fl (80.0-96.0); MONO # 1.5 10^3/uL (0.0-0.8); MONO % 7.8 % (0.0-5.0); NEUTROPHILS # 15.9 10^3/uL (1.8-7.7); NEUTROPHILS % 85.3 % (36.0-66.0); PLATELET COUNT, AUTOMATED 247 10^3/uL (150-450); RED BLOOD COUNT 3.63 10^6/uL (4.30-6.10); WHITE BLOOD COUNT 18.6 10^3/uL (4.0-10.0)
[2018-12-04 07:15] LABS: ALBUMIN 2.1 GM/DL (3.2-5.2); ALT/SGPT 16 U/L (12-78); BILIRUBIN,TOTAL 0.3 MG/DL (0.2-1.0); BLOOD UREA NITROGEN 15 MG/DL (7-18); CALCIUM LEVEL 8.6 MG/DL (8.8-10.2); CARBON DIOXIDE LEVEL 28 MEQ/L (21-32); CHLORIDE LEVEL 104 MEQ/L (98-107); GLOMERULAR FILTRATION RATE > 60.0 (>42); GLUCOSE, FASTING 103 MG/DL (70-100); POTASSIUM SERUM 3.8 MEQ/L (3.5-5.1); SODIUM LEVEL 137 MEQ/L (136-145); TOTAL PROTEIN 6.7 GM/DL (6.4-8.2)
[2018-12-04 07:37] LABS: ERYTHROCYTE SEDIMENTATION RATE 106 mm/hr (0-20)
[2018-12-04] MEDS: BISOPROLOL FUMARATE 10 MG TAB PO SCH (09:04)
[2018-12-04] MEDS: DOCUSATE SODIUM 100 MG CAP PO SCH ×2 (09:04→21:00)
[2018-12-04] MEDS: MULTIVITAMINS/MINERALS THERAP 1 TAB PO SCH (09:04)
[2018-12-04] MEDS: FOLIC ACID 1 MG TAB PO SCH (09:05)
[2018-12-04] MEDS: FUROSEMIDE 20 MG TAB PO SCH (09:05)
--- NOTE | 2018-12-04 13:56 | PHACANCOPD ---
PHARMACY VANCOMYCIN DOSING Pt Demographics Demographics Patient Age:73 , Weight:107.300 , Gender: male Adjusted Body Weight Events Past 24 Hours Events Past 24 Hours: NO: Dialysis, Diuretic Therapy, Change in CrCl, Fever, Elevation in WBC, Pending Diagnostics, Pending Procedures, Other Vancomycin Vancomycin indication: SSSI Vancomycin Target Ranges: 15-20 mcg/ml Vancomycin Load Y/N: Yes Load Dose Date Time Vancomycin Load Dose: 2GM IV Date: 12/02/18 Time: 6772-7482 Vancomycin Dose Date: 12/03/18. Current Vancomycin Dose: [1GM IV Q12H START 02:00] Intermittent Dosing?: No Labs Micro Microbiology 11/30/18 Blood Culture - Preliminary, Resulted No Growth after 72 hours. All specime... 11/30/18 Blood Culture - Preliminary, Resulted No Growth after 72 hours. All specime... Creatinine Clearance Date:12/02/18. Creatinine Clearance: [>70ml/min]. Assessment and Plan Maintaining Current Dose?: No Reason for dose change: Trough too low Pharmacist Note Pharmacist Note DATE 12/04/18: VANCO TROUGH RESULTED AT 11 @1300. PATIENT'S CALCULATED CRCL TODAY IS 73 ML/MIN, UP FROM 67 ML/MIN. A RESULT I INCREASED DOSE TO 1500MG Q12H TO RESUME AT 1400. SCHEDULED TROUGH AT 1300 TOMORROW TO CHECK PROGRESS. WILL CONTINUE TO MONITOR PATIENT AND ADJUST DOSE NEEDED. Date: 12/02/18. PharmD note: VANCOMYCIN 2GM LOAD @16:00 TODAY FOLLOWED BY 1GM IV Q12H STARTING AT 02:00 12/03/18. VANCO TROUGH WHEN [facility] Dec 04, 2018 13:56
[2018-12-04 14:00] VITALS: BP 105/70
[2018-12-04] MEDS: VANCOMYCIN HCL 500 MG in D5W MINI-BAG PLUS 100 ML IV SCH (18:10)
--- NOTE | 2018-12-04 18:34 | IPNPDOC ---
Text Note Date of Service The patient was seen on 12/04/18. NOTE S: patient states less leg pain and swelling. no fever. no N, no V; Has multiple family visiting O: Vitals as below General: pleasant NAD AAOx3 HRRR LCTA Ext: bilateral ankle edema (right greater than left) Skin: Right pretibial erythema decreased by 1cm; less rubor/calor; small lateral blister 10mm Xray: no fracture; +soft tissue edema A/P: (1) Cellulitis of right lower extremity (vs vasculitis) Status: Acute no improvement with CEFTROLINE, improved with vancomycin Keep right leg elevated; slowly improving monitor vanc levels to avoid toxicity (2) Afib Status: Chronic Problem Text: Continue beta blockers and anticoagulation Rate is under well control (3) Adenocarcinoma of right lung, stage 4 Status: Chronic Problem Text: On chemotherapy, next scheduled chemo treatment second week in December VS,Fishbone, I+O VS, Fishbone, I+O Laboratory Tests 12/04/18 06:16 Red Blood Count 3.63 L, Mean Corpuscular Volume 85.1, Mean Corpuscular H emoglobin 27.5, Mean Corpuscular Hemoglobin Concent 32.4, Red Cell Distribution Width 18.6 H, Neutrophils (%) (Auto) 85.3 H, Lymphocytes (%) (Auto) 4.9 L, Monocytes (%) (Auto) 7.8 H, Eosinophils (%) (Auto) 0.8, Basophils (%) (Auto) 0.1, Neutrophils # (Auto) 15.9 H, Lymphocytes # (Auto) 0.9 L, Monocytes # (Auto) 1.5 H, Eosinophils # (Auto) 0.1, Basophils # (Auto) 0.0, Calcium Level 8.6 L, Aspartate Amino Transf (AST/SGOT) 22, Alanine Aminotransferase (ALT/SGPT) 16, Alkaline Phosphatase 120 H, Total Bilirubin 0.3, Total Protein 6.7, Albumin 2.1 L Vital Signs Date Time Temp Pulse Resp B/P (MAP) Pulse Ox O2 Delivery O2 Flow Rate FiO2 12/04/18 09:04 99 109/75 12/04/18 06:00 98.1 18 98 11/30/18 21:17 Room Air I&O- Last 24 Hours up to 6 AM 12/04/18 06:00 Intake Total 1980 ml Output Total 50 ml Balance 1930 ml MAXINE COLLINS DO Dec 04, 2018 11:31
[2018-12-04] MEDS: RIVAROXABAN 20 MG TAB (XARELTO) PO SCH (21:00)
[2018-12-04 22:00] VITALS: BP 107/70
[2018-12-05] MEDS: VANCOMYCIN HCL 1,000 MG, VIAL MATE ADAPTER 1 EACH in D5W 250 ML IV SCH ×2 (02:08→13:54)
[2018-12-05] MEDS: VANCOMYCIN HCL 500 MG in D5W MINI-BAG PLUS 100 ML IV SCH ×2 (03:59→15:17)
[2018-12-05 06:00] VITALS: BP 110/71
[2018-12-05 06:46] LABS: HEMATOCRIT 32.7 % (42.0-52.0); HEMOGLOBIN 10.4 g/dl (13.5-17.5); MEAN CORPUSCULAR HEMOGLOBIN 27.7 pg (27.0-33.0); MEAN CORPUSCULAR HGB CONC 31.8 g/dl (32.0-36.5); MEAN CORPUSCULAR VOLUME 87.2 fl (80.0-96.0); PLATELET COUNT, AUTOMATED 247 10^3/uL (150-450); RED BLOOD COUNT 3.75 10^6/uL (4.30-6.10); WHITE BLOOD COUNT 15.5 10^3/uL (4.0-10.0)
[2018-12-05 07:02] LABS: BLOOD UREA NITROGEN 16 MG/DL (7-18); CALCIUM LEVEL 8.4 MG/DL (8.8-10.2); CARBON DIOXIDE LEVEL 27 MEQ/L (21-32); CHLORIDE LEVEL 105 MEQ/L (98-107); CREATININE FOR GFR 0.77 MG/DL (0.70-1.30); GLOMERULAR FILTRATION RATE > 60.0 (>42); GLUCOSE, FASTING 103 MG/DL (70-100); POTASSIUM SERUM 3.9 MEQ/L (3.5-5.1); SODIUM LEVEL 138 MEQ/L (136-145)
[2018-12-05] MEDS: FUROSEMIDE 20 MG TAB PO SCH (08:40)
[2018-12-05] MEDS: BISOPROLOL FUMARATE 10 MG TAB PO SCH (08:41)
[2018-12-05] MEDS: DOCUSATE SODIUM 100 MG CAP PO SCH ×2 (08:41→21:11)
[2018-12-05] MEDS: FOLIC ACID 1 MG TAB PO SCH (08:41)
[2018-12-05] MEDS: MULTIVITAMINS/MINERALS THERAP 1 TAB PO SCH (08:41)
[2018-12-05] MEDS: PERCOCET 5MG/325MG TAB PO PRN (08:42)
[2018-12-05] MEDS ORDERED: LINE1TAB6 PO (11:30)
--- NOTE | 2018-12-05 14:32 | IPNPDOC ---
Text Note Date of Service The patient was seen on 12/05/18. NOTE O: Vitals as below General: pleasant NAD AAOx3 HRRR LCTA Ext: bilateral ankle edema (right greater than left) Skin: Right pretibial erythema decreased by 1cm; less rubor/calor; small lateral blister 10mm Xray: no fracture; +soft tissue edema S: patient states episode of leg pain when first standing on leg to walk. Using walker as needed for stability. Daughter present in room. He has no fever and states redness to leg improving O: Vitals as below General: pleasant NAD AAOx3 Heart - irreg/irreg - rate controlled LCTA no W/R/R Skin: right pretib with erythema, no calor; decreased erythema by 2.5cm compared to admission. improving Ext: bilateral ankle edema A/P: (1) Cellulitis of right lower extremity (vs vasculitis) Status: Acute no improvement with CEFTROLINE (or outpatient keflex), improved with vancomycin. Consider changing vanc to zyvox tomorrow AM if WBC continues to normalize. Keep right leg elevated; monitor vanc levels to avoid toxicity (2) Afib Status: Chronic Problem Text: Continue beta blockers and anticoagulation Rate is under well control (3) Adenocarcinoma of right lung, stage 4 Status: Chronic Problem Text: On chemotherapy, next scheduled chemo treatment second week in December 11. elevated uric acid without signs of gout. Discussed with patient s/s of gout and prevention/treatment. he will follow up with PCP to discuss treatment VS,Fishbone, I+O VS, Fishbone, I+O Laboratory Tests 12/05/18 06:26 Red Blood Count 3.75 L, Mean Corpuscular Volume 87.2, Mean Corpuscular Hemoglobin 27.7, Mean Corpuscular Hemoglobin Concent 31.8 L, Red Cell Distribution Width 18.6 H, Calcium Level 8.4 L Vital Signs Date Time Temp Pulse Resp B/P (MAP) Pulse Ox O2 Delivery O2 Flow Rate FiO2 12/05/18 09:12 18 12/05/18 06:00 97.7 97 110/71 (84) 96 11/30/18 21:17 Room Air I&O- Last 24 Hours up to 6 AM 12/05/18 06:00 Intake Total 2410 ml Output Total 750 ml Balance 1660 ml MAXINE COLLINS DO Dec 05, 2018 14:32
[2018-12-05 14:49] VITALS: BP 109/71
[2018-12-05] MEDS: RIVAROXABAN 20 MG TAB (XARELTO) PO SCH (21:11)
[2018-12-05 22:00] VITALS: BP 113/83
[2018-12-06] MEDS: VANCOMYCIN HCL 1,000 MG, VIAL MATE ADAPTER 1 EACH in D5W 250 ML IV SCH (01:31)
[2018-12-06] MEDS: VANCOMYCIN HCL 500 MG in D5W MINI-BAG PLUS 100 ML IV SCH (03:40)
[2018-12-06 06:00] VITALS: BP 120/85
[2018-12-06] MEDS: CEPHALEXIN 500 MG CAP PO SCH ×3 (06:00→21:20)
[2018-12-06 07:02] LABS: HEMATOCRIT 31.8 % (42.0-52.0); HEMOGLOBIN 9.9 g/dl (13.5-17.5); MEAN CORPUSCULAR HEMOGLOBIN 26.7 pg (27.0-33.0); MEAN CORPUSCULAR HGB CONC 31.1 g/dl (32.0-36.5); MEAN CORPUSCULAR VOLUME 85.7 fl (80.0-96.0); PLATELET COUNT, AUTOMATED 257 10^3/uL (150-450); RED BLOOD COUNT 3.71 10^6/uL (4.30-6.10); WHITE BLOOD COUNT 16.2 10^3/uL (4.0-10.0)
[2018-12-06] MEDS: FOLIC ACID 1 MG TAB PO SCH (08:28)
[2018-12-06] MEDS: FUROSEMIDE 20 MG TAB PO SCH (08:28)
[2018-12-06] MEDS: DOCUSATE SODIUM 100 MG CAP PO SCH ×2 (08:28→20:22)
[2018-12-06] MEDS: MULTIVITAMINS/MINERALS THERAP 1 TAB PO SCH (08:28)
[2018-12-06] MEDS: BISOPROLOL FUMARATE 10 MG TAB PO SCH (08:29)
[2018-12-06] MEDS: LINEZOLID 600MG TABLET (ZYVOX) PO SCH ×2 (08:30→20:22)
[2018-12-06 14:00] VITALS: BP 108/75
--- NOTE | 2018-12-06 14:58 | IPNPDOC ---
Text Note Date of Service The patient was seen on 12/06/18. NOTE S: Patient remains afebrile. states walked 6 laps [address] hospital nursing st ation yesterday and increased ankle swelling after aggressive ambulation (using walker). He is declining walker use for home. He is being seen for cellulitis of right leg. US negative for DVT. O: Vitals as below General: pleasant NAD AAOx3 Heart - irreg/irreg no murmur LCTA Ext: left leg no erythema,calor, or rubor. mild ankle edema (chronic); Right leg with rubor but no calor, decreasing in erythema compared to yesterday; right ankle edema. A/P: (1) Cellulitis of right lower extremity (vs vasculitis) WBC increased today, despite improving leg clinically. Will change IV Vanc to po zyvox and add back keflex. Repeat CBC at 1600 and if improved, possible d/c tomorrow on orals, if not, consider ID consult and start IV steroids for possible underlying vasculitis. (2) Afib Status: Chronic Problem Text: Continue beta blockers and anticoagulation Rate is under well control (3) Adenocarcinoma of right lung, stage 4 Status: Chronic Problem Text: On chemotherapy, next scheduled chemo treatment second week in December 11. elevated uric acid without signs of gout. Discussed with patient s/s of gout and prevention/treatment. he will follow up with PCP to discuss treatment VS,Fishbone, I+O VS, Fishbone, I+O Laboratory Tests 12/06/18 06:37 Red Blood Count 3.71 L, Mean Corpuscular Volume 85.7, Mean Corpuscular Hemoglobin 26.7 L, Mean Corpuscular Hemoglobin Concent 31.1 L, Red Cell Distribution Width 18.8 H Vital Signs Date Time Temp Pulse Resp B/P (MAP) Pulse Ox O2 Delivery O2 Flow Rate FiO2 12/06/18 06:00 97.5 86 18 120/85 (97) 93 11/30/18 21:17 Room Air I&O- Last 24 Hours up to 6 AM 12/06/18 06:00 Intake Total 1610 ml Output Total 1970 ml Balance -360 ml MAXINE COLLINS DO Dec 06, 2018 07:36
[2018-12-06 16:44] LABS: HEMATOCRIT 32.2 % (42.0-52.0); HEMOGLOBIN 10.3 g/dl (13.5-17.5); MEAN CORPUSCULAR HEMOGLOBIN 27.6 pg (27.0-33.0); MEAN CORPUSCULAR VOLUME 86.3 fl (80.0-96.0); PLATELET COUNT, AUTOMATED 305 10^3/uL (150-450); RED BLOOD COUNT 3.73 10^6/uL (4.30-6.10)
[2018-12-06 17:05] LABS: BLOOD UREA NITROGEN 16 MG/DL (7-18); C REACTIVE PROTEIN QUANTITATIV 6.27 MG/DL (0.00-0.30); CALCIUM LEVEL 8.3 MG/DL (8.8-10.2); CARBON DIOXIDE LEVEL 30 MEQ/L (21-32); CHLORIDE LEVEL 104 MEQ/L (98-107); CREATININE FOR GFR 0.88 MG/DL (0.70-1.30); GLOMERULAR FILTRATION RATE > 60.0 (>42); GLUCOSE, FASTING 102 MG/DL (70-100); POTASSIUM SERUM 4.3 MEQ/L (3.5-5.1); SODIUM LEVEL 141 MEQ/L (136-145)
[2018-12-06] MEDS ORDERED: POTASSIUM CHLORIDE 10 MEQ SR TABLET PO ONE (18:30)
[2018-12-06] MEDS ORDERED: FUROSEMIDE 40 MG/4 ML VIAL (J1940) IV ONE (18:30)
[2018-12-06 18:42] LABS: ERYTHROCYTE SEDIMENTATION RATE 106 mm/hr (0-20)
[2018-12-06] MEDS: FEBUXOSTAT 40 MG TABLET (ULORIC) PO SCH (18:56)
[2018-12-06] MEDS: RIVAROXABAN 20 MG TAB (XARELTO) PO SCH (20:22)
[2018-12-06] MEDS: COLCHICINE 0.6 MG TAB PO SCH (20:22)
[2018-12-06 22:00] VITALS: BP 130/73
[2018-12-07 06:00] VITALS: BP 115/70
[2018-12-07] MEDS: CEPHALEXIN 500 MG CAP PO SCH ×3 (06:02→21:05)
[2018-12-07] MEDS: FEBUXOSTAT 40 MG TABLET (ULORIC) PO SCH (08:40)
[2018-12-07] MEDS: MULTIVITAMINS/MINERALS THERAP 1 TAB PO SCH (08:40)
[2018-12-07] MEDS: BISOPROLOL FUMARATE 10 MG TAB PO SCH (08:40)
[2018-12-07] MEDS: LINEZOLID 600MG TABLET (ZYVOX) PO SCH ×2 (08:40→21:05)
[2018-12-07] MEDS: DOCUSATE SODIUM 100 MG CAP PO SCH ×2 (08:40→21:05)
[2018-12-07] MEDS: FOLIC ACID 1 MG TAB PO SCH (08:41)
[2018-12-07] MEDS: COLCHICINE 0.6 MG TAB PO SCH ×2 (08:41→21:05)
--- NOTE | 2018-12-07 10:03 | REP ---
Clinical: Left lower extremity pain and swelling . Technique: Gordon scale and color Doppler evaluation using linear high frequency transducer. Findings: Ultrasound examination of the left lower extremity deep venous structures from the common femoral vein to the popliteal vein demonstrates normal compressibility flow and wave patterns in response to respiration and augmentation. There is no evidence for deep venous thrombosis. Impression: No evidence for deep venous thrombosis. Electronically Signed by Mac Perkins MD 12/07/2018 09:54 A
[2018-12-07 10:51] LABS: HEMATOCRIT 37.5 % (42.0-52.0); HEMOGLOBIN 11.9 g/dl (13.5-17.5); MEAN CORPUSCULAR HGB CONC 31.7 g/dl (32.0-36.5); PLATELET COUNT, AUTOMATED 388 10^3/uL (150-450); RED BLOOD COUNT 4.41 10^6/uL (4.30-6.10); WHITE BLOOD COUNT 16.4 10^3/uL (4.0-10.0)
[2018-12-07 11:26] LABS: BLOOD UREA NITROGEN 18 MG/DL (7-18); C REACTIVE PROTEIN QUANTITATIV 7.46 MG/DL (0.00-0.30); CALCIUM LEVEL 8.6 MG/DL (8.8-10.2); CARBON DIOXIDE LEVEL 26 MEQ/L (21-32); CHLORIDE LEVEL 103 MEQ/L (98-107); CREATININE FOR GFR 0.99 MG/DL (0.70-1.30); GLOMERULAR FILTRATION RATE > 60.0 (>42); GLUCOSE, FASTING 184 MG/DL (70-100); POTASSIUM SERUM 4.6 MEQ/L (3.5-5.1); SODIUM LEVEL 138 MEQ/L (136-145); URIC ACID 6.5 MG/DL (3.5-7.2)
--- NOTE | 2018-12-07 12:55 | IPNPDOC ---
Text Note Date of Service The patient was seen on 12/07/18. NOTE S: patient lost IV access last night. He states left leg/calf pain. lower e xtremity edema /swelling has resolved with IV lasix. He states no itching but noticed left leg redness along lateral sides and calf. O: Vitals as below General: pleasant NAD AAOx3 SKIN: right pretibial erythema - not hot to touch, wrinkles present; left lateral and medial faint erythema but no discharge/drainage or bubble lesions. Ext: right chronic ankle edema (per patient); minimal right lower extremity edema. left leg - no leg edema or minimal chronic ankle edema. Ropy/tender along left calf calf. rubor without calor located along left lateral tibia and medial tibial . no raised lesions A/P: (1) Cellulitis of right lower extremity (vs vasculitis) WBC increased today, despite improving leg clinically. Clinically improved. continue with zyvox and keflex. (2) Afib Status: Chronic Problem Text: Continue beta blockers and anticoagulation Rate is under well control (3) Adenocarcinoma of right lung, stage 4 Status: Chronic Problem Text: On chemotherapy, next scheduled chemo treatment second week in December 11. leg and ankle edema with elevated uric acid without signs of gout. - improving uric acid with treatment, including prednisone, colchicine and uloric. (started because of IV lasix and elevated uric acid). Consider additional dose of IV lasix tomorrow if not showing continued improvement. Patient iV access f eel out today per staff. for now leave IV access out. VS,Fishbone, I+O VS, Fishbone, I+O Laboratory Tests 12/06/18 16:02 Red Blood Count 3.73 L, Mean Corpuscular Volume 86.3, Mean Corpuscular Hemoglobin 27.6, Mean Corpuscular Hemoglobin Concent 32.0, Red Cell Distribution Width 18.7 H, Calcium Level 8.3 L 12/07/18 10:42 Red Blood Count 4.41, Mean Corpuscular Volume 85.0, Mean Corpuscular Hemoglobin 27.0, Mean Corpuscular Hemoglobin Concent 31.7 L, Red Cell Distribution Width 18.8 H, Calcium Level 8.6 L Vital Signs Date Time Temp Pulse Resp B/P (MAP) Pulse Ox O2 Delivery O2 Flow Rate FiO2 8/31/19 08:40 98 115/70 12/07/18 06:00 97.1 18 97 I&O- Last 24 Hours up to 6 AM 12/07/18 06:00 Intake Total 1640 ml Output Total 3625 ml Balance -1985 ml MAXINE COLLINS DO Dec 07, 2018 12:55
[2018-12-07] MEDS ORDERED: predniSONE 20 MG TAB PO ONE (13:00)
[2018-12-07 14:00] VITALS: BP 113/70
[2018-12-07] MEDS: RIVAROXABAN 20 MG TAB (XARELTO) PO SCH (21:05)
[2018-12-07 22:00] VITALS: BP 126/79
[2018-12-08] MEDS: CEPHALEXIN 500 MG CAP PO SCH ×3 (05:51→21:05)
[2018-12-08 06:00] VITALS: BP 108/65
[2018-12-08] MEDS: BISOPROLOL FUMARATE 10 MG TAB PO SCH (09:00)
[2018-12-08] MEDS: LINEZOLID 600MG TABLET (ZYVOX) PO SCH ×2 (09:09→21:05)
[2018-12-08] MEDS: FEBUXOSTAT 40 MG TABLET (ULORIC) PO SCH ×2 (09:09→09:24)
[2018-12-08] MEDS: COLCHICINE 0.6 MG TAB PO SCH ×2 (09:09→21:04)
[2018-12-08] MEDS: DOCUSATE SODIUM 100 MG CAP PO SCH ×3 (09:09→21:04)
[2018-12-08] MEDS: MULTIVITAMINS/MINERALS THERAP 1 TAB PO SCH (09:10)
[2018-12-08] MEDS: FOLIC ACID 1 MG TAB PO SCH (09:10)
--- NOTE | 2018-12-08 12:16 | IPNPDOC ---
Text Note Date of Service The patient was seen on 12/08/18. NOTE S: patient feels better today. ambulating in halls. states no leg pain and redness swelling improved. no fever O: Vitals as below General:pleasant NAD AAOx3 HRRR LCTA Ext: right pretib with erythema (less), no calor and minimal edema/swelling to bilateral ankles; no erythema to left leg A/P: (1) Cellulitis of right lower extremity (vs vasculitis) improving leg clinically. Clinically improved. continue with zyvox and keflex and prednisone taper (2) Afib Status: Chronic Problem Text: Continue beta blockers and anticoagulation Rate is under well control (3) Adenocarcinoma of right lung, stage 4 Status: Chronic Problem Text: On chemotherapy, next scheduled chemo treatment second week in December 11. 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 - improving uric acid with treatment, including prednisone, colchicine and uloric. (started becau se of IV lasix and elevated uric acid). pateint is NOT on lasix at home. D/C lasix. D/C uloric. continue prednisone taper and colchicine Disposition. anticipate d/c tomorrow VS,Fishbone, I+O VS, Fishbone, I+O Vital Signs Date Time Temp Pulse Resp B/P (MAP) Pulse Ox O2 Delivery O2 Flow Rate FiO2 12/08/18 09:00 94 107/66 12/08/18 06:00 98.2 17 98 I&O- Last 24 Hours up to 6 AM 12/08/18 06:00 Intake Total 2280 ml Output Total 1500 ml Balance 780 ml MAXINE COLLINS DO Dec 08, 2018 12:16
[2018-12-08] MEDS ORDERED: predniSONE 20 MG TAB PO ONE (13:00)
[2018-12-08 14:00] VITALS: BP 111/64
[2018-12-08] MEDS: RIVAROXABAN 20 MG TAB (XARELTO) PO SCH (21:04)
[2018-12-08 22:00] VITALS: BP 122/74
[2018-12-09 06:00] VITALS: BP 104/73
[2018-12-09] MEDS: CEPHALEXIN 500 MG CAP PO SCH (06:37)
[2018-12-09 07:10] LABS: HEMATOCRIT 33.2 % (42.0-52.0); HEMOGLOBIN 10.5 g/dl (13.5-17.5); MEAN CORPUSCULAR HEMOGLOBIN 27.9 pg (27.0-33.0); MEAN CORPUSCULAR HGB CONC 31.6 g/dl (32.0-36.5); MEAN CORPUSCULAR VOLUME 88.1 fl (80.0-96.0); PLATELET COUNT, AUTOMATED 389 10^3/uL (150-450); RED BLOOD COUNT 3.77 10^6/uL (4.30-6.10); WHITE BLOOD COUNT 22.1 10^3/uL (4.0-10.0)
[2018-12-09 07:38] LABS: BLOOD UREA NITROGEN 21 MG/DL (7-18); C REACTIVE PROTEIN QUANTITATIV 3.62 MG/DL (0.00-0.30); CALCIUM LEVEL 9.1 MG/DL (8.8-10.2); CARBON DIOXIDE LEVEL 31 MEQ/L (21-32); CHLORIDE LEVEL 108 MEQ/L (98-107); CREATININE FOR GFR 0.88 MG/DL (0.70-1.30); GLOMERULAR FILTRATION RATE > 60.0 (>42); GLUCOSE, FASTING 100 MG/DL (70-100); POTASSIUM SERUM 4.7 MEQ/L (3.5-5.1); SODIUM LEVEL 141 MEQ/L (136-145); URIC ACID 5.2 MG/DL (3.5-7.2)
[2018-12-09] MEDS ORDERED: PRED20TA PO (07:51)
[2018-12-09] MEDS ORDERED: COLC1TAB13 PO (07:51)
[2018-12-09 08:09] LABS: ERYTHROCYTE SEDIMENTATION RATE > 140 mm/hr (0-20)
[2018-12-09] MEDS ORDERED: predniSONE 20 MG TAB PO SCH (09:00)
[2018-12-09] MEDS: MULTIVITAMINS/MINERALS THERAP 1 TAB PO SCH (09:16)
[2018-12-09] MEDS: LINEZOLID 600MG TABLET (ZYVOX) PO SCH (09:16)
[2018-12-09] MEDS: DOCUSATE SODIUM 100 MG CAP PO SCH (09:16)
[2018-12-09 09:17] VITALS: BP 104/73
[2018-12-09] MEDS: COLCHICINE 0.6 MG TAB PO SCH (09:17)
[2018-12-09] MEDS: BISOPROLOL FUMARATE 10 MG TAB PO SCH (09:17)
[2018-12-09] MEDS: FOLIC ACID 1 MG TAB PO SCH (09:17)
--- NOTE | 2018-12-09 14:10 | DS.PDOC ---
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 COMPLICATIONS/CHIEF COMPLAINT: Cellulitis Of Right Lower Extremity. HISTORY OF PRESENT ILLNESS:73 yo male with hx of afib and lung ca on chemo who presented to the ed for worsening right leg cellulitis despite being on po abx. Patient noticed right leg swelling, erythema and pain since Sunday and went to his pmd who sent him to do a venous doppler who was negative . He noticed that the swelling continued to worsened so he went back on and was started on keflex,; however the swelling continued despite being on abx, so he came in. He denied fever , chills, chest pain, sob, nausea or vomiting. See H&P for d etails HOSPITAL COURSE: - patient admitted and started on IV ceftaroline. There was worsening of erythema and changed from ceftaroline to IV Vancomycin on day 2. Leg continued to improve, as did WBC until day 6 when it appeared to worsen with swelling and rubor. He had also walked 6 laps around the hospital floor 1 days prior to worsening episode. Uric acid obtained and was elevated but xray did not suggest Gout; XRAY US did not show signs of DVT. Patient edema worsen, given 1 dose IV lasix with improvement. 12/07 Started on steroids (lasix stopped) with dramatical improvement to color and edema. CRP and uric acid dropped with initiation of cochicine and prednisone. It was felt this may also represent a cellulitis with vasculitis. Patient requested return home instead of going to another facility for care. DISCHARGE MEDICATIONS: Please see below. ALLERGIES: Please see below. PHYSICAL EXAMINATION ON DISCHARGE: VITAL SIGNS: Please see below. General:pleasant NAD AAOx3 HRRR LCTA Ext: right pretib with erythema (less), no calor and minimal edema/swelling to bilateral ankles; increased right venous stasis changes; no erythema to left leg LABORATORY DATA: Please see below. IMAGING: US of right and left lower leg negative for DVT; XRAY right leg with soft tissue edema, no osteomyelitis; Xray right foot/ankle with no fracture, no gouty joint changes PROGNOSIS: good ACTIVITY: as tolerated. minimal activity for 2 days then slowly resume normal active at 1/2 rep on stationary bike until cellulitis resolved DIET: as tolerated DISCHARGE PLAN: home DISCHARGE INSTRUCTIONS: 1. follow up with PCP in 5-7 days for recheck of cellulitis and labs 2. repeat CBC ,uric acid, CRP in 1week 3. keep chemotherapy appointment as previously scheduled 4. Keep appointment with Dr Santos as previously scheduled ITEMS TO FOLLOWUP ON ON OUTPATIENT: 1. cbc,uric acid,CRP in 1 week DISCHARGE CONDITION: stable and improved TIME SPENT ON DISCHARGE: 30 minutes. Vital Signs/I&Os Vital Signs Date Time Temp Pulse Resp B/P (MAP) Pulse Ox O2 Delivery O2 Flow Rate FiO2 12/09/18 06:00 97.5 93 18 104/73 (83) 93 I&O- Last 24 Hours up to 6 AM 12/09/18 06:00 Intake Total 2880 ml Output Total 900 ml Balance 1980 ml Laboratory Data Labs 24H Laboratory Tests 2 12/09/18 07:00: Nucleated Red Blood Cells % (auto) 0.0, Anion Gap 2L, Glomerular Filtration Rate > 60.0, Uric Acid 5.2, Blood Urea Nitrogen 21H, Creatinine 0.88, Sodium Level 141, Potassium Level 4.7, Chloride Level 108H, Carbon Dioxide Level 31, Calcium Level 9.1, C-Reactive Protein, Quantitative 3.62H CBC/BMP Laboratory Tests 12/09/18 07:00 Red Blood Count 3.77 L, Mean Corpuscular Volume 88.1, Mean Corpuscular Hemoglobin 27.9, Mean Corpuscular Hemoglobin Concent 31.6 L, Red Cell Distribution Width 18.2 H, Calcium Level 9.1 Microbiology Microbiology 11/30/18 Blood Culture - Final, Complete NO GROWTH AFTER 5 DAYS 11/30/18 Blood Culture - Final, Complete NO GROWTH AFTER 5 DAYS Discharge Medications Scheduled Bifidobacterium Infantis (Align) 4 Mg Cap, 4 MG PO DAILY, (Reported) Bisoprolol Fumarate (Bisoprolol Fumarate) 10 Mg Tab, 10 MG PO DAILY, (Reported) Cephalexin (Cephalexin) 500 Mg Capsule, 500 MG PO QID, (Reported) STARTED 11/28/2018 Colchicine (Colchicine) 0.6 Mg Tablet, 0.6 MG PO BID Folic Acid (Folic Acid) 1 Mg Tablet, 1 MG PO DAILY, (Reported) Linezolid (Linezolid) 600 Mg Tablet, 1 TAB PO BID Multivitamins (Thera M Plus Tablet) 1 Tab Tab, 1 TAB PO DAILY, (Reported) Prednisone (Prednisone) 20 Mg Tablet, 20 MG PO ASDIRECTED 40mg for 4days,[id number] and stop Rivaroxaban (Xarelto) 20 Mg Tab, 20 MG PO QHS, (Reported) Umeclidinium Brm/Vilanterol Tr (Anoro Ellipta 62.5-25 Mcg INH) 1 Aer Aer, 1 PUFF INH DAILY, (Reported) Allergies Coded Allergies: No Known Allergies (Unverified , 04/23/18) MAXINE COLLINS DO Dec 09, 2018 07:54
== END 2018-12-09 10:35 | disposition home or self-care (01) | DRG 603 ==
LOC: M ED 17:51 → M ED INP 21:15 → M MS5PR 22:00
PROVIDERS: ADMIT Internal Medicine; ATTEND Family Medicine
DX: L03.115 Cellulitis of right lower limb (principal); C34.91 Malignant neoplasm of unspecified part of right bronchus or lung; I48.91 Unspecified atrial fibrillation; L95.9 Vasculitis limited to the skin, unspecified; Z79.899 Other long term (current) drug therapy; Z96.641 Presence of right artificial hip joint; Z96.642 Presence of left artificial hip joint; Z96.652 Presence of left artificial knee joint; Z87.891 Personal history of nicotine dependence

== ENCOUNTER → 2018-12-12 | Outpatient (REF) | payer MEDICARE, OTHER ==
[~2018-12-12] MED LIST changes: -BISO10TA10 PO; +BISO10TA14 PO; +CEPH500C PO; +DIGO0.123 PO; +FURO20TA2 PO; +FURO40TA2 PO; +LINE1TAB6 PO; +OMEP10CASR PO; +PRED20TA PO; +PRED50TA PO; +TREL1AER IN; +TREL1AER PO
[2018-12-12 14:24] LABS: C REACTIVE PROTEIN QUANTITATIV 1.16 MG/DL (0.00-0.30); URIC ACID 5.6 MG/DL (3.5-7.2)
== END ==
LOC: M LAB REF 13:27
PROVIDERS: ATTEND Internal Medicine
DX: L03.115 Cellulitis of right lower limb (principal); M10.9 Gout, unspecified

== ENCOUNTER → 2018-12-19 | Outpatient (REF) | payer MEDICARE, OTHER ==
[~2018-12-19] MED LIST changes: +BISO10TA10 PO; -BISO10TA14 PO; -DIGO0.123 PO; -FURO40TA2 PO; -OMEP10CASR PO; -PRED50TA PO; -TREL1AER IN; -TREL1AER PO
== END ==
LOC: M LAB REF 12:10
PROVIDERS: ATTEND Internal Medicine
DX: M10.9 Gout, unspecified (principal)

== ENCOUNTER → 2019-01-23 | Outpatient (REF) | payer MEDICARE, OTHER ==
[2019-01-23 17:45] LABS: C REACTIVE PROTEIN QUANTITATIV 7.1 MG/DL (0.00-0.30); URIC ACID 9.5 MG/DL (3.5-7.2)
== END ==
LOC: M LAB REF 16:43
PROVIDERS: ATTEND Internal Medicine
DX: M10.9 Gout, unspecified (principal); R79.82 Elevated C-reactive protein (CRP)

== ENCOUNTER → 2019-01-24 | Outpatient (CLI) | payer MEDICARE, OTHER ==
[~2019-01-24] MED LIST changes: +FURO40TA2 PO; +GASTROGRAFIN SOLUTION 30ML (Q9963) As Ordered ONE; +ISOVUE-370 76% 100ML VIAL (Q9967) As Ordered ONE
--- NOTE | 2019-01-24 16:19 | REP ---
CT chest with IV contrast: History: Restaging non-small cell lung carcinoma. Status post chemo and immuno therapy. Comparison chest CT study October 02, 2018. CT contrast dose: 100 mL of intravenous Isovue 370. CT findings: In the interval since the prior exam, the right-sided Pleurx catheter has been withdrawn. There is pleural thickening and a small quantity of pleural fluid again noted in the right lung base. The amount of pleural fluid is decreased compared to the prior study. The visceral and parietal pleural thickening are somewhat decreased as well. The septal thickening and interstitial pattern in the right base noted previously is again seen although this appears improved. Previously noted small peribronchovascular nodules in the right lower lobe posteriorly are no longer apparent. There is a tiny 4 mm noncalcified nodule in the right upper lobe on page 43 of 115 in series 2 of 4 on today study which is unchanged. No new pulmonary nodule is seen. No hilar or mediastinal mass or adenopathy is observed. Cardiac enlargement is seen, all four chambers. No adrenal lesion is observed. Impression: Improved interstitial disease right lung base. Improved nodules right lower lobe. Stable right upper lobe 4 mm nodule. Improved pleural changes right base. Pleurx catheter has been withdrawn. A small amount of residual right pleural fluid and visceral and parietal pleural thickening are seen. Electronically Signed by Angelito Mota MD 01/24/2019 07:48 P
--- NOTE | 2019-01-24 17:11 | REP ---
CT abdomen and pelvis with IV and oral contrast: History: Restaging non-small cell lung carcinoma. Comparison CT study October 02, 2018. CT contrast dose: 100 ml of intravenous Isovue [address] findings: Pleuroparenchymal changes are noted at the right base. No hepatic or splenic mass lesion is seen. No adrenal lesion is observed. The pancreas remains unremarkable. No abnormalities noted in the gallbladder. Small and large intestinal bowel loops are normal in the upper abdomen. No retroperitoneal mass or adenopathy is seen. Kidneys enhance symmetrically and are morphologically intact. Surgical changes are noted in the inguinal soft tissues. There is a left colon anastomosis. Urinary bladder is unremarkable. There is spray artifact across the mid pelvis from bilateral hip prostheses. Impression: No evidence of intra-abdominal metastasis or adenopathy. Electronically Signed by Angelito Mota MD 01/24/2019 07:50 P
== END ==
LOC: M RAD 11:30
PROVIDERS: ATTEND Internal Medicine Medical Oncology
DX: C34.91 Malignant neoplasm of unspecified part of right bronchus or lung (principal)
CPT/HCPCS: 71260; 74177; Q9963; Q9967

== ENCOUNTER → 2019-01-30 | Outpatient (REF) | payer MEDICARE, OTHER ==
[~2019-01-30] MED LIST changes: -GASTROGRAFIN SOLUTION 30ML (Q9963) As Ordered ONE; -ISOVUE-370 76% 100ML VIAL (Q9967) As Ordered ONE
== END ==
LOC: M LAB REF 17:28
PROVIDERS: ATTEND Internal Medicine
DX: M10.9 Gout, unspecified (principal)

== ENCOUNTER → 2019-02-04 | Outpatient (REF) | payer MEDICARE, OTHER | LOC: M LAB REF 18:39 | PROVIDERS: ATTEND Surgery | DX: M79.605 Pain in left leg (principal); L53.9 Erythematous condition, unspecified; I87.2 Venous insufficiency (chronic) (peripheral) ==

== ENCOUNTER → 2019-02-26 | Outpatient (REF) | payer MEDICARE, OTHER | LOC: M LAB REF 12:09 | PROVIDERS: ATTEND Internal Medicine | DX: L03.115 Cellulitis of right lower limb (principal) ==

== ENCOUNTER → 2019-03-18 | Outpatient (CLI) | payer MEDICARE, OTHER ==
[~2019-03-18] MED LIST changes: +TREL1AER IN; +TREL1AER PO
--- NOTE | 2019-03-18 17:16 | REP ---
Chest x-ray: Two views. History: Short of breath. History of non-small cell lung carcinoma. Comparison chest x-ray: October 21, 2018. Findings: Moderate cardiac enlargement is again noted unchanged. There is blunting of the right lateral pleural angle and parenchymal opacity is seen in the right base consistent with an infiltrate. The infiltrate is somewhat improved when compared with the October 21, 2018 study. No new infiltrate is appreciated. The pleural thickening is similar. There is some fissural thickening on the lateral radiograph. There are advanced degenerative arthropathy changes in the shoulders bilaterally. Impression: Chronic pleural thickening and blunting of the right lateral pleural angle. Improved chronic infiltrate right base. Cardiomegaly unchanged. Electronically Signed by Angelito Mota MD 03/18/2019 05:22 P
== END ==
LOC: M RAD 15:14
PROVIDERS: ATTEND Physician Assistant
DX: I51.7 Cardiomegaly (principal); R06.02 Shortness of breath; J91.0 Malignant pleural effusion; C34.11 Malignant neoplasm of upper lobe, right bronchus or lung

== ENCOUNTER → 2019-03-21 | Outpatient (CLI) | payer MEDICARE, OTHER ==
[~2019-03-21] MED LIST changes: +GASTROGRAFIN SOLUTION 30ML (Q9963) As Ordered ONE; +ISOVUE-370 76% 100ML VIAL (Q9967) As Ordered ONE
--- NOTE | 2019-03-21 18:42 | REP ---
CT chest with IV contrast: History: Non-small cell carcinoma of the lung. Comparison is made with prior chest CT studies from January 24, 2019 and October 02, 2018. CT contrast dose: 100 ml of intravenous Isovue [address] findings: There are advanced arthropathy changes at the shoulders bilaterally. No bony destructive lesion is seen. No hilar or mediastinal mass or adenopathy is observed. There is a stable superior mediastinal lymph node just below the thoracic inlet measuring 1.1 cm in short axis dimension. There is a minimal amount of pleural fluid and pleural thickening in the right base similar to the most recent prior study of January 24, 2019. No progressive pleural effusion is seen. There is increased interstitial disease in the right lower lobe and to a lesser extent right middle lobe. This was seen previously. It was felt to have improved on January 24, 2019. These changes appear slightly more prominent today than on the most recent prior study. There are is very small sub 5 mm nodules as follows: Left lower lobe on page 55 of 115 in series 204 of today's study, pleural plaque anteriorly in the right upper lobe on page 53, stable nodule right upper lobe anteriorly page 44, and stable tiny nodule right upper lobe page 30. These are all unchanged from an 01/24/2019, except for the right upper lobe nodule seen on page 30 of today's study which I cannot see in retrospect on the prior study No adrenal lesion is seen. Impression: Interstitial markings increased diffusely in the right base in the middle and lower lobes appear somewhat more prominent than the most recent prior study of January 24, 2019 question lymphangitic tumor. Tiny new nodular opacity 3 mm in size in the right lung apex. Otherwise unchanged. Electronically Signed by Angelito Mota MD 03/21/2019 08:03 P
--- NOTE | 2019-03-21 18:49 | REP ---
CT abdomen and pelvis with IV and oral contrast: History: Non-small cell lung carcinoma. Comparison CT study January 24, 2019 and October 02, 2018. CT contrast dose: 100 ml of intravenous Isovue 370. CT findings: Preliminary digital rec therapist radiograph demonstrates bilateral hip arthroplasties and bilateral inguinal surgical clips. No adrenal lesion is seen. No focal hepatic or splenic lesion is observed. No abnormalities noted in the pancreas. The gallbladder is unremarkable. There is a small parapelvic cyst in the lower pole right kidney which measures 21 mm in greatest diameter. No retroperitoneal mass or adenopathy is seen. There is a broad ventral hernia with diastases of the rectus muscles. No gastrointestinal obstructive lesion is seen. No pelvic mass or adenopathy is observed. There is spray artifact across the pelvis from the hip prosthesis sees. Urinary bladder is unremarkable. Impression: No evidence of intra-abdominal metastasis or adenopathy. Electronically Signed by Angelito Mota MD 03/21/2019 08:03 P
== END ==
LOC: M RAD 13:59
PROVIDERS: ATTEND Internal Medicine Medical Oncology
DX: R91.8 Other nonspecific abnormal finding of lung field (principal); C34.90 Malignant neoplasm of unspecified part of unspecified bronchus or lung
CPT/HCPCS: 71260; 74177; Q9963; Q9967

== ENCOUNTER → 2019-03-27 | Outpatient (CLI) | payer MEDICARE, OTHER ==
[~2019-03-27] MED LIST changes: +DIGO0.123 PO; -GASTROGRAFIN SOLUTION 30ML (Q9963) As Ordered ONE; +OMEP10CASR PO; +PRED50TA PO
--- NOTE | 2019-03-28 10:49 | REP ---
CT ANGIOGRAM CHEST: TECHNIQUE: Axial contrast enhanced images from the thoracic inlet to the upper abdomen using 100 mL Isovue 370 intravenous contrast material with multiplanar reformations. COMPARISON: 03/21/2019. New diffuse interstitial and alveolar infiltrates are seen bilaterally. There are small effusions. There is cardiomegaly. The findings are most consistent with CHF and pulmonary edema. A few subcentimeter mediastinal lymph nodes are present. There is no pericardial effusion. No pulmonary embolism is seen. There is no thoracic aorta aneurysm or dissection. There are degenerative changes of the spine. IMPRESSION: No evidence of pulmonary embolism. Cardiomegaly with diffuse bilateral interstitial and alveolar infiltrates with small effusions. I suspect this represents CHF and pulmonary edema. Electronically Signed by Bishop Gordon MD 03/28/2019 04:46 P
== END ==
LOC: M RAD 15:55
PROVIDERS: ATTEND Internal Medicine Medical Oncology
DX: R09.02 Hypoxemia (principal); R06.02 Shortness of breath; I51.7 Cardiomegaly; C34.91 Malignant neoplasm of unspecified part of right bronchus or lung

== ENCOUNTER → 2019-03-28 | Outpatient (CLI) | payer MEDICARE, OTHER ==
[~2019-03-28] MED LIST changes: -ISOVUE-370 76% 100ML VIAL (Q9967) As Ordered ONE
--- NOTE | 2019-03-30 08:18 | ECHO ---
DATE OF PROCEDURE: 03/28/2019 DATE OF : 1945 AGE: 73 GENDER: Male HEIGHT: 69 inches WEIGHT: 249 pounds BODY SURFACE AREA: 2.27 m2 OUTPATIENT REFERRING PHYSICIAN: Dr. Martine Santos INDICATION: Cardiomegaly. MEASUREMENTS 2-D measurements: RV: 4.2 cm LV: 5.5 cm Septum: 1.1 cm Posterior wall: 1.1 cm Aortic root: 3.5 cm LA: 4.5 cm LVEF: 60-65% Doppler Measurements: AV: 1.0 m/s LVOT: 0.8 m/s LVOT diameter: 2.0 cm MV - E 80 Early mitral deceleration time: 232 ms E prime medial: 12 E prime lateral: 12 Average E/E prime ratio: 6.7/PWCP 12 PV: 0.6 m/s Pulmonary artery acceleration time: 106 ms RVSP: 44 mmHg IVC: 2.0 cm COMMENTS: Underlying atrial fibrillation with controlled ventricular response. M-mode and two-dimensional echocardiography was performed with pulsed, continuous wave, color flow and tissue Doppler studies. Left ventricular size upper limits of normal with normal LV wall thickness and wall motion. Moderately dilated left atrium with current estimated mean left atrial pressure upper limits of normal. Mildly dilated right ventricle with normal wall motion and moderate pulmonary hypertension. At least mild to moderately dilated right atrium with normal IVC size, but reduced respiratory collapse in keeping with an elevated central venous pressure. Aortic valvular sclerosis without stenosis and only trace insufficiency. Normal aortic diameters. Mildly thickened mitral annulus, but normal leaflet thickness and excursion with no posterior systolic buckling and very mild insufficiency. Normal appearing tricuspid valve with at least mild insufficiency. No apparent intracardiac mass or pericardial effusion.
== END ==
LOC: M CARPUL 12:17
PROVIDERS: ATTEND Internal Medicine Medical Oncology
DX: I51.7 Cardiomegaly (principal)

== ENCOUNTER → 2019-03-31 | Outpatient (REF) | payer MEDICARE, OTHER ==
[2019-03-31 10:22] LABS: BLOOD UREA NITROGEN 28 MG/DL (7-18); CALCIUM LEVEL 8.8 MG/DL (8.8-10.2); CARBON DIOXIDE LEVEL 28 MEQ/L (21-32); CHLORIDE LEVEL 103 MEQ/L (98-107); GLOMERULAR FILTRATION RATE > 60.0 (>42); GLUCOSE, FASTING 107 MG/DL (70-100); NT-PRO BNP 1811 PG/ML (<125); POTASSIUM SERUM 4.2 MEQ/L (3.5-5.1); SODIUM LEVEL 141 MEQ/L (136-145)
== END ==
LOC: M LAB REF 09:23
PROVIDERS: ATTEND Nurse Practitioner Adult Health
DX: R06.00 Dyspnea, unspecified (principal); I48.20 Chronic atrial fibrillation, unspecified; I50.9 Heart failure, unspecified

== ENCOUNTER → 2019-05-01 | Outpatient (REF) | payer MEDICARE, OTHER ==
[~2019-05-01] MED LIST changes: -BISO10TA10 PO; +BISO10TA14 PO
[2019-05-01 14:06] LABS: DIGOXIN LEVEL 0.8 NG/ML (0.5-2.0)
== END ==
LOC: M LAB REF 11:12
PROVIDERS: ATTEND Internal Medicine
DX: I48.20 Chronic atrial fibrillation, unspecified (principal); I50.9 Heart failure, unspecified

== ENCOUNTER → 2019-05-07 | Outpatient (CLI) | payer MEDICARE, OTHER ==
--- NOTE | 2019-05-07 16:49 | REP ---
Whole body PET CT scan for evaluation of 1,000,000 neoplasm of right middle lobe bronchus of the lung and malignant neoplasm of the right upper lobe bronchus of lung. Comparisons are the prior PET CT scan dated 05/21/[address] dated 03/27/2019. On the CT accompanying the PET scan today there are two nodules 4 mm in diameter each in the right upper lobe. These are not visible on the CT scan. No other lung masses or nodules are identified. There is a small left pleural effusion. The previous right pleural effusion is no longer present. There is a pericardial effusion measuring up to 16 mm depth along the right lateral margin of the heart. This was not present previously. The cardiac size is enlarged. This is unchanged. The interstitial markings in the lung bases are heavier than in the mid and upper lungs. This could represent dependent atelectasis. Whole-body scanning is performed from skull base to the upper thighs. Neck and supraclavicular areas: There are two small hypermetabolic foci posteriorly in the neck to the right of midline measuring approximate 5 mm in diameter each with a maximal standard uptake value of 5.6, likely uptake in cervical lymph nodes. This is a change from the prior study. There are no other foci in the neck or supraclavicular areas. Chest: The previously identified uptake in a right hilar node, right perihilar area, anterior tip of the left sixth rib and in the intercostal space of the right fifth and sixth ribs posterolaterally are no longer present. There are no other foci in the chest today. Abdomen, pelvis and upper thighs: There are no hypermetabolic foci. This is unchanged. There is diffuse mild marrow uptake in the spine, for MRI, pelvis and femurs as an interval change, likely related to marrow stimulating therapy. Impression: There are two new small foci in the neck posteriorly, likely in posterior neck lymph nodes, not present previously. The previously identified foci in the chest are no longer present. There is a pericardial effusion today as an interval change. There is cardiomegaly, unchanged. There is a small left pleural effusion as an interval change. The previous right pleural effusion is no longer present. There is diffuse skeletal uptake as an interval change, possibly related to marrow stimulating therapy. The study is performed with 8.8 mCi of F 18 FDG. Electronically Signed by Bishop Biggs MD 05/07/2019 04:39 P
== END ==
LOC: M PLARAD 11:25
PROVIDERS: ATTEND Internal Medicine Medical Oncology
DX: R93.89 Abnormal findings on diagnostic imaging of other specified body structures (principal); C34.2 Malignant neoplasm of middle lobe, bronchus or lung; C34.11 Malignant neoplasm of upper lobe, right bronchus or lung
CPT/HCPCS: 78815; A9552

== ENCOUNTER → 2019-05-15 | Outpatient (REF) | payer MEDICARE, OTHER ==
[2019-05-15 15:08] LABS: ATYPICAL LYMPH 1 % (0-5); EOSINOPHILS 2 % (0-3); LYMPHOCYTES 6 % (16-44); MONOCYTES 4 % (0-5); NEUTROPHILS 84 % (28-66); PLATELET ESTIMATE NORMAL (NORMAL)
[2019-05-15 15:09] LABS: ANISOCYTOSIS 1+; POIKILOCYTOSIS 1+; TOXIC GRANULATION 1+
== END ==
LOC: M LAB REF 13:21
PROVIDERS: ATTEND Internal Medicine
DX: D72.829 Elevated white blood cell count, unspecified (principal)

== ENCOUNTER → 2019-05-28 | Outpatient (CLI) | payer MEDICARE, OTHER ==
[~2019-05-28] MED LIST changes: +ISOVUE-370 76% 100ML VIAL (Q9967) As Ordered ONE
--- NOTE | 2019-05-28 18:01 | REPVR ---
PROCEDURE INFORMATION: Exam: CT Neck With Contrast Exam date and time: 05/28/2019 5:17 PM Age: 74 years old Clinical indication: Condition or disease; Cancer; Other: Lung; Additional info: Stage 4 lung CA, eval hypermetabolic foci pet scan TECHNIQUE: Imaging protocol: Computed tomography images of the neck with intravenous contrast. Radiation optimization: All CT scans at this facility use at least one of these dose optimization techniques: automated exposure control; mA and/or kV adjustment per patient size (includes targeted exams where dose is matched to clinical indication); or iterative reconstruction. Contrast material: ISOVUE 370; Contrast volume: 75 ml; Contrast route: IV; COMPARISON: PT PET/CT Skull/mid thigh 05/07/2019 12:46 PM FINDINGS: Sinuses: There is a 1.9 cm retention cyst in the right maxillary sinus. Mild inflammatory changes demonstrated in the left maxillary sinus. Nasopharynx: Unremarkable. Oropharynx: Unremarkable. No significant tonsillar enlargement. Hypopharynx: Unremarkable Larynx: Unremarkable. Normal epiglottis. Retropharyngeal space: Unremarkable. Submandibular/Parotid glands: Normal. Glands are normal in size. Thyroid: Normal. No enlarged or calcified nodules. Lymph nodes: There are 2 lymph nodes in the level 2 region of the neck on the right measuring 6.3 mm and 4.4 mm in maximum short axis dimension which appear to correspond to the foci demonstrated on prior PET imaging. Although these may represent reactive inflammatory lymph nodes a possibility of micro metastatic disease is not excluded. It should be noted that on the same level on the left there is a 7 mm lymph node not visualized on PET imaging. Multiple other lymph nodes measuring less than 4 mm are demonstrated in the level 2 and level 3 regions of the neck bilaterally, also not visualized on prior PET imaging. Trachea: Visualized trachea is unremarkable. Lungs/upper mediastinum: 7.5 mm lymph node in the upper right superior mediastinum not visualized on prior PET imaging. Otherwise unremarkable as visualized. Bones/joints: Degenerative spondylosis cervical spine. Otherwise unremarkable. No acute fracture. Soft tissues: Unremarkable. No significant soft tissue swelling. IMPRESSION: Bilateral level 2 and level 3 cervical chain lymphadenopathy with 2 lymph nodes on the right measuring 6.3 and 4.4 mm which correspond to the glucose avid foci on prior PET imaging. As described above these may represent inflammatory/infectious lymph nodes although relatively high SUV values is worrisome for micro metastatic disease. Continued interval follow-up is suggested. The other lymph nodes seen bilaterally were not visualized on prior PET imaging. 7.5 mm lymph node in the right superior mediastinum also not visualized on prior PET imaging. Electronically signed by: Drew Luz On 05/28/2019 18:00:58 PM
== END ==
LOC: M RAD 17:09
PROVIDERS: ATTEND Internal Medicine Medical Oncology
DX: R59.0 Localized enlarged lymph nodes (principal); C34.91 Malignant neoplasm of unspecified part of right bronchus or lung
CPT/HCPCS: 70491; Q9967

== ENCOUNTER → 2019-07-17 | Outpatient (CLI) | payer MEDICARE, OTHER ==
[~2019-07-17] MED LIST changes: +GASTROGRAFIN SOLUTION 30ML (Q9963) As Ordered ONE
--- NOTE | 2019-07-17 11:33 | REP ---
REASON: History of lung carcinoma. COMPARISON: Multiple, the latest 03/21/2019. Contrast 100 mL Isovue 370. For a description of the lung bases, see the CT chest report made the same day. The liver, gallbladder, spleen, pancreas, adrenal glands, and kidneys are unchanged. The bowel loops and their mesenteries are unchanged. The abdominal aorta and paraaortic regions are unchanged. There is no free fluid or free air. CT PELVIS: The bowel loops and their mesenteries are unchanged. There is no mass or adenopathy. There is no free fluid or free air. Bone window technique through the examination shows no significant changes from the prior exam. IMPRESSION: No significant change from 03/21/2019. No evidence of acute disease. Electronically Signed by Umberto Pichardo DO 07/17/2019 11:52 A
--- NOTE | 2019-07-17 12:17 | REP ---
REASON FOR EXAM: Carcinoma of the lung. COMPARISON: 03/27/2019 and other priors. CONTRAST: 100 mL, Isovue 370. There is an enlarged 1.7 x 2.4 cm sized right paraesophageal lymph node. There is no other mediastinal adenopathy. There is no gabriele hilar adenopathy. There is a small pericardial effusion. There is a small left pleural effusion. There is evidence of a loculated or at least partially loculated right pleural effusion. There is no significant change in the appearance of the imaged osseous structures. Evaluation of the lung allred shows improvement in the heavy interstitial markings seen on 03/27/2019, however, scattered asymmetric densities and increased interstitial markings are still present. No new focal abnormalities have developed. IMPRESSION: 1. Large right paraesophageal lymph node. 2. Pericardial effusion. 3. Bilateral pleural effusions. 4. Increased interstitial markings suggesting pulmonary edema but improved from the prior exam. 5. Other findings as described above. Electronically Signed by Umberto Pichardo DO 07/17/2019 01:40 P
== END ==
LOC: M RAD 09:29
PROVIDERS: ATTEND Internal Medicine Medical Oncology
DX: C34.91 Malignant neoplasm of unspecified part of right bronchus or lung (principal)
CPT/HCPCS: 71260; 74177; Q9963; Q9967

== ENCOUNTER → 2019-08-05 | Outpatient (CLI) | payer MEDICARE, OTHER ==
[~2019-08-05] MED LIST changes: -GASTROGRAFIN SOLUTION 30ML (Q9963) As Ordered ONE; -ISOVUE-370 76% 100ML VIAL (Q9967) As Ordered ONE
--- NOTE | 2019-08-05 15:29 | REP ---
PET/CT: HISTORY: Restaging right lung cancer. COMPARISONS: Comparison is made with prior PET/CT studies from 05/07/2019 and 05/21/2018. TECHNIQUE: 48 minutes following the intravenous injection of a 8.96 mCi dose of F-18 FDG, three-dimensional PET scintigraphy is acquired from the skull base to the proximal thighs. Triplanar noncontrast CT scanning is acquired through the same anatomic range for attenuation correction, and image registration with scan parameters optimized to minimize radiation exposure to the patient. PET scintigraphy and CT datasets were fused and displayed on a workstation with multiplanar and projection display capability. PET/CT FINDINGS: The head and neck soft tissues are unremarkable today. In the right supraclavicular region, there is a focus of increased hypermetabolic uptake consistent with a small lymph node focus. Maximum standard uptake value here is 5.43. There is a hypermetabolic lymph node focus in the right middle mediastinum superiorly just below the thoracic inlet. Maximum standard uptake value here is 5.56. This lymph node measures 0.3 x 1.7 cm. No other abnormal mediastinal asad focus is seen. There is an equivocal focus of increased uptake, maximum SUV 3.94, in the right infrahilar lower lobe region. There is interstitial disease in the right lung base with thickening of the interlobular septi. Similar changes are noted in the right middle lobe and there is some fissural thickening. There are is a somewhat diffuse pleural pattern of increased uptake at the right base. Maximum standard uptake value in this pleural opacity pattern is 5.30. There is no abnormal adrenal uptake. No abnormal hepatic or splenic uptake is seen. No abnormal uptake in the abdomen or pelvis. IMPRESSION: There is evidence suspicious for progressive disease in that there is a mediastinal asad focus of hypermetabolic uptake are present on the previous study. There is suspicious right supraclavicular asad uptake without definite adenopathy. An equivocal focus in the right infrahilar region of the lung is seen and there is evidence of diffuse pleuroparenchymal uptake in the right base question pleural versus lymphangitic disease. No gabriele pleural effusion is noted however. Electronically Signed by Angelito Mota MD 08/05/2019 05:09 P
== END ==
LOC: M PLARAD 10:32
PROVIDERS: ATTEND Internal Medicine Medical Oncology
DX: C34.81 Malignant neoplasm of overlapping sites of right bronchus and lung (principal)
CPT/HCPCS: 78815; A9552

== ENCOUNTER → 2019-09-16 | Outpatient (POV) | payer MEDICARE, OTHER ==
[~2019-09-16] MED LIST changes: +DEXA4TA PO; +LIDO2.5C15 TOP; +MM S100C PO; +ONDA8TAB10 PO
--- NOTE | 2019-09-18 12:19 | IRPN ---
[facility] IR Progress Note IR Progress Note DATE: Sep 16, 2019 Consent was given by patient for this telephone call. Length of call was 5 minutes. FOLLOW-UP: Patient doing well status post port placement. States no pain, swelling or discharge. No fevers or chills. Port used without any issues. ON EXAMINATION: I reviewed the pictures the patient sent of the port site. Port site appears to be healing well. No swelling or discharge. IMPRESSION: Doing well status post port placement. No further follow-up sched uled unless initiated by patient and/or referring provider. Thank you for this referral Allergies Coded Allergies: No Known Allergies (Unverified , 04/23/18) ADOLFO WOLFF MD Sep 18, 2019 12:19
== END ==
LOC: M IRPOV 09:37
PROVIDERS: ATTEND Radiology Diagnostic Radiology
DX: Z45.2 Encounter for adjustment and management of vascular access device (principal)

== ENCOUNTER → 2019-10-27 | Outpatient (CLI) | payer MEDICARE, OTHER ==
[~2019-10-27] MED LIST changes: -ASPI81TA85 PO; +ASPI81TA86 PO; +SPIR-10 PO; +TORS20TA2 PO; -TREL1AER IN; +TREL1AER INH
--- NOTE | 2019-10-27 14:28 | REPPI ---
Clinical: Pneumonia. Technique: PA and lateral. Comparison: 03/18/2019. Findings: Diffuse chronic interstitial changes are appreciated. Superimposed right lower lobe infiltrate and pleural effusion are again identified and similar to prior examination. Stable cardiomegaly. [id number] identified with tip in the right atrium. Skeletal structures demonstrate age-related degenerative changes. Impression: Diffuse chronic interstitial changes and cardiomegaly. Right lower lobe infiltrate and small right pleural effusion similar to prior examination. Electronically Signed by Mac Perkins MD 10/27/2019 02:20 P
== END ==
LOC: M PLAIMG 14:04
PROVIDERS: ATTEND Internal Medicine Pulmonary Disease
DX: J16.8 Pneumonia due to other specified infectious organisms (principal); I51.7 Cardiomegaly

== ENCOUNTER → 2019-11-12 | Outpatient (CLI) | payer MEDICARE, OTHER ==
[~2019-11-12] MED LIST changes: +GASTROGRAFIN SOLUTION 30ML (Q9963) As Ordered ONE; +ISOVUE-370 76% 100ML VIAL As Ordered ONE
--- NOTE | 2020-01-02 09:42 | REP ---
CT CHEST WITH INTRAVENOUS (IV) CONTRAST FOR RE-STAGING OF LUNG CARCINOMA Delay in reporting results from hospital computer system malfunction from malware/ ransomware. COMPARISON: 07/17/2019 FINDINGS: The known enlarged mediastinal lymph node is again identified. It is posterior to the uday along the right lateral margin of the esophagus today, measuring 0.9 x 2.2 cm. On the comparison study, this measured 1.7 x 2.4 cm and has decreased slightly in size. No other mediastinal adenopathy is identified. There is no hilar adenopathy or axillary adenopathy. There are no lung masses or nodules. The interstitial coarsening identified on the comparison study has decreased. Cardiac size appears enlarged. This is unchanged. There is a small pericardial effusion, unchanged. This measures approximately 16 mm in depth along the right cardiac margin. Previously this measured 18 mm in depth. The small left pleural effusion and the small loculated right pleural effusion are unchanged. There are no lytic, blastic, or destructive skeletal changes, this is unchanged. There appears to be advanced osteoarthritis in the shoulders bilaterally, this is unchanged. IMPRESSION: The single enlarged mediastinal node has decreased in size. There is no other lymphadenopathy. Cardiomegaly, unchanged. (Please See Next Page) Pericardial effusion, not significantly changed. The interstitial coarsening identified previously has significantly decreased. No lung masses or nodules are identified. The small bilateral pleural effusions are unchanged. Bilateral advanced glenohumeral osteoarthritis. This is unchanged. MTDD
--- NOTE | 2020-01-02 09:43 | REP ---
CT OF THE ABDOMEN AND PELVIS WITH INTRAVENOUS (IV) AND BOWEL CONTRAST FOR FOLLOW-UP OF NONSMALL CELL LUNG CARCINOMA Delay in reporting results from hospital computer system malfunction from malware/ ransomware. COMPARISON: CT of the abdomen and pelvis dated 07/17/2019. The patient has also had a chest CT this same date. FINDINGS: Within the visualized lower lung allred cardiomegaly and small pericardial effusions are again identified, unchanged. The hepatic parenchyma is homogeneous. The gallbladder, pancreas, and spleen are normal size, unremarkable, and unchanged. There is no adrenal mass. The kidneys are unchanged. There are no renal masses. No hydronephrosis. Occasional small renal cortical cysts are identified. The abdominal aorta is unremarkable. There is no periaortic adenopathy or mass. The bowel and mesentery are unchanged. There is broad diastasis of the rectus abdominis with a broad ventral hernia, unchanged. PELVIS: There image degradation from beam hardening artifact as the result of bilateral hip arthroplasties. This is unchanged. There is no adenopathy or ascites. The bladder was unremarkable. There is a circumferential anastomotic suture line in the sigmoid colon. This is unchanged. The pelvic bowel loops are otherwise unremarkable. There are no lytic, blastic, or destructive skeletal changes. There is degenerative disk disease throughout the lumbar spine. IMPRESSION: There is no evidence of mass, adenopathy, or ascites. There is no significant change from the prior study. MTDD
== END ==
LOC: M RAD 10:00
PROVIDERS: ATTEND Internal Medicine Medical Oncology
DX: C34.90 Malignant neoplasm of unspecified part of unspecified bronchus or lung (principal); R59.1 Generalized enlarged lymph nodes; I51.7 Cardiomegaly; I31.3 Pericardial effusion (noninflammatory)
CPT/HCPCS: 71260; 74177; J1642; Q9963; Q9967

== ENCOUNTER → 2019-11-17 | Outpatient (REF) | payer MEDICARE, OTHER ==
[~2019-11-17] MED LIST changes: -GASTROGRAFIN SOLUTION 30ML (Q9963) As Ordered ONE; -ISOVUE-370 76% 100ML VIAL As Ordered ONE
== END ==
LOC: M LAB REF 09:39
PROVIDERS: ATTEND Internal Medicine Pulmonary Disease
DX: J16.8 Pneumonia due to other specified infectious organisms (principal)

== ENCOUNTER → 2019-12-08 | Outpatient (CLI) | payer MEDICARE, OTHER ==
[2019-12-08 14:09] LABS: ALBUMIN 2.7 GM/DL (3.2-5.2); ALT/SGPT 19 U/L (12-78); BILIRUBIN,TOTAL 0.6 MG/DL (0.2-1.0); BLOOD UREA NITROGEN 17 MG/DL (7-18); CALCIUM LEVEL 8.7 MG/DL (8.8-10.2); CARBON DIOXIDE LEVEL 31 MEQ/L (21-32); CHLORIDE LEVEL 100 MEQ/L (98-107); CREATININE FOR GFR 1.19 MG/DL (0.70-1.30); GLOMERULAR FILTRATION RATE > 60.0 (>42); GLUCOSE, FASTING 77 MG/DL (70-100); POTASSIUM SERUM 4.6 MEQ/L (3.5-5.1); SODIUM LEVEL 139 MEQ/L (136-145); TOTAL PROTEIN 6.1 GM/DL (6.4-8.2)
== END ==
LOC: M PLALAB 11:04
PROVIDERS: ATTEND Internal Medicine Pulmonary Disease
DX: R06.00 Dyspnea, unspecified (principal)

== ENCOUNTER → 2019-12-09 | Outpatient (REF) | payer MEDICARE, OTHER | LOC: M LAB REF 19:15 | PROVIDERS: ATTEND Physician Assistant Medical | DX: I50.32 Chronic diastolic (congestive) heart failure (principal); R06.02 Shortness of breath; I48.20 Chronic atrial fibrillation, unspecified ==

== ENCOUNTER → 2019-12-18 | Outpatient (CLI) | payer MEDICARE, OTHER ==
--- NOTE | 2019-12-18 13:33 | REPVR ---
PROCEDURE INFORMATION: Exam: US Duplex Right Upper Extremity Veins, Limited Exam date and time: 12/18/2019 12:54 PM Age: 74 years old Clinical indication: Other: Redness/swelling; Prior surgery; Surgery date: 1-6 months; Surgery type: Chemo port placement 7-8 weeks ago; Additional info: RT arm/chest redness/swelling, R/O dvt, on bloodthinners TECHNIQUE: Imaging protocol: Real-time Duplex ultrasound of the Right Upper Extremity with 2-D rinaldi scale, color Doppler flow and spectral waveform analysis with image documentation. Limited exam focused on the right upper extremity veins. COMPARISON: No relevant prior studies available. FINDINGS: Right deep veins: Unremarkable. Axillary and brachial veins are patent throughout without thrombus. Normal Doppler waveforms. Normal compressibility and/or augmentation response. Visualized internal jugular and subclavian veins are patent. Right superficial veins: Unremarkable. Visualized cephalic and basilic veins are patent without thrombus. Soft tissues: Unremarkable. IMPRESSION: No evidence of deep vein thrombosis. Electronically signed by: Moreno Coffey On 12/18/2019 13:33:20 PM
== END ==
LOC: M RAD 12:26
PROVIDERS: ATTEND Internal Medicine Medical Oncology
DX: R22.31 Localized swelling, mass and lump, right upper limb (principal)

== ENCOUNTER 2019-12-19 12:13 | Inpatient (IN) | payer MEDICARE, OTHER ==
[~2019-12-19] VITALS: Ht 175.3 cm; Wt 101.4 kg
[2019-12-19 13:02] LABS: BASO # 0.1 10^3/uL (0.0-0.2); BASO % 0.2 % (0.0-1.0); HEMATOCRIT 34.1 % (42.0-52.0); HEMOGLOBIN 11.1 g/dl (13.5-17.5); LYMPH # 1.4 10^3/uL (1.5-5.0); LYMPH % 5.3 % (24.0-44.0); MEAN CORPUSCULAR HEMOGLOBIN 28.1 pg (27.0-33.0); MEAN CORPUSCULAR HGB CONC 32.6 g/dl (32.0-36.5); MEAN CORPUSCULAR VOLUME 86.3 fl (80.0-96.0); MONO % 7.6 % (0.0-5.0); NEUTROPHILS # 22.1 10^3/uL (1.5-8.5); NEUTROPHILS % 85.4 % (36.0-66.0); PLATELET COUNT, AUTOMATED 404 10^3/uL (150-450); RED BLOOD COUNT 3.95 10^6/uL (4.30-6.10); WHITE BLOOD COUNT 25.9 10^3/uL (4.0-10.0)
--- NOTE | 2019-12-19 13:10 | REPVR ---
PROCEDURE INFORMATION: Exam: XR Chest, 1 View Exam date and time: 12/19/2019 12:33 PM Age: 74 years old Clinical indication: Condition or disease; Other: Infected infusaport; Additional info: Cough TECHNIQUE: Imaging protocol: XR of the chest Views: 1 view. COMPARISON: CT Chest with contrast 11/12/2019 10:08 AM (report not provided) FINDINGS: Tubes, catheters and devices: A right-sided Port-A-Cath is again present with its tip approximately 3 cm beyond the expected level of the cavoatrial junction. Lungs: There is mild right basilar atelectasis and possibly infiltrate. The lungs are otherwise clear. Pleural space: There is a small right pleural effusion. The left costophrenic angle is not fully included, but no significant left pleural effusion is evident. No pneumothorax is identified. Heart/Mediastinum: The cardiac silhouette appears large. Bones/joints: Degenerative changes involve the spine and shoulders. IMPRESSION: 1. Cardiomegaly with a small right pleural effusion and mild right basilar atelectasis and possibly infiltrate. 2. Right-sided Port-A-Cath with tip in region of right atrium, approximately 3 cm beyond expected level of cavoatrial junction. Electronically signed by: Antoine Lama On 12/19/2019 13:10:23 PM
[2019-12-19 13:13] LABS: INR 1.79; PROTHROMBIN TIME 21.2 SECONDS (11.8-14.0)
[2019-12-19 13:14] LABS: PARTIAL THROMBOPLASTIN TIME 34.2 SECONDS (25.0-38.4)
[2019-12-19 13:54] LABS: ALBUMIN 3.3 GM/DL (3.2-5.2); ALT/SGPT 19 U/L (12-78); BILIRUBIN,DIRECT < 0.1 MG/DL (0.0-0.2); BILIRUBIN,TOTAL 0.5 MG/DL (0.2-1.0); BLOOD UREA NITROGEN 41 MG/DL (7-18); CALCIUM LEVEL 8.9 MG/DL (8.8-10.2); CARBON DIOXIDE LEVEL 32 MEQ/L (21-32); CHLORIDE LEVEL 102 MEQ/L (98-107); CREATININE FOR GFR 1.28 MG/DL (0.70-1.30); DIGOXIN LEVEL 0.6 NG/ML (0.5-2.0); GLOMERULAR FILTRATION RATE 58.5 (>42); GLUCOSE, FASTING 91 MG/DL (70-100); POTASSIUM SERUM 4.1 MEQ/L (3.5-5.1); SODIUM LEVEL 139 MEQ/L (136-145); TOTAL PROTEIN 6.7 GM/DL (6.4-8.2)
[2019-12-19] MEDS ORDERED: LevoFLOXacin IV 750 MG in IV 1 EA IV ONE (14:15)
[2019-12-19] MEDS ORDERED: NS 1,000 ML IV SCH (14:15)
[2019-12-19] MEDS ORDERED: BISO10TA14 PO (15:10)
[2019-12-19] MEDS ORDERED: MOM 30ML SUSPENSION UDC PO PRN (16:00)
[2019-12-19] MEDS ORDERED: ALBUTEROL SULFATE 2.5 MG/0.5 ML INH NEB SOLN NEB PRN (16:15)
[2019-12-19] MEDS ORDERED: VANCOMYCIN HCL 1,000 MG, VIAL MATE ADAPTER 1 EACH in D5W 250 ML IV ONE (17:00)
[2019-12-19] MEDS: TORSEMIDE 20 MG TAB PO SCH (17:55)
--- NOTE | 2019-12-19 19:18 | HPEPDOC ---
General Date of Admission 12/19/19 Date of Service: Dec 19, 2019 Chief Complaint The patient is a 74-year-old male admitted with a reason for visit of Port Problem. 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 Prechemotherapy labs showed severely elevated WBC at 40k. His skin around the port site was red . He was thought to have a port infection. He was given keflex, cultures sent from port and also from the periphery. He had an appointment with his PMD today and his PMD referred him to the ED. There was no pain at the port site or the tunnel , cultures from the port and periphery on 12/17 are coming back negative. He complained of cough for about a month and leg swelling also for a month. He has exertional dyspnea, and difficulty in laying flat in bed as that makes the cough worse. He has also noticed some increased wheezing. He reports that his diuretics have been increased and after starting the antibiotics his cough is also better since yesterday. CXR in [facility] ED showed right basal infiltrates/ atelectasis, small pleural effusion. He was admitted for cellulitis of the chest wall around the port and possible CHF. Home Medications Scheduled Bifidobacterium Infantis (Align) 4 Mg Cap, 4 MG PO DAILY, (Reported) Bisoprolol Fumarate (Bisoprolol Fumarate) 10 Mg Tablet, 5 MG PO BID Cephalexin (Cephalexin) 500 Mg Capsule, 1 CAP PO TID Dexamethasone (Dexamethasone) 4 Mg Tablet, 4 MG PO ASDIRECTED TAKE 2 TABLETS BY MOUTH TWICE DAILY FOR 3 DAYS, STARTING THE DAY BEFORE CHEMO. Digoxin (Digoxin) 125 Mcg Tablet, 125 MCG PO DAILY, (Reported) Docusate Sodium (Stool Softener) 100 Mg Capsule, 200 MG PO DAILY, (Reported) Fluticasone/Umeclidin/Vilanter (Trelegy Ellipta 100-62.5-25) 1 Each Blst.w.dev, 1 PUFF INH DAILY, (Reported) Folic Acid (Folic Acid) 1 Mg Tablet, 1 TAB PO DAILY Lidocaine/Prilocaine (Lidocaine-Prilocaine Cream) 2.5%/2.5% Cream..g., [address] DIME-SIZED AMOUNT TO PORT SITE ONE HOUR PRIOR TO TREATMENT Multivitamins (Thera M Plus Tablet) 1 Tab Tab, 1 TAB PO DAILY, (Reported) Rivaroxaban (Xarelto) 20 Mg Tab, 20 MG PO QHS, (Reported) Spironolactone (Spironolactone) 25 Mg Tablet, 12.5 MG PO DAILY, (Reported) Torsemide (Torsemide) 20 Mg Tablet, 40 MG PO BID, (Reported) Scheduled PRN Ondansetron HCl (Ondansetron HCl) 8 Mg Tablet, 8 MG PO Q6H PRN for NAUSEA TAKE ONE TABLET EVERY 6 HOURS NEEDED FOR NAUSEA. Prochlorperazine Maleate (Prochlorperazine Maleate) 10 Mg Tablet, 10 MG PO Q8H PRN for NAUSEA TAKE ONE TABLET EVERY 8 HOURS NEEDED FOR NAUSEA. Allergies Coded Allergies: No Known Allergies (Unverified , 04/23/18) Past Medical History Medical History Stage 4 adenocarcinoma of right lung Atrial fibrillation. Hypertension. H/o Colovesical fistula s/p multiple surgeries. Surgical History Bilateral total hip replacement. Left total knee replacement. Multiple abdominal surgeries for colovesical fistula. Family History Significant for the patient's mother that at 53 from lung cancer (smoker), and coronary artery disease in a brother and the patient's father. Social History * Smoker: former Smoker Alcohol: Denies Drugs: denies A-FIB/CHADSVASC A-FIB History Current/History of A-Fib/PAF?: Yes Current PO Anticoag Therapy: Yes Review of Systems Constitutional: Denies: Chills, Fever, Night Sweats Eyes: Denies: Pain, Vision change ENT: Denies: Head Aches, Ear Pain, Dysphagia Skin: Denies: Rash, Lesions, Breakdown Pulmonary: Reports: Dyspnea, Cough Cardiovascular: Reports: Edema; Denies: Orthopnea, Lt Headedness Gastrointestinal: Denies: Nausea, Vomiting, Abdominal Pain, Diarrhea Genitourinary: Denies: Dysuria, Frequency, Incontinence, Retention Hematologic: Denies: Bruising, Bleeding Excessively Musculoskeletal: Denies: Neck Pain, Back Pain, Joint Pain, Muscle Pain, Spasms Physical Examination General Exam: Positive: Alert, Cooperative, No Acute Distress Eye Exam: Positive: PERRLA, Conjunctiva & lids normal, EOMI; Negative: Sclera icteric ENT Exam: Positive: Atraumatic, Mucous membr. moist/pink, Pharynx Normal Neck Exam: Positive: Supple, JVD; Negative: thyromegaly Chest Exam: Positive: Rhonchi, Wheezing Heart Exam: Positive: Rate Normal, Regular Rhythm, Normal S1, Normal S2; Negative: Murmurs, Rubs Abdomen Exam: Positive: Normal bowel sounds, Soft; Negative: Tenderness, Hepatospenomegaly Extremity Exam: Positive: Edema; Negative: Clubbing, Cyanosis Skin Exam: Positive: Nl turgor and temperature; Negative: Breakdown, Lesion Neuro Exam: Positive: Normal Speech, Strength at 5/5 X4 ext, Normal Tone Vital Signs Vital Signs Date Time Temp Pulse Resp B/P (MAP) Pulse Ox O2 Delivery O2 Flow Rate FiO2 12/19/19 12:46 Room Air 12/19/19 12:46 12/19/19 12:14 96.7 74 20 99 Laboratory Data Labs 24H Laboratory Tests 2 12/19/19 12:44: Immature Granulocyte % (Auto) 1.5, Neutrophils (%) (Auto) 85.4H, Lymphocytes (%) (Auto) 5.3L, Monocytes (%) (Auto) 7.6H, Eosinophils (%) (Auto) 0.0, Basophils (%) (Auto) 0.2, Neutrophils # (Auto) 22.1H, Lymphocytes # (Auto) 1.4L, Monocytes # (Auto) 2.0H, Eosinophils # (Auto) 0.0, Basophils # (Auto) 0.1, Nucleated Red Blood Cells % (auto) 0.0, Prothrombin Time 21.2H, Prothromb Time International Ratio 1.79, Activated Partial Thromboplast Time 34.2, Urine Color YELLOW, Urine Appearance CLEAR, Urine pH 6.0, Urine Specific Thayer 1.006, Urine Protein NEGATIVE, Urine Glucose (UA) NEGATIVE, Urine Ketones NEGATIVE, Urine Blood NEGA TIVE, Urine Nitrite NEGATIVE, Urine Bilirubin NEGATIVE, Urine Urobilinogen 0.2, Urine Leukocyte Esterase NEGATIVE, Urine WBC (Auto) 0, Urine RBC (Auto) 2, Urine Hyaline Casts (Auto) 1, Urine Bacteria (Auto) NEGATIVE, Urine Squamous Epithelial Cells 0, Urine Sperm (Auto) , Anion Gap 5L, Glomerular Filtration Rate 58.5, Lactic Acid Level 1.8, Calcium Level 8.9, Total Bilirubin 0.5, Direct Bilirubin < 0.1, Aspartate Amino Transf (AST/SGOT) 32, Alanine Aminotransferase (ALT/SGPT) 19, Alkaline Phosphatase 75, Total Protein 6.7, Albumin 3.3, Albumin/Globulin Ratio 1.0, Digoxin Level 0.6 CBC/BMP Laboratory Tests 12/19/19 12:44 Microbiology Microbiology 12/19/19 Blood Culture, Received Pending Assessment/Plan 74 year old male with 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 Prechemotherapy labs showed severely elevated WBC at 40k. His skin around the port site was red . He was thought to have a port infection. He was given keflex, cultures sent from port and also from the periphery. He had an appointment with his PMD today and his PMD referred him to the ED. There was no pain at the port site or the tunnel , cultures from the port and periphery on 12/17 are coming back negative. He complained of cough for about a month and leg swelling also for a month. He has exertional dyspnea, and difficulty in laying flat in bed as that makes the cough worse. He has also noticed some increased wheezing. He reports that his diuretics have been increased and after starting the antibiotics his cough is also better since yesterday. CXR in [facility] ED showed right basal infiltrates/ atelectasis, small pleural effusion. He was admitted for cellulitis of the chest wall around the port and possible CHF. Cellulitis of chest wall will give ceftriaxone and vancomiycin mrsa pcr. ?CHF will continue torsemide and spironolactone echo. Chronic Afib continue bisoprolol and xarelto and digoxin Stage 4 adenocarcinoma of lungs oncology follow up. COPD continue symbicort and spiriva albuterol prn. Plan / VTE VTE Prophylaxis Ordered?: Yes MARY ZAMBRANO MD Dec 19, 2019 14:37
[2019-12-19] MEDS: DOCUSATE SODIUM 100 MG CAP PO SCH (20:08)
[2019-12-19] MEDS: VANCOMYCIN HCL 1,000 MG, VIAL MATE ADAPTER 1 EACH in D5W 250 ML IV SCH (20:08)
[2019-12-19] MEDS: RIVAROXABAN 20 MG TAB (XARELTO) PO SCH (20:08)
[2019-12-19] MEDS: bisoproloL fumarate 5 MG TAB PO SCH (20:08)
[2019-12-19] MEDS: cefTRIAXone SOD 2 GM in D5W MINI-BAG PLUS 50 ML IV SCH (21:56)
[2019-12-19] MEDS: SYMBICORT 160/4.5MCG INHALER 6GM INH SCH (21:58)
[2019-12-19 22:00] VITALS: BP 114/62
[2019-12-20 06:00] VITALS: BP 110/61
[2019-12-20 06:59] LABS: HEMATOCRIT 32.7 % (42.0-52.0); HEMOGLOBIN 10.5 g/dl (13.5-17.5); MEAN CORPUSCULAR HEMOGLOBIN 27.6 pg (27.0-33.0); MEAN CORPUSCULAR HGB CONC 32.1 g/dl (32.0-36.5); MEAN CORPUSCULAR VOLUME 86.1 fl (80.0-96.0); PLATELET COUNT, AUTOMATED 330 10^3/uL (150-450); WHITE BLOOD COUNT 17.8 10^3/uL (4.0-10.0)
[2019-12-20 07:11] LABS: BLOOD UREA NITROGEN 36 MG/DL (7-18); CALCIUM LEVEL 8.7 MG/DL (8.8-10.2); CARBON DIOXIDE LEVEL 30 MEQ/L (21-32); CHLORIDE LEVEL 102 MEQ/L (98-107); CREATININE FOR GFR 1.23 MG/DL (0.70-1.30); GLOMERULAR FILTRATION RATE > 60.0 (>42); GLUCOSE, FASTING 101 MG/DL (70-100); POTASSIUM SERUM 3.7 MEQ/L (3.5-5.1); SODIUM LEVEL 139 MEQ/L (136-145)
[2019-12-20] MEDS: SYMBICORT 160/4.5MCG INHALER 6GM INH SCH ×2 (07:33→20:20)
[2019-12-20] MEDS: TIOTROPIUM INHALER/CAPSULE (SPIRIVA) INH SCH (07:33)
[2019-12-20] MEDS ORDERED: bisoproloL fumarate 10 MG TAB PO SCH (09:00)
[2019-12-20] MEDS: VANCOMYCIN HCL 1,000 MG, VIAL MATE ADAPTER 1 EACH in D5W 250 ML IV SCH ×2 (09:29→20:44)
[2019-12-20] MEDS: DOCUSATE SODIUM 100 MG CAP PO SCH ×2 (09:32→20:49)
[2019-12-20] MEDS: SPIRONOLACTONE 12.5MG PER 1/2 TABLET PO SCH (09:32)
[2019-12-20] MEDS: TORSEMIDE 20 MG TAB PO SCH ×2 (09:33→17:10)
[2019-12-20] MEDS: FOLIC ACID 1 MG TAB PO SCH (09:34)
[2019-12-20] MEDS: DIGOXIN 0.125 MG TAB PO SCH (09:34)
[2019-12-20] MEDS: MULTIVITAMINS/MINERALS THERAP 1 TAB PO SCH (09:37)
--- NOTE | 2019-12-20 11:00 | IPNPDOC ---
Text Note Date of Service The patient was seen on 12/20/19. NOTE Subjective: Cough bettr, no complaints, having breakfast good appetite. Physical Exam: Vitals: As below General Exam: Positive: Alert, Cooperative, No Acute Distress Eye Exam: Positive: PERRLA, Conjunctiva & lids normal, EOMI; Negative: Sclera icteric ENT Exam: Positive: Atraumatic, Mucous membr. moist/pink, Pharynx Normal Neck Exam: Positive: Supple, JVD; Negative: thyromegaly Chest Exam: Positive: Rhonchi, Wheezing Heart Exam: Positive: Rate Normal, Regular Rhythm, Normal S1, Normal S2; Negative: Murmurs, Rubs Abdomen Exam: Positive: Normal bowel sounds, Soft; Sacrum edema. 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 Prechemotherapy labs showed severely elevated WBC at 40k. His skin around the port site was red . He was thought to have a port infection. He was given keflex, cultures sent from port and also from the [facility] [place]. He had an appointment with his PMD today and his PMD referred him to the ED. There was no pain at the port site or the tunnel , cultures from the port and periphery on 12/17 are coming back negative. He complained of cough for about a month and leg swelling also for a month. He has exertional dyspnea, and difficulty in laying flat in bed as that makes the cough worse. He has also noticed some increased wheezing. He reports that his diuretics have been increased and after starting the antibiotics his cough is also better since yesterday. CXR in [facility] ED showed right basal infiltrates/ atelectasis, small pleural effusion. He was admitted for cellulitis of the chest wall around the port and possible CHF. Cellulitis of chest wall will give ceftriaxone and vancomiycin mrsa pcr. ?CHF will continue torsemide and spironolactone echo. Chronic Afib continue bisoprolol and xarelto and digoxin Stage 4 adenocarcinoma of lungs oncology follow up. COPD continue symbicort and spiriva albuterol prn. VS,Fishbone, I+O VS, Fishbone, I+O Laboratory Tests 12/19/19 12:44 12/20/19 05:58 Vital Signs Date Time Temp Pulse Resp B/P (MAP) Pulse Ox O2 Delivery O2 Flow Rate FiO2 12/20/19 09:34 90 12/20/19 09:00 104/63 12/20/19 06:00 97.9 17 94 12/19/19 22:00 Room Air I&O- Last 24 Hours up to 6 AM 12/20/19 05:59 Intake Total 300 ml Output Total 725 ml Balance -425 ml MARY ZAMBRANO MD Dec 20, 2019 10:59
[2019-12-20 14:00] VITALS: BP 100/66
[2019-12-20] MEDS: cefTRIAXone SOD 2 GM in D5W MINI-BAG PLUS 50 ML IV SCH (19:11)
[2019-12-20] MEDS: RIVAROXABAN 20 MG TAB (XARELTO) PO SCH (20:49)
[2019-12-20] MEDS: bisoproloL fumarate 5 MG TAB PO SCH (21:00)
[2019-12-20 22:00] VITALS: BP 108/58
[2019-12-21 06:00] VITALS: BP 106/59
[2019-12-21 07:20] LABS: HEMATOCRIT 36.5 % (42.0-52.0); HEMOGLOBIN 11.8 g/dl (13.5-17.5); MEAN CORPUSCULAR HEMOGLOBIN 27.3 pg (27.0-33.0); MEAN CORPUSCULAR HGB CONC 32.3 g/dl (32.0-36.5); MEAN CORPUSCULAR VOLUME 84.3 fl (80.0-96.0); PLATELET COUNT, AUTOMATED 376 10^3/uL (150-450); RED BLOOD COUNT 4.33 10^6/uL (4.30-6.10); WHITE BLOOD COUNT 14.5 10^3/uL (4.0-10.0)
[2019-12-21] MEDS: TIOTROPIUM INHALER/CAPSULE (SPIRIVA) INH SCH (07:34)
[2019-12-21] MEDS: SYMBICORT 160/4.5MCG INHALER 6GM INH SCH ×2 (07:34→19:45)
[2019-12-21 07:43] VITALS: O2SAT 96
[2019-12-21 08:55] LABS: BLOOD UREA NITROGEN 28 MG/DL (7-18); CALCIUM LEVEL 8.4 MG/DL (8.8-10.2); CARBON DIOXIDE LEVEL 29 MEQ/L (21-32); CHLORIDE LEVEL 103 MEQ/L (98-107); CREATININE FOR GFR 1.09 MG/DL (0.70-1.30); GLOMERULAR FILTRATION RATE > 60.0 (>42); GLUCOSE, FASTING 110 MG/DL (70-100); POTASSIUM SERUM 3.9 MEQ/L (3.5-5.1); SODIUM LEVEL 141 MEQ/L (136-145)
[2019-12-21] MEDS: VANCOMYCIN HCL 1,000 MG, VIAL MATE ADAPTER 1 EACH in D5W 250 ML IV SCH ×2 (09:38→20:36)
[2019-12-21] MEDS: SPIRONOLACTONE 12.5MG PER 1/2 TABLET PO SCH (10:11)
[2019-12-21] MEDS: DOCUSATE SODIUM 100 MG CAP PO SCH ×2 (10:11→20:36)
[2019-12-21] MEDS: MULTIVITAMINS/MINERALS THERAP 1 TAB PO SCH (10:11)
[2019-12-21] MEDS: TORSEMIDE 20 MG TAB PO SCH ×2 (10:11→17:18)
[2019-12-21] MEDS: FOLIC ACID 1 MG TAB PO SCH (10:11)
[2019-12-21] MEDS: bisoproloL fumarate 5 MG TAB PO SCH ×2 (10:12→22:58)
[2019-12-21] MEDS: DIGOXIN 0.125 MG TAB PO SCH (10:12)
--- NOTE | 2019-12-21 10:34 | IPNPDOC ---
Text Note Date of Service The patient was seen on 12/21/19. NOTE Subjective: Cough better, no complaints, Good urine output. Redness around the port better. Physical Exam: Vitals: As below General Exam: Positive: Alert, Cooperative, No Acute Distress Eye Exam: Positive: PERRLA, Conjunctiva & lids normal, EOMI; Negative: Sclera icteric ENT Exam: Positive: Atraumatic, Mucous membr. moist/pink, Pharynx Normal Neck Exam: Positive: Supple, JVD; Negative: thyromegaly Chest Exam: Positive: Rhonchi, Wheezing Heart Exam: Positive: Rate Normal, Regular Rhythm, Normal S1, Normal S2; Negative: Murmurs, Rubs Abdomen Exam: Positive: Normal bowel sounds, Soft; Sacrum edema. 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 Prechemotherapy labs showed severely elevated WBC at 40k. His skin around the port site was red . He was thought to have a port infection. He was given keflex, cultures sent from port and also from the periphery. He had an appointment with his PMD today and his PMD referred him to the ED. There was no pain at the port site or the tunnel , cultures from the port and periphery on 12/17 are coming back negative. He complained of cough for about a month and leg swelling also for a month. He has exertional dyspnea, and difficulty in laying flat in bed as that makes the cough worse. He has also noticed some increased wheezing. He reports that his diuretics have been increased and after starting the antibiotics his cough is also better since yesterday. CXR in [facility] ED showed right basal infiltrates/ atelectasis, small pleural effusion. He was admitted for cellulitis of the chest wall around the port and possible CHF. Cellulitis of chest wall ceftriaxone and vancomiycin mrsa pcr ?CHF will continue torsemide and spironolactone echo done Chronic Afib continue bisoprolol and xarelto and digoxin Stage 4 adenocarcinoma of lungs oncology follow up. COPD continue symbicort and spiriva albuterol prn. VS,Fishbone, I+O VS, Fishbone, I+O Laboratory Tests 12/21/19 07:04 Vital Signs Date Time Temp Pulse Resp B/P (MAP) Pulse Ox O2 Delivery O2 Flow Rate FiO2 12/21/19 10:12 96 104/72 12/21/19 07:43 96 Room Air 12/21/19 06:00 97.2 18 I&O- Last 24 Hours up to 6 AM 12/21/19 06:00 Intake Total 1170 ml Output Total 1750 ml Balance -580 ml MARY ZAMBRANO MD Dec 21, 2019 10:34
[2019-12-21 14:00] VITALS: BP 101/71
[2019-12-21] MEDS: cefTRIAXone SOD 2 GM in D5W MINI-BAG PLUS 50 ML IV SCH (17:18)
[2019-12-21] MEDS: RIVAROXABAN 20 MG TAB (XARELTO) PO SCH (20:36)
[2019-12-21 22:00] VITALS: BP 102/70
[2019-12-22 06:00] VITALS: BP 100/60
[2019-12-22 06:22] LABS: HEMATOCRIT 35.9 % (42.0-52.0); HEMOGLOBIN 11.5 g/dl (13.5-17.5); MEAN CORPUSCULAR HEMOGLOBIN 27.4 pg (27.0-33.0); MEAN CORPUSCULAR VOLUME 85.7 fl (80.0-96.0); PLATELET COUNT, AUTOMATED 326 10^3/uL (150-450); RED BLOOD COUNT 4.19 10^6/uL (4.30-6.10); WHITE BLOOD COUNT 12.7 10^3/uL (4.0-10.0)
[2019-12-22 06:52] LABS: BLOOD UREA NITROGEN 29 MG/DL (7-18); CALCIUM LEVEL 8.6 MG/DL (8.8-10.2); CARBON DIOXIDE LEVEL 32 MEQ/L (21-32); CHLORIDE LEVEL 101 MEQ/L (98-107); CREATININE FOR GFR 1.03 MG/DL (0.70-1.30); GLOMERULAR FILTRATION RATE > 60.0 (>42); GLUCOSE, FASTING 109 MG/DL (70-100); POTASSIUM SERUM 3.7 MEQ/L (3.5-5.1); SODIUM LEVEL 139 MEQ/L (136-145)
--- NOTE | 2019-12-22 07:21 | DS.PDOC ---
Discharge Summary General Date of Admission Dec 19, 2019 at 15:53 Date of Discharge 12/22/19 Discharge Summary PROCEDURES PERFORMED DURING STAY: [None]. DISCHARGE DIAGNOSES: Cellulitis of the chest wall related to port access. SECONDARY DIAGNOSIS: Stage 4 adenocarcinoma of right lung Chronic Atrial fibrillation. Hypertension. H/o Colovesical fistula s/p multiple surgeries. COPD COMPLICATIONS/CHIEF COMPLAINT: Pneumonia. 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 Prechemotherapy labs showed severely elevated WBC at 40k. His skin around the port site was red . He was thought to have a port infection. He was given keflex, cultures sent from port and also from the periphery. He had an appointment with his PMD today and his PMD referred him to the ED. There was no pain at the port site or the tunnel , cultures from the port and periphery on 12/17 are coming back negative. He complained of cough for about a month and leg swelling also for a month. He has exertional dyspnea, and difficulty in laying flat in bed as that makes the cough worse. He has also noticed some increased wheezing. He reports that his diuretics have been increased and after starting the antibiotics his cough is also better since yesterday. CXR in [facility] ED showed right basal infiltrates/ atelectasis, small pleural effusion. He was admitted for cellulitis of the chest wall around the port and possible CHF. Cellulitis of chest wall ceftriaxone and vancomycin in hospital will continue Keflex on discharge mrsa pcr was negative. ?CHF will continue torsemide and spironolactone echo done report pending. Chronic Afib continue bisoprolol and xarelto and digoxin Stage 4 adenocarcinoma of lungs oncology follow up. COPD continue symbicort and spiriva albuterol prn. DISCHARGE MEDICATIONS: Please see below. ALLERGIES: Please see below. PHYSICAL EXAMINATION ON DISCHARGE: VITAL SIGNS: Please see below. General Exam: Positive: Alert, Cooperative, No Acute Distress Eye Exam: Positive: PERRLA, Conjunctiva & lids normal, EOMI; Negative: Sclera icteric ENT Exam: Positive: Atraumatic, Mucous membr. moist/pink, Pharynx Normal Neck Exam: Positive: Supple, JVD; Negative: thyromegaly Chest Exam: Positive: Rhonchi, Wheezing Heart Exam: Positive: Rate Normal, Regular Rhythm, Normal S1, Normal S2; Negative: Murmurs, Rubs Abdomen Exam: Positive: Normal bowel sounds, Soft; Sacrum edema. Negative: Tenderness, Hepatospenomegaly Extremity Exam: Positive: Edema; Negative: Clubbing, Cyanosis Skin Exam: Positive: Nl turgor and temperature; Negative: Breakdown, Lesion Neuro Exam: Positive: Normal Speech, Strength at 5/5 X4 ext, Normal Tone LABORATORY DATA: Please see below. ACTIVITY: [As tolerated]. DIET: As tolerated DISPOSITION: Home DISCHARGE INSTRUCTIONS: Follow up Oncology in 3 days ITEMS TO FOLLOWUP ON ON OUTPATIENT: Final blood cultures Echo report. DISCHARGE CONDITION: [Stable]. TIME SPENT ON DISCHARGE: 35 minutes. Vital Signs/I&Os Vital Signs Date Time Temp Pulse Resp B/P (MAP) Pulse Ox O2 Delivery O2 Flow Rate FiO2 12/21/19 22:58 92 102/70 12/21/19 22:00 97.8 18 98 Room Air I&O- Last 24 Hours up to 6 AM 12/22/19 05:59 Intake Total 1290 ml Output Total 2050 ml Balance -760 ml Laboratory Data Labs 24H Laboratory Tests 2 12/22/19 05:40: Nucleated Red Blood Cells % (auto) 0.0, Anion Gap 6L, Glomerular Filtration Rate > 60.0, Calcium Level 8.6L CBC/BMP Laboratory Tests 12/22/19 05:40 Microbiology Microbiology 12/19/19 Blood Culture - Preliminary, Resulted No Growth after 48 hours. All Specime... Discharge Medications Scheduled Bifidobacterium Infantis (Align) 4 Mg Cap, 4 MG PO DAILY, (Reported) Bisoprolol Fumarate (Bisoprolol Fumarate) 10 Mg Tab, 10 MG PO DAILY, (Reported) Bisoprolol Fumarate (Bisoprolol Fumarate) 10 Mg Tablet, 5 MG PO QHS, (Reported) Cephalexin (Cephalexin) 500 Mg Capsule, 1 CAP PO TID Dexamethasone (Dexamethasone) 4 Mg Tablet, 4 MG PO ASDIRECTED TAKE 2 TABLETS BY MOUTH TWICE DAILY FOR 3 DAYS, STARTING THE DAY BEFORE CHEMO. Digoxin (Digoxin) 125 Mcg Tablet, 125 MCG PO DAILY, (Reported) Docusate Sodium (Stool Softener) 100 Mg Capsule, 200 MG PO DAILY, (Reported) Fluticasone/Umeclidin/Vilanter (Trelegy Ellipta 100-62.5-25) 1 Each Blst.w.dev, 1 PUFF INH DAILY, (Reported) Folic Acid (Folic Acid) 1 Mg Tablet, 1 TAB PO DAILY Lidocaine/Prilocaine (Lidocaine-Prilocaine Cream) 2.5%/2.5% Cream..g., [address] DIME-SIZED AMOUNT TO PORT SITE ONE HOUR PRIOR TO TREATMENT Multivitamins (Thera M Plus Tablet) 1 Tab Tab, 1 TAB PO DAILY, (Reported) Rivaroxaban (Xarelto) 20 Mg Tab, 20 MG PO QHS, (Reported) Spironolactone (Spironolactone) 25 Mg Tablet, 12.5 MG PO DAILY, (Reported) Torsemide (Torsemide) 20 Mg Tablet, 40 MG PO BID, (Reported) Scheduled PRN Ondansetron HCl (Ondansetron HCl) 8 Mg Tablet, 8 MG PO Q6H PRN for NAUSEA TAKE ONE TABLET EVERY 6 HOURS NEEDED FOR NAUSEA. Prochlorperazine Maleate (Prochlorperazine Maleate) 10 Mg Tablet, 10 MG PO Q8H PRN for NAUSEA TAKE ONE TABLET EVERY 8 HOURS NEEDED FOR NAUSEA. Allergies Coded Allergies: No Known Allergies (Unverified , 04/23/18) MARY ZAMBRANO MD Dec 22, 2019 07:21
[2019-12-22] MEDS: TIOTROPIUM INHALER/CAPSULE (SPIRIVA) INH SCH (07:58)
[2019-12-22] MEDS: SYMBICORT 160/4.5MCG INHALER 6GM INH SCH (07:58)
[2019-12-22] MEDS: DOCUSATE SODIUM 100 MG CAP PO SCH (08:33)
[2019-12-22] MEDS: SPIRONOLACTONE 12.5MG PER 1/2 TABLET PO SCH (08:33)
[2019-12-22] MEDS: VANCOMYCIN HCL 1,000 MG, VIAL MATE ADAPTER 1 EACH in D5W 250 ML IV SCH (08:33)
[2019-12-22] MEDS: DIGOXIN 0.125 MG TAB PO SCH (08:33)
[2019-12-22] MEDS: MULTIVITAMINS/MINERALS THERAP 1 TAB PO SCH (08:33)
[2019-12-22 08:34] VITALS: BP 114/79
[2019-12-22] MEDS: bisoproloL fumarate 5 MG TAB PO SCH (08:34)
[2019-12-22] MEDS: TORSEMIDE 20 MG TAB PO SCH (08:34)
[2019-12-22] MEDS: FOLIC ACID 1 MG TAB PO SCH (08:34)
[2019-12-22] MEDS ORDERED: BISO10TA14 PO (08:58)
--- NOTE | 2019-12-23 13:32 | ECHO ---
DATE OF PROCEDURE: 12/19/2019 Age: Gender: Male Height: Weight: REFERRING PHYSICIAN: Dr. Ekaterina Tanner Patient Location: EG 17 INDICATION: Shortness of breath. MEASUREMENTS: 2D measurements: IVS 1.0 cm LV 4.8 cm LVPW 1.0 cm LA 4.0 cm Aorta 3.7 cm IVC 2.0 cm DOPPLER MEASUREMENT: Peak velocity across the aortic valve 1.1 m/s Peak velocity across the LVOT 0.7 m/s Mitral E 1.0 Maximum tricuspid jet velocity 2.4 m/s 2D COMMENTS: 1. Normal left ventricular size, wall thickness and normal global left ventricular systolic function. The estimated left ventricular systolic ejection fraction is 60 to 65%. 2. Borderline enlarged left atrium. Normal right atrium and right ventricle. 3. The atrial septum appears to be normal without evidence of defect or shunt. 4. Borderline enlarged aortic root at 3.7 cm. 5. A small pericardial effusion was noted posteriorly. No evidence of cardiac tamponade. 6. Mildly calcified aortic valve with normal leaflet excursion. Normal mitral valve, tricuspid valve and pulmonic valve. The proximal pulmonary artery branches were not visualized. 7. The inferior vena cava was mildly enlarged, central venous pressure might be elevated. DOPPLER: It detects mild aortic regurgitation, trace mitral regurgitation and trace mild tricuspid regurgitation. The calculated pulmonary artery systolic pressure varies between 30 to 40 mmHg. Assessment of the left ventricular diastolic function was limited. IMPRESSION: 1. Normal global left ventricular systolic function. 2. Aortic valve sclerosis with mild aortic regurgitation, but no aortic stenosis. 3. Borderline enlarged left atrium, which does not show vegetation. 4. Just mild tricuspid regurgitation with mild to moderate hypertension. 5. A small pericardial effusion was noted. No evidence of cardiac tamponade. [facility]
[2020-01-30] MEDS ORDERED: CEPH500C PO (12:27)
== END 2019-12-22 11:10 | disposition home or self-care (01) | DRG 315 ==
LOC: M ED 12:13 → M ED INP 15:53 → M MSPAV 18:28
PROVIDERS: ADMIT Internal Medicine Nephrology; ATTEND Internal Medicine Nephrology
DX: T82.7XXA Infection and inflammatory reaction due to other cardiac and vascular devices, implants and grafts, initial encounter (principal); L03.313 Cellulitis of chest wall; C34.01 Malignant neoplasm of right main bronchus; I48.20 Chronic atrial fibrillation, unspecified; J44.9 Chronic obstructive pulmonary disease, unspecified; Y83.1 Surgical operation with implant of artificial internal device as the cause of abnormal reaction of the patient, or of later complication, without mention of misadventure at the time of the procedure; I10 Essential (primary) hypertension; Z96.643 Presence of artificial hip joint, bilateral; Z96.652 Presence of left artificial knee joint; Z87.891 Personal history of nicotine dependence; Z79.01 Long term (current) use of anticoagulants; Z79.899 Other long term (current) drug therapy

== ENCOUNTER → 2019-12-30 | Outpatient (REF) | payer MEDICARE, OTHER ==
[2019-12-30 17:58] LABS: ATYPICAL LYMPH 2 % (0-5); BASOPHILS 1 % (0-1); LYMPHOCYTES 7 % (16-44); MONOCYTES 8 % (0-5); NEUTROPHILS 82 % (28-66); PLATELET ESTIMATE NORMAL (NORMAL)
[2019-12-30 17:59] LABS: ANISOCYTOSIS 2+
== END ==
LOC: M LAB REF 16:25
PROVIDERS: ATTEND Registered Nurse
DX: D72.9 Disorder of white blood cells, unspecified (principal)

== ENCOUNTER → 2020-01-07 | Outpatient (CLI) | payer MEDICARE, OTHER ==
[~2020-01-07] MED LIST changes: +LIDOCAINE 1% MDV 20ML VIAL As Ordered ONE; +MIDAZOLAM INJ 2MG/2ML VIAL (J2250 PER 1MG) As Ordered ONE; +PROMETHAZINE INJ 25 MG/ML VIAL (J2550) As Ordered ONE; +ceFAZolin 1GM VIAL (J0690 PER 500MG) As Ordered ONE; +diphenhydrAMINE 50MG/ML VIAL (J1200) As Ordered ONE; +fentaNYL 100 MCG/2 ML INJECTION (J3010) As Ordered ONE
[2020-01-07 18:22] VITALS: BP 100/62
--- NOTE | 2020-01-08 09:27 | POST-OPPD ---
Postoperative Procedure Note Date Of Procedure: Jan 07, 2020 Time Of Procedure: 16:00 Port Removal / Explant Clinical Information:Port placement in August. Tunnel infection 4 months post p lacement. Physician: Dr. Daniel Procedure: The patient was advised of the benefits, risks, and alternatives of the procedure and informed consent was obtained. A time out was performed with verification of the patient's name, MRN, site of procedure, and type of procedure to be performed. The patient was positioned in the supine position on the angiographic table. The site was prepped and draped in the usual sterile fashion. Moderate sedation was performed by the physician including the presence of an independent trained observer who assisted in monitoring the patient's level of consciousness and physiological status. Following the administration of fentanyl and Versed the physician spent 30 minutes of continuous [id number] time with the patient. A biztalk architect radiograph reveals a right sided port. The soft tissues overlying the port were anesthetized with lidocaine. An incisi on was made over the port using a 15 blade scalpel in the location of the prior incision. The catheter was then freed with blunt dissection and extracted. Pressure was applied to obtain hemostasis. The port was then freed with blunt dissection and subsequently removed. After hemostasis was achieved, the port pocket was packed with Iodoform gauze for healing by secondary intention. The patient tolerated the procedure well and was returned to the PRU in stable condition. EBL:Less than 5 mL Complications:None. Conclusions: 1. Successful explant of a right-sided port. 2. Patient to follow-up for incision check and packing removal next week. The entire port was sent for culture. Thank you for this referral Cc ADOLFO Oliveira MD Jan 08, 2020 09:27
== END ==
LOC: M IRPRO 13:34
PROVIDERS: ATTEND Internal Medicine Infectious Disease
DX: T80.212A Local infection due to central venous catheter, initial encounter (principal)
CPT/HCPCS: 36590; 87071; 87077; 87186; 99152; 99153; J0690; J1644; J2250; J3010

== ENCOUNTER → 2020-02-11 | Outpatient (CLI) | payer MEDICARE, OTHER ==
[~2020-02-11] MED LIST changes: +COLC0.6T47 PO; -COLC1TAB13 PO; +GASTROGRAFIN SOLUTION 30ML (Q9963) As Ordered ONE; +ISOVUE-370 76% 100ML VIAL As Ordered ONE; -LIDOCAINE 1% MDV 20ML VIAL As Ordered ONE; -MIDAZOLAM INJ 2MG/2ML VIAL (J2250 PER 1MG) As Ordered ONE; -PROMETHAZINE INJ 25 MG/ML VIAL (J2550) As Ordered ONE; -ceFAZolin 1GM VIAL (J0690 PER 500MG) As Ordered ONE; -diphenhydrAMINE 50MG/ML VIAL (J1200) As Ordered ONE; -fentaNYL 100 MCG/2 ML INJECTION (J3010) As Ordered ONE
--- NOTE | 2020-02-11 13:10 | REP ---
INDICATION: LUNG CA FILE ROOM. COMPARISON: 11/12/2019, 07/17/2019. TECHNIQUE: Bolus of 100 mL Isovue 370 scanning through the chest with coronal and sagittal reconstructions. FINDINGS: A new small left pleural effusion. Is also small of right pleural effusion with some loculation. This is slightly larger than 11/12/2019. Scattered curvilinear fibrotic changes are noted in the right base as before I do not see parenchymal nodules or masses. No pleural thickening or pleural based mass identified. Heart is mildly enlarged with the left atrial enlargement. Pericardial effusion small and unchanged.. The right atrium also prominent. The thoracic aorta without aneurysm or dissection. Main, right and left pulmonary arteries and proximal lobar arteries without filling defects. The paraesophageal lymph node in the mediastinum on previous examinations is not well visualized on this study. It appeared smaller on the previous exam than in the July exam. No pathologic sized hilar adenopathy or mass. There is no axillary or supraclavicular mass. Indwelling port catheter has been removed since the November study. Bone windows show diffuse endplate degenerative changes in the spine without destructive lesion or compression deformities. Sternum, manubrium, clavicles, AC joints and shoulders without acute finding there are degenerative changes with narrowing of both shoulder joints. Upper abdominal structures will be discussed in detail on the CT abdomen this date. IMPRESSION: 1. New small left pleural effusion and stable appearance loculated right base pleural effusion some underlying curvilinear fibrotic changes in the lung allred. No new infiltrates nodules or masses. Nydia symmetric without gross mass. 2. Cannot confirm mediastinal or supraclavicular adenopathy. 3. Degenerative changes in the spine and shoulders no destructive lesion or compression fractures that would suggest metastatic disease in bone. <Electronically signed by Gage Ellis > 02/11/20 [id number]
--- NOTE | 2020-02-11 14:35 | REP ---
INDICATION: LUNG CA FILE ROOM. COMPARISON: CT 11/12/2019, 07/17/2019 TECHNIQUE: Bolus of 100 mL Isovue 370 with scanning through the abdomen and pelvis and coronal/sagittal reconstructions. Delayed images through the abdomen. Oral Gastrografin mixture per our bowel contrast protocol given FINDINGS: CT abdomen small left effusion and loculated right effusion as described in detail on the chest CT report. No definite hiatal hernia. Liver not enlarged there is a sub cm low-density nodule in the right hepatic lobe inferiorly in the subcapsular location on image 57 of series 206. It is unchanged from previous studies. No Paddock mass or biliary dilatation gallbladder without calcified stone or mass no focal splenic lesion or enlargement. No ascites adrenal glands intact. Kidneys show symmetric enhancement there is some lobation evident as well as some scarring at the lower pole on the right unchanged. No hydronephrosis, stone, mass or renal cyst. No hydroureter or ureteral stone. Diastasis of the rectus abdominus again noted with the broad herniation of small bowel loops into the anterior abdominal wall subcutaneous fat, without strangulation. Oral contrast seen throughout small bowel loops above and below the hernia. This is all stable. There is stool and gas scattered in the abdominal portion of colon without colitis or diverticulitis. Appendix is seen in the cecum shows no inflammatory changes, both normal. Calcifications aorta without aneurysm. No periaortic or retroperitoneal pathologic sized lymphadenopathy. Syndesmophytes and marginal osteophytes throughout the lumbar lower thoracic spine unchanged. No acute compression fractures or destructive lesions. Some hypertrophic facet changes posteriorly. Visualized ribs intact CT pelvis: Bilateral total hip arthroplasties are again noted. They somewhat limit evaluation of the deep pelvis even using metal artifact reduction algorithm. Visualized ureters to the bladder show no definite stone or mass. Bladder nearly empty so it cannot be evaluated for wall thickness or mass. No pelvic free fluid, inflammatory changes in bowel loops or masses. There is no inguinal hernia. There are surgical clips from prior inguinal herniorrhaphy. Bony sacrum, iliac and visualized pubic bones without acute finding there are postoperative changes with total hip arthroplasties all stable. IMPRESSION: No evidence of pathologic adenopathy, ascites mass or intraabdominal/pelvic metastatic disease. The sub cm low-density focus in the right lobe of the liver unchanged from previous studies consistent with benign finding. Large ventral abdominal wall hernia unchanged from multiple prior studies. New small left pleural effusion and stable loculated right base pleural effusion, see the CT chest this date for details. <Electronically signed by Gage Ellis > 02/11/20 [id number]
== END ==
LOC: M RAD 09:33
PROVIDERS: ATTEND Internal Medicine Medical Oncology
DX: C34.90 Malignant neoplasm of unspecified part of unspecified bronchus or lung (principal)
CPT/HCPCS: 71260; 74177; Q9963; Q9967

== ENCOUNTER → 2020-03-31 | Outpatient (REF) | payer MEDICARE, OTHER ==
[~2020-03-31] MED LIST changes: -GASTROGRAFIN SOLUTION 30ML (Q9963) As Ordered ONE; -ISOVUE-370 76% 100ML VIAL As Ordered ONE
== END ==
LOC: M LAB REF 13:15
PROVIDERS: ATTEND Internal Medicine
DX: I48.91 Unspecified atrial fibrillation (principal)

== ENCOUNTER → 2020-04-23 | Outpatient (CLI) | payer MEDICARE, OTHER ==
[~2020-04-23] MED LIST changes: +CEPH500T PO; +GASTROGRAFIN SOLUTION 30ML (Q9963) As Ordered ONE; +ISOVUE-370 76% 100ML VIAL As Ordered ONE
--- NOTE | 2020-04-23 18:33 | REP ---
INDICATION: LUNG CA. COMPARISON: 02/11/2020. TECHNIQUE: CT chest performed following the intravenous administration of 100 cc of Isovue 370. Sagittal and coronal reconstruction images are performed. FINDINGS: Lungs: Interstitial opacities are visualized in the right middle lobe and lower lobes, increased since the prior exam. Mediastinum: No adenopathy. Nydia: No adenopathy. Axilla: No adenopathy. Pleura: There is mild loculated pleural fluid inferiorly on the right essentially unchanged. There is a moderate left pleural effusion which has increased since the prior exam. Heart: Not enlarged. Mild right pericardial fluid is unchanged. Thoracic aorta: No aneurysm or dissection. Visualized osseous structures: There are degenerative changes of the spine without compression deformity. IMPRESSION: Mild increased interstitial opacities in the right middle and lower lobes when compared to the prior exam. Loculated pleural fluid in the posterior right costophrenic sulcus is unchanged. Moderate left pleural effusion has increased since the prior study. <Electronically signed by Bishop Gordon > 04/23/20 [id number]
--- NOTE | 2020-04-23 18:41 | REP ---
INDICATION: LUNG CA COMPARISON: None. TECHNIQUE: 02/11/2020. FINDINGS: Liver: Normal Gallbladder: Unremarkable. Spleen: Normal. Adrenals: There is mild stable thickening of the adrenal glands without evidence of adrenal mass. Pancreas: Normal. Kidneys: There is mild cortical atrophy bilaterally without mass or hydronephrosis. Small and large bowel: Unremarkable. Free fluid: None. Abdominal aorta: No aneurysm or dissection. Adenopathy: None. Appendix: Not inflamed. Osseous structures: There are degenerative changes of the spine without compression deformity. There are bilateral hip prostheses present. Pelvis: No gross mass. Pelvic structures not optimally visualized due to artifact from the hip prostheses. There is diastasis of the rectus muscles. IMPRESSION: Stable exam. No acute findings. No mass or adenopathy. <Electronically signed by Bishop Gordon > 04/23/20 [id number]
== END ==
LOC: M RAD 15:50
PROVIDERS: ATTEND Internal Medicine Medical Oncology
DX: C34.90 Malignant neoplasm of unspecified part of unspecified bronchus or lung (principal); J90 Pleural effusion, not elsewhere classified
CPT/HCPCS: 71260; 74177; Q9963; Q9967

== ENCOUNTER → 2020-05-06 | Outpatient (CLI) | payer MEDICARE, OTHER ==
[~2020-05-06] MED LIST changes: -GASTROGRAFIN SOLUTION 30ML (Q9963) As Ordered ONE; -ISOVUE-370 76% 100ML VIAL As Ordered ONE; +SODIUM BICARBONATE 8.4% INJ 50MEQ 50 ML VIAL As Ordered ONE
--- NOTE | 2020-05-06 13:37 | REP ---
INDICATION: POST LEFT THORA, 2 VIEW. COMPARISON: Comparison chest x-ray 12/19/2019.. TECHNIQUE: PA and lateral views of the chest. FINDINGS: Patient is status post left thoracentesis. Left pleural angles are sharp. There is no evidence of pneumothorax or other complication. There is blunting of the right pleural angle. Cardiomegaly is observed. The Njwbyq-K-Sugg catheter has been removed in the interval since the prior study. IMPRESSION: No complication is seen. <Electronically signed by Yemi Mota > 05/06/20 [id number]
[2020-05-06 15:15] VITALS: BP 112/73
--- NOTE | 2020-05-06 16:07 | REP ---
INDICATION: LT PLEURAL EFFUSTION The patient has a history of left pleural effusion COMPARISON: None. TECHNIQUE: The procedure was performed by Erica Tello RUST, under the direct supervision of Dr. Mota The risks and benefits of the procedure were explained to the patient and an informed consent was obtained both verbally and written. Directly prior to the start of the procedure a formal time-out was completed in the procedure room. Pleural fluid in left lung zone was localized using ultrasound guidance. The skin was prepped and draped in a sterile fashion. Six ML of buffered lidocaine was used as a local anesthetic. Using ultrasound guidance an 8-Ukrainian multi side-hole catheter was inserted using trocar technique. FINDINGS: Six hundred ten mL of yellow colored fluid was withdrawn and sent to the laboratory for further analysis. The patient tolerated the procedure well and there were no immediate complications. After the appropriate amount of monitored convalescence, the patient was discharged from the department. IMPRESSION: Ultrasound-guided thoracentesis with removal of 610 mL of pleural fluid. <Electronically signed by Erica Tello > 05/06/20 1535 <Electronically signed by Yemi Mota > 05/06/20 1601
== END ==
LOC: M IRPRO 11:33
PROVIDERS: ATTEND Internal Medicine Medical Oncology
DX: J90 Pleural effusion, not elsewhere classified (principal)

== ENCOUNTER → 2020-05-13 | Outpatient (CLI) | payer MEDICARE, OTHER ==
[~2020-05-13] MED LIST changes: -SODIUM BICARBONATE 8.4% INJ 50MEQ 50 ML VIAL As Ordered ONE
--- NOTE | 2020-05-13 15:09 | REP ---
INDICATION: LUNG CA, DYSPNEA COMPARISON: 05/06/2020. TECHNIQUE: PA/Lateral FINDINGS: Pleural and parenchymal opacity in the right lung base is stable. There is a small left pleural effusion. There is some minor patchy parenchymal opacity in the left lung base. Heart mediastinum are unchanged. There are diffuse degenerative changes of the spine. IMPRESSION: Compared to the prior study of 05/06/2020 there is no change in the pleural and parenchymal opacity in the right lung base. There is a new small left effusion with some very mild patchy parenchymal opacity in the adjacent left lung base. <Electronically signed by Bishop Gordon > 05/13/20 [id number]
== END ==
LOC: M RAD 14:41
PROVIDERS: ATTEND Internal Medicine Medical Oncology
DX: J90 Pleural effusion, not elsewhere classified (principal); C34.91 Malignant neoplasm of unspecified part of right bronchus or lung; R06.00 Dyspnea, unspecified

== ENCOUNTER → 2020-06-11 | Outpatient (REF) | payer MEDICARE, OTHER | LOC: M LAB REF 16:03 | PROVIDERS: ATTEND Physician Assistant Medical | DX: R22.30 Localized swelling, mass and lump, unspecified upper limb (principal) ==

== ENCOUNTER → 2020-06-14 | Outpatient (CLI) | payer MEDICARE, OTHER ==
[~2020-06-14] MED LIST changes: +GASTROGRAFIN SOLUTION 30ML (Q9963) As Ordered ONE; +ISOVUE-370 76% 100ML VIAL As Ordered ONE
--- NOTE | 2020-06-14 11:46 | REP ---
INDICATION: F/U LUNG CA COMPARISON: 04/23/2020 TECHNIQUE: Axial contrast enhanced images from the thoracic inlet to the upper abdomen using 100 ml Isovue 370 intravenous contrast material. This CT examination was performed using the following dose reduction techniques: Automated exposure control, adjustment of mA and/or kv according to the patient's size, and use of iterative reconstruction technique. FINDINGS: Moderate left pleural effusion and left lower lobe atelectasis along with chronic ill-defined interstitial and alveolar changes at the right base with scarring and mild bronchiectasis appears essentially unchanged. No new acute consolidation or nodule/mass lesion identified. Tracheobronchial tree is patent. No obvious mediastinal or hilar adenopathy noted. Further evaluation of the mediastinum demonstrates stable thoracic aorta, pulmonary vasculature, and heart/pericardium. Mild cardiomegaly along with atherosclerotic changes to the coronary arteries again noted with small pericardial fluid. Musculoskeletal structures demonstrate degenerative changes without acute osseous abnormality. IMPRESSION: Chronic stable changes including moderate left pleural effusion with left basilar atelectasis and chronic appearing interstitial and parenchymal changes to the right lung base. No new acute process appreciated. <Electronically signed by Mac Perkins > 06/14/20 [id number]
--- NOTE | 2020-06-14 11:59 | REP ---
INDICATION: F/U LUNG CA. COMPARISON: 04/23/2020 TECHNIQUE: Axial contrast-enhanced images from the lung bases to the pubic symphysis using oral and 100 cc Isovue 370 intravenous contrast material. Coronal and sagittal reformations obtained along with metallic artifact reduction sequence through the pelvis. This CT examination was performed using the following dose reduction techniques: Automated exposure control, adjustment of mA and/or kv according to the patient's size, and the use of iterative reconstruction technique. FINDINGS: Liver, spleen, pancreas, gallbladder, bilateral adrenal glands and kidneys are stable and essentially normal. The enteric system demonstrates moderate fecal stasis. No bowel obstruction or acute inflammatory process noted. Normal terminal ileum and appendix identified in the right lower quadrant. Scattered colonic diverticula are appreciated along with evidence for prior partial sigmoid resection/anastomosis. No acute diverticulitis.. Evaluation of the pelvis is limited by metallic artifact despite reduction algorithm techniques. Visualized bladder demonstrates chronic wall thickening possibly related to underlying outlet obstruction. The prostate gland is upper limits of normal in size with mass effect on the base of the bladder. No evidence for ascites. No obvious intraperitoneal or retroperitoneal adenopathy. No obvious focal abdominopelvic mass lesion. Atherosclerotic changes to the aorta and vasculature noted without aneurysm or dissection. Osseous structures demonstrate degenerative changes without acute focal abnormality. IMPRESSION: 1. No evidence for malignancy or metastatic disease noted. 2. Chronic stable changes as described above. 3. No ascites, significant adenopathy, or focal inflammatory stranding appreciated. <Electronically signed by Mac Perkins > 06/14/20 [id number]
== END ==
LOC: M RAD 09:13
PROVIDERS: ATTEND Internal Medicine Medical Oncology
DX: C34.90 Malignant neoplasm of unspecified part of unspecified bronchus or lung (principal)
CPT/HCPCS: 71260; 74177; Q9963; Q9967

== ENCOUNTER → 2020-07-05 | Outpatient (REF) | payer MEDICARE, OTHER ==
[~2020-07-05] MED LIST changes: -GASTROGRAFIN SOLUTION 30ML (Q9963) As Ordered ONE; -ISOVUE-370 76% 100ML VIAL As Ordered ONE
== END ==
LOC: M LAB REF 16:39
PROVIDERS: ATTEND Internal Medicine
DX: I50.32 Chronic diastolic (congestive) heart failure (principal)

== ENCOUNTER → 2020-07-06 | Outpatient (CLI) | payer MEDICARE, OTHER ==
--- NOTE | 2020-07-06 15:01 | REP ---
INDICATION: PAIN AND SWELLING. COMPARISON: None. TECHNIQUE: Four views FINDINGS: There is soft tissue swelling about all of the digits. Narrowing at the DIP joint of the 4th digit with some erosive changes and narrowing at the 3rd DIP joint with a few mm of radial subluxation. There is narrowing at the 5th DIP joint few mm of ulnar subluxation marginal osteophytes at all of these levels. Is erosion with an overhanging edge along the radial margin of the middle phalanx at the PIP joint of the 3rd digit and dorsally and along the ulnar aspect of that same bone and the proximal phalanx of the 4th digit in the same location within erosion an overhanging edge. Degenerative changes at the PIP joint of the 4th digit without erosions noted thumb IP and MCP joints with minor changes as are the carpal bones and the radiocarpal joint. Distal ulna with a few cystic changes. No evidence of acute fracture. There is 1 soft tissue calcification dorsal soft tissues of the hand on the lateral view. There is diffuse soft tissue swelling over the dorsal aspect of the wrist and MCP joints. IMPRESSION: Polyarticular arthritic change with multiple joints with joint space narrowing and spurring but with lucencies and overhanging edges on both sides of the PIP joint of the 3rd digit and the distal end of the proximal phalanx at the 4th PIP joint and these erosions may suggest a gouty origin. No adjacent abnormal soft tissue calcification noted. No demineralization of the bones. No acute fracture. <Electronically signed by Gage Ellis > 07/06/20 1145
== END ==
LOC: M WUC 13:00
PROVIDERS: ATTEND Internal Medicine
DX: M15.9 Polyosteoarthritis, unspecified (principal); M79.89 Other specified soft tissue disorders

== ENCOUNTER → 2020-07-08 | Outpatient (CLI) | payer MEDICARE, OTHER ==
[~2020-07-08] MED LIST changes: +BISO5TAB14; +PRED20TA
== END ==
LOC: M LABSMTC 12:46
PROVIDERS: ATTEND Anesthesiology
DX: Z20.818 Contact with and (suspected) exposure to other bacterial communicable diseases (principal); Z20.822 Contact with and (suspected) exposure to COVID-19

== ENCOUNTER 2020-07-13 11:36 | Day surgery (SDC) | payer MEDICARE, OTHER ==
[~2020-07-13] VITALS: Ht 165.1 cm; Wt 88.0 kg
[2020-07-13 12:31] LABS: HEMATOCRIT 43.7 % (42.0-52.0); HEMOGLOBIN 13.4 g/dl (13.5-17.5); MEAN CORPUSCULAR HGB CONC 30.7 g/dl (32.0-36.5); MEAN CORPUSCULAR VOLUME 78.2 fl (80.0-96.0); PLATELET COUNT, AUTOMATED 317 10^3/uL (150-450); RED BLOOD COUNT 5.59 10^6/uL (4.30-6.10)
[2020-07-13 12:40] LABS: INR 1.12; PROTHROMBIN TIME 14.6 SECONDS (12.5-14.3)
[2020-07-13 12:41] LABS: PARTIAL THROMBOPLASTIN TIME 26.6 SECONDS (24.2-38.5)
[2020-07-13 13:04] LABS: ALBUMIN 3.3 GM/DL (3.2-5.2); ALT/SGPT 29 U/L (12-78); BILIRUBIN,TOTAL 0.2 MG/DL (0.2-1.0); BLOOD UREA NITROGEN 42 MG/DL (7-18); CALCIUM LEVEL 9.4 MG/DL (8.8-10.2); CARBON DIOXIDE LEVEL 36 MEQ/L (21-32); CHLORIDE LEVEL 99 MEQ/L (98-107); CREATININE FOR GFR 1.06 MG/DL (0.70-1.30); GLOMERULAR FILTRATION RATE > 60.0 (>42); GLUCOSE, FASTING 115 MG/DL (70-100); LDH LACTATE DEHYDROGENASE 130 U/L (87-241); POTASSIUM SERUM 4.1 MEQ/L (3.5-5.1); SODIUM LEVEL 139 MEQ/L (136-145); TOTAL PROTEIN 6.9 GM/DL (6.4-8.2)
[2020-07-13 13:15] VITALS: BP 107/70
[2020-07-13 13:33] LABS: PH BODY FLUID 7.794 UNITS (NOT ESTABLISHED); SOURCE, BODY FLUID pH PLEURAL
--- NOTE | 2020-07-13 13:37 | RO ---
OPERATIVE NOTE DATE OF OPERATION: 07/13/2020 PREOPERATIVE DIAGNOSIS: Left pleural effusion. POSTOPERATIVE DIAGNOSIS: Left pleural effusion. FINDINGS: Under ultrasound, the largest fluid collection was identified, approximately 500 mL, and skin was marked. PROCEDURE: Left diagnostic thoracentesis. SURGEON: Dr. Dickerson TRASH MAN: None. SPECIMENS: Obtained for cytology, amylase, lactic dehydrogenase (LDH), pH, total protein, cell count, acid-fast bacillus (AFB) culture, anaerobic/aerobic culture and sensitivity, and fungal culture. ANESTHESIA: No general anesthesia. Only topical anesthesia in form of 1% lidocaine without epinephrine at 10 mL. ESTIMATED BLOOD LOSS: Less than 5 mL. TOTAL PLEURAL FLUID REMOVED: 660 mL. DESCRIPTION OF PROCEDURE: Patient was placed in the sitting position. The left posterior thorax was ultrasounded, and the largest fluid collection was marked. Patient was prepped and draped in a sterile manner with chlorhexidine and a sterile drape. Time-out was then performed, identifying correct site, correct procedure, correct side with two patient identifiers. Then 1% lidocaine was introduced subcutaneously down to the level of the pleura. Upon entering the pleura there was return of clear, yellow fluid. The needle was then removed. A chastity in the skin was made with a scalpel. The Arrow trocar was then advanced into the pleural space. The catheter was then advanced over the needle, and the trocar was removed. A total of 660 mL of orange-yellow turbid fluid was removed. Procedure was stopped due to decreased return of fluid. The catheter was withdrawn on exhalation. There were no observed complications. Patient was instructed to resume Xarelto. CANDELARIA
[2020-07-13 13:41] LABS: APPEARANCE, BODY FLUID CLEAR (CLEAR); SOURCE, BODY FLUID PLEURAL
[2020-07-13 13:42] LABS: PLEURAL FL COLOR AMBER (COLORLESS)
--- NOTE | 2020-07-13 13:45 | REP ---
INDICATION: S/P THORACENTESIS. COMPARISON: PA and lateral chest dated 05/13/[address] dated 06/14/2020 TECHNIQUE: Portable AP chest with the patient sitting. FINDINGS: There is thickening of the pleura along the right lateral chest wall and effacement of the right costophrenic angle, unchanged. The lung allred are otherwise clear and unchanged. There is cardiomegaly, unchanged. There is no pneumothorax. The mary and mediastinum are unremarkable. There is advanced bilateral shoulder osteoarthritis, unchanged. IMPRESSION: There is no pneumothorax. There is no focal infiltrate. There is pleural thickening along the right lateral chest wall and effacement of the right costophrenic angle, unchanged from the comparison study. <Electronically signed by Bishop Biggs > 07/13/20 [id number]
[2020-07-13 14:02] LABS: AMYLASE, BODY FLUID 45 U/L (NOT ESTABLISHED); LDH, BODY FLUID 62 U/L (NOT ESTABLISHED); SOURCE, BODY FLUID AMYLASE PLEURAL; SOURCE, BODY FLUID GLUCOSE PLEURAL; SOURCE, BODY FLUID LDH PLEURAL; SOURCE, BODY FLUID TOT PROTEIN PLEURAL; TOTAL PROTEIN, BODY FLUID 3.9 G/DL (NOT ESTABLISHED)
== END 2020-07-13 13:32 | disposition home or self-care (01) ==
LOC: M OPP 11:36
PROVIDERS: ATTEND Internal Medicine Pulmonary Disease
DX: R84.6 Abnormal cytological findings in specimens from respiratory organs and thorax (principal); C34.11 Malignant neoplasm of upper lobe, right bronchus or lung; J44.9 Chronic obstructive pulmonary disease, unspecified; J90 Pleural effusion, not elsewhere classified; R06.00 Dyspnea, unspecified

== ENCOUNTER → 2020-08-23 | Outpatient (CLI) | payer MEDICARE, OTHER ==
[~2020-08-23] MED LIST changes: -BISO5TAB14; +BISO5TAB14 PO; +COVI100V IM; +LIDO1CRE42 TOP; -LIDO2.5C15 TOP
== END ==
LOC: M PLARAD 07:38
PROVIDERS: ATTEND Internal Medicine Medical Oncology
DX: Z53.8 Procedure and treatment not carried out for other reasons (principal)

== ENCOUNTER → 2020-08-25 | Outpatient (CLI) | payer MEDICARE, OTHER ==
--- NOTE | 2020-08-25 11:39 | REPPI ---
INDICATION: J90 PLEURAL EFFUSION. COMPARISON: 07/13/2020 the latest prior TECHNIQUE: Two views FINDINGS: Cardiomediastinal silhouette is unchanged. There is cardiomegaly. The right basilar opacity seen previously is unchanged. There is a new left basilar opacity silhouetting out the diaphragmatic surface of the left lung with CP angle blunting. There is no change in the osseous structures. IMPRESSION: New left lung base opacity consistent with an effusion. Certainly, concomitant atelectasis cannot be ruled out. <Electronically signed by Umberto Pichardo > 08/25/20 [id number]
== END ==
LOC: M PLAIMG 09:53
PROVIDERS: ATTEND Internal Medicine Pulmonary Disease
DX: J90 Pleural effusion, not elsewhere classified (principal)

== ENCOUNTER → 2020-09-07 | Outpatient (REF) | payer MEDICARE, OTHER ==
[2020-09-07 18:30] LABS: C REACTIVE PROTEIN QUANTITATIV 2.54 MG/DL (0.00-0.30); URIC ACID 7.3 MG/DL (3.5-7.2)
== END ==
LOC: M LAB REF 17:08
PROVIDERS: ATTEND Internal Medicine
DX: M10.041 Idiopathic gout, right hand (principal); M25.559 Pain in unspecified hip

== ENCOUNTER → 2020-09-13 | Outpatient (CLI) | payer MEDICARE, OTHER ==
--- NOTE | 2020-09-14 09:15 | REP ---
INDICATION: RESTAGING RIGHT LUNG CANCER C34.81. Patient has a history of stage IV adenocarcinoma of the lung who presented with a dominant right hilar mass and malignant right pleural effusion. Patient has known mediastinal adenopathy. By history, the patient has finished his last chemotherapeutic regimen 04/28/2020. On 07/13/2020 patient underwent left-sided thoracentesis which showed cellular atypia COMPARISON: Multiple the latest 08/05/2019 TECHNIQUE: After the intravenous administration of 8.93 mCi of FDG 18 triplane whole-body PET-CT was performed from the skull base to the mid thigh. FINDINGS: Once again, there is right-sided supraclavicular hypermetabolic activity with a maximal SUV value of 4.62. This is in the same region as that seen on the prior exam. In addition, there is now contralateral hypermetabolic activity at the same level with a maximal SUV value of 3.28. This hypermetabolic activity is seen within nonenlarged but morphologically altered lymph nodes. Once again, there is hypermetabolic activity seen in the right paramediastinal region with a maximal SUV value of 4.02. This abuts the esophagus as on the prior study and although not significantly changed in size it is round in morphology without a reniform shape or central fatty hilum. There is a new focus of hypermetabolic activity seen in the right upper lobe region and pleural based with a maximal SUV value of 2.68. More inferiorly in the right lower lobe there is extensive pleural hypermetabolic activity the appearance of which has significantly increased from the prior exam and having a wide range of varying degrees of hypermetabolism from 2.56-4.21. There is a left pleural effusion and evidence of a loculated right pleural fluid collection. There is significant artifact seen in the pelvis secondary to bilateral hip prostheses. There is hypermetabolic activity seen at the L5-S1 level on the right posteriorly including not only portions of the facet region but the right posterior vertebral body and both sides of the right sacroiliac region. This has significantly high SUV values up to maximal of 13.48 and represents a significant change from the prior exam. On CT, there is evidence of posterior cortical sacral lysis and a small soft tissue component also representing a change from the prior exam. There are other areas of marrow hypermetabolism but these areas cannot be differentiated from chemotherapeutic change. On the left at the L5-S1 level and into the 1st sacral segment hypermetabolism is again identified with maximal SUV value of 6.0. This also represents a change from the prior exam. No other areas of frankly abnormal hypermetabolic activity are seen in the neck, chest, abdomen, or pelvis. IMPRESSION: 1. New areas of abnormal hypermetabolism seen in the chest and consistent with worsening/metastatic disease as described above. 2. Evidence of skeletal metastasis as described above. 3. Other findings discussed in detail above. <Electronically signed by Umberto Pichardo > 09/14/20 0974
== END ==
LOC: M PLARAD 12:46
PROVIDERS: ATTEND Internal Medicine Medical Oncology
DX: C34.81 Malignant neoplasm of overlapping sites of right bronchus and lung (principal)
CPT/HCPCS: 78815; A9552

== ENCOUNTER 2020-10-19 15:00 | Inpatient (IN) | payer MEDICARE, OTHER ==
[~2020-10-19] VITALS: Ht 175.3 cm; Wt 88.9 kg
[~2020-10-19 15:00] MED LIST changes: +ALLO100T PO
--- NOTE | 2020-10-19 15:38 | REP ---
INDICATION: DYSPNEA/COUGH. COMPARISON: Multiple the latest 08/25/2020 TECHNIQUE: Portable FINDINGS: The technique utilized in obtaining the radiograph has magnified the cardiac silhouette and accentuated the interstitial markings. There is global cardiomegaly accentuated by technique. There are patchy right basilar opacities which have increased from the prior exam. Chronic left basilar changes are also noted but these too have increased from the prior exam. The diaphragmatic surface of the left lung is silhouetted out. Chronic changes seen involving the imaged osseous structures. IMPRESSION: Cardiomegaly and worsened bibasilar opacities. <Electronically signed by Umberto Pichardo > 10/19/20 1550
[2020-10-19 16:24] LABS: BASO % 0.4 % (0.0-1.0); EOS % 0.9 % (0.0-3.0); HEMATOCRIT 30.2 % (42.0-52.0); HEMOGLOBIN 9.7 g/dl (13.5-17.5); LYMPH # 0.3 10^3/uL (1.5-5.0); LYMPH % 6.1 % (24.0-44.0); MEAN CORPUSCULAR HEMOGLOBIN 26.3 pg (27.0-33.0); MEAN CORPUSCULAR HGB CONC 32.1 g/dl (32.0-36.5); MEAN CORPUSCULAR VOLUME 81.8 fl (80.0-96.0); MONO # 0.2 10^3/uL (0.0-0.8); NEUTROPHILS % 86.1 % (36.0-66.0); PLATELET COUNT, AUTOMATED 175 10^3/uL (150-450); RED BLOOD COUNT 3.69 10^6/uL (4.30-6.10); WHITE BLOOD COUNT 4.6 10^3/uL (4.0-10.0)
[2020-10-19 16:34] LABS: INR 1.83; PROTHROMBIN TIME 21.6 SECONDS (12.5-14.3)
[2020-10-19 16:35] LABS: PARTIAL THROMBOPLASTIN TIME 40.7 SECONDS (24.2-38.5)
[2020-10-19 17:12] LABS: ALBUMIN 2.2 GM/DL (3.2-5.2); ALT/SGPT 25 U/L (12-78); BILIRUBIN,DIRECT 0.2 MG/DL (0.0-0.2); BILIRUBIN,TOTAL 0.4 MG/DL (0.2-1.0); BLOOD UREA NITROGEN 29 MG/DL (7-18); CARBON DIOXIDE LEVEL 29 MEQ/L (21-32); CHLORIDE LEVEL 102 MEQ/L (98-107); CK-MB VALUE MASS 1.2 NG/ML (<3.6); CPK CREATINE PHOSPHOKINASE 50 U/L (39-308); CREATININE FOR GFR 0.84 MG/DL (0.70-1.30); GLOMERULAR FILTRATION RATE > 60.0 (>42); GLUCOSE, FASTING 90 MG/DL (70-100); NT-PRO BNP 2852 PG/ML (<450); POTASSIUM SERUM 3.9 MEQ/L (3.5-5.1); SODIUM LEVEL 140 MEQ/L (136-145); TROPONIN I < 0.02 NG/ML (< 0.10)
--- NOTE | 2020-10-19 17:24 | ECGEPIP ---
[facility] - ED Test Date: 2020-10-19 Pat Name: DELL DAMON Department: Room: - Gender: Male Inside Wireman: : 1945 Requested By: ARSENIO BLANDON Order Number: [id number] Reading MD: Memo Alcaraz Measurements Intervals [place] Rate: 68 P: DE: QRS: 18 QRSD: 96 T: 8 QT: 416 QTc: 442 Interpretive Statements Atrial fibrillation Incomplete right bundle branch block RATE CHANGE COMPARED TO 11/30/18 Electronically Signed on 10-19-2020 17:24:12 EDT by Memo Alcaraz
[2020-10-19] MEDS ORDERED: FUROSEMIDE 40MG/4ML VIAL (J1940) IV ONE (17:30)
[2020-10-19] MEDS ORDERED: MAALOX 30 ML SUSP *UDC PO PRN (18:00)
[2020-10-19] MEDS ORDERED: HEPARIN SOD (PORCINE) 5000UNITS/ML 1ML VIAL/SYRINGE SC SCH (18:00)
[2020-10-19] MEDS ORDERED: ACETAMINOPHEN TAB 650MG DOSE (2X325MG) PO PRN (18:00)
[2020-10-19] MEDS ORDERED: MOM 30ML SUSPENSION UDC PO PRN (18:00)
[2020-10-19] MEDS ORDERED: IPRATROPIUM 0.5MG/ALBUTEROL 2.5MG INH SOL UD 3ML (DUONEB) NEB PRN (18:10)
--- NOTE | 2020-10-19 18:21 | HPEPDOC ---
General Date of Admission Date of Service: Oct 19, 2020 Primary Care Physician: BRITTANY NUR DO Attending Physician: ADRIÁN WILKINS MD Chief Complaint The patient is a 75-year-old male admitted with a reason for visit of Weakness. Source: Patient Exam Limitations: No limitations Timing/Duration: Other (Few days) History of Present Illness This is 75 years old male with past medical history of 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 fib atrial fibrillation, hypertension, diastolic heart failure, bilateral total hip replacement, left total knee replacement and multiple colovesical surgeries was sent from a oncology clinic with increasing shortness of breath and weight gains of 7 pounds from last week patient also was found hypotensive there 8 with a blood pressure of 85/50 at the cancer treatment center his last chemotherapy was 10/13/2019 . Patient complaining of shortness of breath mostly on exertion but also at rest swelling on his both lower extremities, increased weight gain but no chest pain nausea vomiting or abdominal pain. Patient being admitted with possible CHF with weight gain and bilateral lower extremities edema. Home Medications Scheduled Allopurinol (Allopurinol) 100 Mg Tablet, 200 MG PO DAILY, (Reported) Bifidobacterium Infantis (Align) 4 Mg Cap, 4 MG PO DAILY, (Reported) Bisoprolol Fumarate (Bisoprolol Fumarate) 5 Mg Tablet, 5 MG PO QPM, (Reported) Bisoprolol Fumarate (Bisoprolol Fumarate) 10 Mg Tablet, 10 MG PO DAILY, (Report ed) Colchicine (Colchicine) 0.6 Mg Tablet, 0.6 MG PO DAILY, (Reported) Digoxin (Digoxin) 125 Mcg Tablet, 125 MCG PO DAILY, (Reported) Docusate Sodium (Stool Softener) 100 Mg Capsule, 200 MG PO DAILY, (Reported) Fluticasone/Umeclidin/Vilanter (Trelegy Ellipta 100-62.5-25) 1 Each Blst.w.dev, 1 PUFF INH DAILY, (Reported) Multivitamins (Thera M Plus Tablet) 1 Tab Tab, 1 TAB PO DAILY, (Reported) Rivaroxaban (Xarelto) 20 Mg Tab, 20 MG PO QHS, (Reported) Spironolactone (Spironolactone) 25 Mg Tablet, 12.5 MG PO DAILY, (Reported) Torsemide (Torsemide) 20 Mg Tablet, 40 MG PO BID, (Reported) TAKES AM/1600 Scheduled PRN Albuterol Sulf (Albuterol Sulfate) 2.5 Mg/3 Ml Vial.neb, 2.5 MG INH Q6H PRN for SOB/WHEEZING, (Reported) Allergies Coded Allergies: No Known Allergies (Unverified , 04/23/18) Past Medical History Medical History Adenocarcinoma of right lung, A. fib, hypertension, colovesical fistula, history of CHF Surgical History Multiple surgery for colovesical fistula, bilateral total hip replacement, left total knee replacement Social History Alcohol: Denies Drugs: denies A-FIB/CHADSVASC A-FIB History Current/History of A-Fib/PAF?: Yes Current PO Anticoag Therapy: Yes Review of Systems Constitutional: Denies: Chills, Fever, Malaise, Night Sweats, Weakness, Fatigue, Weight Loss, Lethargy, Other Eyes: Denies: Pain, Vision change, Conjunctivae inflammation, Eyelid inflammation, Redness, Other ENT: Denies: Head Aches, Ear Pain, Dysphagia, Sinus Congestion, Post Nasal Drip, Sore Throat, Epistaxis, Other Symptoms Skin: Denies: Rash, Lesions, Jaundice, Bruising, Itching, Dry, Breakdown, Nail Changes, Other Pulmonary: Reports: Dyspnea Cardiovascular: Denies: Chest Pain, Palpitations, Orthopnea, Paroxysmal Noc. Dyspnea, Edema, Lt Headedness, Other Symptoms Gastrointestinal: Denies: Nausea, Vomiting, Abdominal Pain, Diarrhea, Constipation, Melena, Hematochezia, Other Symptoms Hematologic: Denies: Bruising, Bleeding Excessively, Petecchia, Purpura, Enlarged Lymph Nodes, Other Hematologic Endocrine: Denies: Polydipsia, Polyphagia, Polyuria, Heat Intolerance, Cold Intolerance, Other Endocrine Sx Musculoskeletal: Reports: Other Symptoms (Bipedal edema) Neurological: Denies: Weakness, Numbness, Incoordination, Change in speech, Confusion, Seizures, Other Symptoms Psych: Denies: Mood Normal, Anxiety, Depression, Memory Issues, Thoughts of Self Harm, Anger, Thoughts of Harming Other, Other Psych Physical Examination General Exam: Positive: Alert, Cooperative Eye Exam: Positive: PERRLA, Conjunctiva & lids normal ENT Exam: Positive: Atraumatic Neck Exam: Positive: Supple Chest Exam: Positive: Other (Bilateral crackles and rales audible with diminished breath sounds bilaterally) Heart Exam: Positive: Other (Irregular S1-S2 audible diminished heart sounds) Telemetry: Positive: Atrial fibrillation Abdomen Exam: Positive: Normal bowel sounds, Soft Extremity Exam: Positive: Other (2+ bipedal edema) Skin Exam: Positive: Nl turgor and temperature Neuro Exam: Positive: Other (No focal motor or sensory deficit) Psych Exam: Positive: Mental status NL, Mood NL Vital Signs Vital Signs Date Time Temp Pulse Resp B/P (MAP) Pulse Ox O2 Delivery O2 Flow Rate FiO2 10/19/20 16:17 Room Air 10/19/20 16:15 75 17 109/66 (80) 98 10/19/20 15:07 97.5 Laboratory Data Labs 24H Laboratory Tests 2 10/19/20 15:17: Immature Granulocyte % (Auto) 1.5, Neutrophils (%) (Auto) 86.1H, Lymphocytes (%) (Auto) 6.1L, Monocytes (%) (Auto) 5.0, Eosinophils (%) (Auto) 0.9, Basophils (%) (Auto) 0.4, Neutrophils # (Auto) 4.0, Lymphocytes # (Auto) 0.3L, Monocytes # (Auto) 0.2, Eosinophils # (Auto) 0.0, Basophils # (Auto) 0.0, Nucleated Red Blood Cells % (auto) 0.9H, Prothrombin Time 21.6H, Prothromb Time International Ratio 1.83, Activated Partial Thromboplast Time 40.7H, Anion Gap 9, Glomerular Filtration Rate > 60.0, Calcium Level 7.0L, Total Bilirubin 0.4, Direct Bilirubin 0.2, Aspartate Amino Transf (AST/SGOT) 30, Alanine Aminotransferase (ALT/SGPT) 25, Alkaline Phosphatase 96, Total Creatine Kinase 50, Creatine Kinase MB 1.2, Creatine Kinase MB Relative Index 2.40, Troponin I < 0.02, NT-Pro -B-Type Natriuretic Peptide 2852H, Total Protein 6.0L, Albumin 2.2L, Albumin/Globulin Ratio 0.6, Thyroid Stimulating Hormone (TSH) 1.890, Digoxin Level 1.0 CBC/BMP Laboratory Tests 10/19/20 15:17 Echocardiogram Echo done last year showed normal left ventricle size with EF of 60 to 65% echo was done on 12/19/2019 Problems (1) CHF (congestive heart failure) Status: Acute (2) Shortness of breath Status: Acute (3) Afib Status: Chronic (4) Adenocarcinoma of right lung, stage 4 Status: Chronic Plan / VTE VTE Prophylaxis Ordered?: Yes Plan Plan Patient was seen and examined at the bedside Heart rate 75/min, respirate of 17, blood pressure 109/66, pulse ox 98% Chest x-ray shows cardiomegaly with worsening bilateral opacities EKG shows A. fib with right bundle branch block Echo done in 12/19/2019 shows normal LV size with EF of 60 to 65% WBC count 4.6, hemoglobin 9.7, hematocrit 30.2 and platelets 175 Electrolytes are normal except BUN 29 creatinine 0.84, BNP 2852, albumin 2.2, INR 1.83 #1 acute diastolic heart failure #2 severe bipedal edema #3 stage IV adenocarcinoma of lung status post chemotherapy recently Admit patient to telemetry unit for inpatient admission Patient received Lasix 40 mg IV x1 I will continue Lasix net negative of 2 L/day for at least 48 hours We will repeat patient's echocardiogram in a.m. CBC CMP serial troponins and BNP and digoxin level in a.m. has been ordered Posey catheter, tube keep an eye on intake and output Daily weight as patient has a 7 pound weight gain since last 1 week Cardiology consult with Dr. Su has been requested for tomorrow morning Continue all patient's home medications which includes digoxin bisoprolol Xarelto spironolactone and allopurinol Saline lock DVT prophylaxis patient already on Xarelto Diet 2 g sodium diet Activity as tolerated Prognosis: Poor Care of plan was discussed with patient and his available at the bedside in the emergency room, they both agreed with the current plan and management. ADRIÁN WILKINS MD Oct 19, 2020 18:21
[2020-10-19] MEDS ORDERED: BISO5TAB14 PO (18:40)
[2020-10-19] MEDS ORDERED: ALBU83IN INH (18:40)
[2020-10-19] MEDS ORDERED: BISO10TA14 PO (18:41)
[2020-10-19] MEDS: RIVAROXABAN 20 MG TAB (XARELTO) PO SCH (19:19)
[2020-10-19] MEDS: FUROSEMIDE 40MG/4ML VIAL (J1940) IV SCH ×2 (20:23→23:46)
[2020-10-19 20:52] LABS: RSV AMPLIFICATION NEGATIVE (NEGATIVE)
[2020-10-19 21:07] LABS: CK-MB VALUE MASS < 1.0 NG/ML (<3.6); CPK CREATINE PHOSPHOKINASE 42 U/L (39-308); MB/CK RELATIVE INDEX 2.38 (< OR =4); TROPONIN I < 0.02 NG/ML (< 0.10)
[2020-10-19] MEDS: DOCUSATE SODIUM 100MG CAPSULE PO SCH (22:50)
[2020-10-19] MEDS: SPIRONOLACTONE 12.5MG PER 1/2 TABLET PO SCH (22:50)
[2020-10-20] MEDS: FUROSEMIDE 40MG/4ML VIAL (J1940) IV SCH ×5 (05:06→21:59)
[2020-10-20 06:29] LABS: HEMATOCRIT 29.3 % (42.0-52.0); HEMOGLOBIN 9.3 g/dl (13.5-17.5); MEAN CORPUSCULAR HEMOGLOBIN 25.8 pg (27.0-33.0); MEAN CORPUSCULAR HGB CONC 31.7 g/dl (32.0-36.5); MEAN CORPUSCULAR VOLUME 81.2 fl (80.0-96.0); PLATELET COUNT, AUTOMATED 173 10^3/uL (150-450); RED BLOOD COUNT 3.61 10^6/uL (4.30-6.10); WHITE BLOOD COUNT 3.6 10^3/uL (4.0-10.0)
[2020-10-20 07:46] LABS: ALT/SGPT 26 U/L (12-78); BILIRUBIN,TOTAL 0.4 MG/DL (0.2-1.0); BLOOD UREA NITROGEN 25 MG/DL (7-18); CARBON DIOXIDE LEVEL 29 MEQ/L (21-32); CHLORIDE LEVEL 103 MEQ/L (98-107); CREATININE FOR GFR 0.82 MG/DL (0.70-1.30); GLOMERULAR FILTRATION RATE > 60.0 (>42); GLUCOSE, FASTING 93 MG/DL (70-100); MAGNESIUM LEVEL 2.1 MG/DL (1.8-2.4); NT-PRO BNP 2089 PG/ML (<450); POTASSIUM SERUM 3.9 MEQ/L (3.5-5.1); SODIUM LEVEL 140 MEQ/L (136-145); TOTAL PROTEIN 5.6 GM/DL (6.4-8.2); TROPONIN I < 0.02 NG/ML (< 0.10)
[2020-10-20] MEDS: DOCUSATE SODIUM 100MG CAPSULE PO SCH ×2 (08:33→20:20)
[2020-10-20] MEDS: allopurinoL 100 MG TAB PO SCH (08:33)
[2020-10-20] MEDS: DIGOXIN 0.125 MG TAB PO SCH (08:33)
--- NOTE | 2020-10-20 11:30 | IPNPDOC ---
Subjective Date Seen The patient was seen on 10/20/20. Subjective Chief Complaint/HPI Patient is feeling slightly better and still has some shortness of breath but improved air exchange, patient has good urinary output General: Denies: ROS Unobtainable, Chills, Night Sweats, Fatigue, Malaise, Normal Appetite, Other Symptoms Constitutional: Denies: Chills, Fever, Malaise, Night Sweats, Weakness, Fatigue, Weight Loss, Lethargy, Other Eyes: Denies: Pain, Vision change, Conjunctivae inflammation, Eyelid inflammation, Redness, Other Skin: Denies: Rash, Lesions, Jaundice, Bruising, Itching, Dry, Breakdown, Nail Changes, Other Pulmonary: Reports: Dyspnea Cardiovascular: Denies: Chest Pain, Palpitations, Orthopnea, Paroxysmal Noc. Dyspnea, Edema, Lt Headedness, Other Symptoms Gastrointestinal: Denies: Nausea, Vomiting, Abdominal Pain, Diarrhea, Constipation, Melena, Hematochezia, Other Symptoms Genitourinary: Denies: Dysuria, Frequency, Incontinence, Hematuria, Retention, Other Symptoms Hematologic: Denies: Bruising, Bleeding Excessively, Petecchia, Purpura, Enlarged Lymph Nodes, Other Hematologic Endocrine: Denies: Polydipsia, Polyphagia, Polyuria, Heat Intolerance, Cold Intolerance, Other Endocrine Sx Musculoskeletal: Reports: Other Symptoms (Bipedal edema) Neurological: Denies: Weakness, Numbness, Incoordination, Change in speech, Confusion, Seizures, Other Symptoms Psych: Denies: Mood Normal, Anxiety, Depression, Memory Issues, Thoughts of Self Harm, Anger, Thoughts of Harming Other, Other Psych Objective Physical Examination General Exam: Positive: Alert, Cooperative Eye Exam: Positive: PERRLA, Conjunctiva & lids normal ENT Exam: Positive: Atraumatic Neck Exam: Positive: Supple Chest Exam: Positive: Other (Bilateral crackles and rales audible with diminished breath sounds bilaterally) Heart Exam: Positive: Other (Irregular S1-S2 audible diminished heart sounds) Telemetry: Positive: Atrial fibrillation Abdomen Exam: Positive: Normal bowel sounds, Soft Extremity Exam: Positive: Other (2+ bipedal edema) Skin Exam: Positive: Nl turgor and temperature Neuro Exam: Positive: Other (No focal motor or sensory deficit) Psych Exam: Positive: Mental status NL, Mood NL Assessment /Plan Problems (1) CHF (congestive heart failure) Status: Acute (2) Shortness of breath Status: Acute (3) Afib Status: Chronic (4) Adenocarcinoma of right lung, stage 4 Status: Chronic Plan/VTE VTE Prophylaxis Ordered?: Yes Plan This is 75 years old male with past medical history of 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 fib atrial fibrillation, hypertension, diastolic heart failure, bilateral total hip replacement, left total knee replacement and multiple colovesical surgeries was sent from a oncology clinic with increasing shortness of breath and weight gains of 7 pounds from last week patient also was found hypotensive there 8 with a blood pressure of 85/50 at the cancer treatment center his last chemotherapy was 10/13/2019 . Patient complaining of shortness of breath mostly on exertion but also at rest swelling on his both lower extremities, increased weight gain but no chest pain nausea vomiting or abdominal pain. Patient being admitted with possible CHF with weight gain and bilateral lower extremities edema. #1 acute diastolic heart failure #2 severe bipedal edema #3 stage IV adenocarcinoma of lung status post chemotherapy recently Admit patient to telemetry unit for inpatient admission Patient responded very well to IV Lasix his total output was about 1 L this morning We will continue net negative Lasix injection to goal of 2 L/day Echocardiogram still pending Serial troponins were negative Monitor intake and output Daily weights Cardiology consult pending Continue all patient's home medications which includes digoxin bisoprolol Xarel to spironolactone and allopurinol DVT prophylaxis patient already on Xarelto Diet 2 g sodium diet As per physical therapy patient was able to ambulate about 20 feet without any problems Patient probably will need IV diuresis for a few days and is symptom-free VS, I&O, 24H, [facility] Vital Signs/I&O Vital Signs Date Time Temp Pulse Resp B/P (MAP) Pulse Ox O2 Delivery O2 Flow Rate FiO2 10/20/20 08:33 79 10/20/20 07:47 96.0 16 109/61 (77) 98 Room Air I&O- Last 24 Hours up to 6 AM 10/20/20 06:00 Output Total 1300 ml Balance -1300 ml Laboratory Data 24H LABS Laboratory Tests 2 10/19/20 15:17: Immature Granulocyte % (Auto) 1.5, Neutrophils (%) (Auto) 86.1H, Lymphocytes (%) (Auto) 6.1L, Monocytes (%) (Auto) 5.0, Eosinophils (%) (Auto) 0.9, Basophils (%) (Auto) 0.4, Neutrophils # (Auto) 4.0, Lymphocytes # (Auto) 0.3L, Monocytes # (Auto) 0.2, Eosinophils # (Auto) 0.0, Basophils # (Auto) 0.0, Nucleated Red Blood Cells % (auto) 0.9H, Prothrombin Time 21.6H, Prothromb Time International Ratio 1.83, Activated Partial Thromboplast Time 40.7H, Anion Gap 9, Glomerular Filtration Rate > 60.0, Calcium Level 7.0L, Total Bilirubin 0.4, Direct Bilirubin 0.2, Aspartate Amino Transf (AST/SGOT) 30, Alanine Aminotransferase (ALT/SGPT) 25, Alkaline Phosphatase 96, Total Creatine Kinase 50, Creatine Kinase MB 1.2, Creatine Kinase MB Relative Index 2.40, Troponin I < 0.02, SL-Lsk-P-Type Natriuretic Peptide 2852H, Total Protein 6.0L, Albumin 2.2L, Albumin/Globulin Ratio 0.6, Thyroid Stimulating Hormone (TSH) 1.890, Digoxin Level 1.0 10/19/20 18:01: Coronavirus (COVID-19)(PCR) NEGATIVE, Influenza Type A (RT-PCR) NEGATIVE, Influenza Type B (RT-PCR) NEGATIVE, Respiratory Syncytial Virus (PCR) NEGATIVE 10/19/20 19:43: Total Creatine Kinase 42, Creatine Kinase MB < 1.0, Creatine Kinase MB Relative Index 2.38, Troponin I < 0.02 10/20/20 01:57: Troponin I < 0.02 10/20/20 06:00: Nucleated Red Blood Cells % (auto) 1.1H, Anion Gap 8, Glomerular Filtration Rate > 60.0, Calcium Level 7.0L, Magnesium Level 2.1, Total Bilirubin 0.4, Aspartate Amino Transf (AST/SGOT) 30, Alanine Aminotransferase (ALT/SGPT) 26, Alkaline Phosphatase 88, Troponin I < 0.02, NB-Buj-P-Type Natriuretic Peptide 2089H, Total Protein 5.6L, Albumin 2.0L, Albumin/Globulin Ratio 0.6 CBC/BMP Laboratory Tests 10/19/20 15:17 10/20/20 06:00 ADRIÁN WILKINS MD Oct 20, 2020 11:29
[2020-10-20] MEDS: bisoproloL fumarate 10 MG TAB PO SCH (12:30)
[2020-10-20 15:49] VITALS: BP 100/61
[2020-10-20 16:00] VITALS: BP 100/61
[2020-10-20] MEDS: RIVAROXABAN 20 MG TAB (XARELTO) PO SCH (18:49)
[2020-10-20] MEDS: SPIRONOLACTONE 12.5MG PER 1/2 TABLET PO SCH (20:20)
[2020-10-20 22:00] VITALS: BP 113/63
[2020-10-21] MEDS: FUROSEMIDE 40MG/4ML VIAL (J1940) IV SCH ×7 (01:31→23:49)
[2020-10-21 06:00] VITALS: BP 113/67
[2020-10-21 06:00] LABS: BASO % 0.3 % (0.0-1.0); HEMATOCRIT 29.6 % (42.0-52.0); HEMOGLOBIN 9.4 g/dl (13.5-17.5); LYMPH # 0.5 10^3/uL (1.5-5.0); MEAN CORPUSCULAR HEMOGLOBIN 25.7 pg (27.0-33.0); MEAN CORPUSCULAR HGB CONC 31.8 g/dl (32.0-36.5); MEAN CORPUSCULAR VOLUME 80.9 fl (80.0-96.0); MONO # 0.3 10^3/uL (0.0-0.8); MONO % 8.4 % (2.0-8.0); NEUTROPHILS % 76.3 % (36.0-66.0); PLATELET COUNT, AUTOMATED 185 10^3/uL (150-450); RED BLOOD COUNT 3.66 10^6/uL (4.30-6.10); WHITE BLOOD COUNT 3.9 10^3/uL (4.0-10.0)
[2020-10-21 06:29] LABS: ALBUMIN 2.2 GM/DL (3.2-5.2); ALT/SGPT 27 U/L (12-78); BILIRUBIN,TOTAL 0.3 MG/DL (0.2-1.0); BLOOD UREA NITROGEN 21 MG/DL (7-18); CALCIUM LEVEL 7.6 MG/DL (8.8-10.2); CARBON DIOXIDE LEVEL 30 MEQ/L (21-32); CHLORIDE LEVEL 103 MEQ/L (98-107); CREATININE FOR GFR 0.82 MG/DL (0.70-1.30); GLOMERULAR FILTRATION RATE > 60.0 (>42); GLUCOSE, FASTING 101 MG/DL (70-100); POTASSIUM SERUM 4.1 MEQ/L (3.5-5.1); SODIUM LEVEL 141 MEQ/L (136-145); TOTAL PROTEIN 5.6 GM/DL (6.4-8.2)
[2020-10-21 08:26] VITALS: BP 102/64
[2020-10-21] MEDS: DIGOXIN 0.125 MG TAB PO SCH (08:30)
[2020-10-21] MEDS: allopurinoL 100 MG TAB PO SCH (08:31)
[2020-10-21] MEDS: DOCUSATE SODIUM 100MG CAPSULE PO SCH ×2 (08:31→21:14)
[2020-10-21] MEDS: bisoproloL fumarate 10 MG TAB PO SCH (08:32)
--- NOTE | 2020-10-21 09:09 | ECHO ---
ECHOCARDIOGRAM DATE OF PROCEDURE: 10/20/2020 Age: 75 Gender: Male Height: 175 cm Weight: 94 kg REFERRING PHYSICIAN: Dr. Ulises Curry PATIENT LOCATION: Room 4236 REASON FOR TESTING: Congestive heart failure MEASUREMENTS: 2D MEASUREMENTS: IVS 1.0 cm LV 5.1 cm LVPW 1.3 cm LA 4.1 cm Aorta 3.7 cm IVC 2.1 cm DOPPLER MEASURMENTS: Peak velocity across the aortic valve 1.2 m/s Peak velocity across the LVOT 0.73 m/s Mitral E 1.1 Maximum tricuspid valve velocity 4.2 m/s 2D COMMENTS: 1. Normal left ventricular size, wall thickness, and low-normal global left ventricular systolic function. The estimated left ventricular systolic ejection fraction is 50-55%. 2. Moderately dilated left atrium. Mildly enlarged right atrium. Normal right ventricle. 3. The atrial septum appeared to be normal without evidence of defect or shunt. 4. Borderline dilated aortic root at 3.7 cm. 5. A small pericardial effusion was noted, no evidence of cardiac tamponade. Left pleural effusion also noted. 6. Mildly calcified aortic valve with normal leaflet excursion. Mildly calcified mitral annulus with normal anterior mitral valve leaflet motion. Normal tricuspid valve and pulmonic valve. The proximal pulmonary artery branches also appeared to be normal. 7. The inferior vena cava is dilated, central venous pressure mildly elevated. Doppler: It detects mild aortic regurgitation, mild mitral regurgitation, moderate tricuspid regurgitation. The calculated pulmonary arterial systolic pressure varies between 65-75 mmHg. Assessment of the left ventricular diastolic function was limited. IMPRESSIONS: 1. A low-normal global left ventricular systolic function. Assessment of the left ventricular diastolic function was limited. 2. Aortic valve sclerosis with mild aortic regurgitation but no aortic stenosis. 3. Mitral annulus calcification with a mildly enlarged left atrium and mild mitral regurgitation. 4. Moderate tricuspid regurgitation with severe pulmonary hypertension and dilated right atrium. 5. A small pericardial effusion was noted, no evidence of cardiac tamponade. Left pleural effusion was noted. 6. Borderline enlarged aortic root at 3.7 cm.
--- NOTE | 2020-10-21 10:58 | IPNPDOC ---
Subjective Date Seen The patient was seen on 10/21/20. Subjective Chief Complaint/HPI Patient is feeling much better decreased bilateral leg swelling decreased shortness of breath General: Denies: ROS Unobtainable, Chills, Night Sweats, Fatigue, Malaise, Normal Appetite, Other Symptoms Constitutional: Denies: Chills, Fever, Malaise, Night Sweats, Weakness, Fatigue, Weight Loss, Lethargy, Other Pulmonary: Denies: Dyspnea, Cough, Pleuritic Chest Pain, Other Symptoms Cardiovascular: Denies: Chest Pain, Palpitations, Orthopnea, Paroxysmal Noc. Dyspnea, Edema, Lt Headedness, Other Symptoms Gastrointestinal: Denies: Nausea, Vomiting, Abdominal Pain, Diarrhea, Constipation, Melena, Hematochezia, Other Symptoms Musculoskeletal: Denies: Neck Pain, Back Pain, Shoulder Pain, Arm Pain, Hand Pain, Leg Pain, Foot Pain, Joint Pain, Muscle Pain, Spasms, Other Symptoms Neurological: Denies: Weakness, Numbness, Incoordination, Change in speech, Confusion, Seizures, Other Symptoms Objective Physical Examination General Exam: Positive: Alert, Cooperative Chest Exam: Positive: Other (Decreased breath sound bilaterally but decreased crackles also) Heart Exam: Positive: Other (Irregular S1-S2 audible diminished heart sounds) Telemetry: Positive: Atrial fibrillation Abdomen Exam: Positive: Normal bowel sounds, Soft Extremity Exam: Positive: Other (2+ bipedal edema) Skin Exam: Positive: Nl turgor and temperature Neuro Exam: Positive: Other (No focal motor or sensory deficit) Assessment /Plan Problems (1) CHF (congestive heart failure) Status: Acute (2) Shortness of breath Status: Acute (3) Afib Status: Chronic (4) Adenocarcinoma of right lung, stage 4 Status: Chronic Plan/VTE VTE Prophylaxis Ordered?: Yes Plan This is 75 years old male with past medical history of 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 fib atrial fibrillation, hypertension, diastolic heart failure, bilateral total hip replacement, left total knee replacement and multiple colovesical surgeries was sent from a oncology clinic with increasing shortness of breath and weight gains of 7 pounds from last week patient also was found hypotensive there 8 with a blood pressure of 85/50 at the cancer treatment center his last chemotherapy was 10/13/2019 . Patient complaining of shortness of breath mostly on exertion but also at rest swelling on his both lower extremities, increased weight gain but no chest pain nausea vomiting or abdominal pain. Patient being admitted with possible CHF with weight gain and bilateral lower extremities edema. #1 acute diastolic heart failure #2 severe bipedal edema #3 stage IV adenocarcinoma of lung status post chemotherapy recently Admit patient to telemetry unit for inpatient admission patient has improved weight loss as well as urine output which is close to 2 L/day patient lost about 6 kg of weight since admission echocardiogram shows:1. A low-normal global left ventricular systolic function. Assessment of the left ventricular diastolic function was limited. 2. Aortic valve sclerosis with mild aortic regurgitation but no aortic stenosis. 3. Mitral annulus calcification with a mildly enlarged left atrium and mild mitral regurgitation. 4. Moderate tricuspid regurgitation with severe pulmonary hypertension and dilated right atrium. 5. A small pericardial effusion was noted, no evidence of cardiac tamponade. Left pleural effusion was noted. Serial troponins were negative Monitor intake and output continue daily weights cardiology consult still pending Continue all patient's home medications which includes digoxin bisoprolol Xarelto spironolactone and allopurinol DVT prophylaxis patient already on Xarelto Diet 2 g sodium diet out of bed as tolerated, possible discharge in a.m. [facility] Vital Signs/I&O Vital Signs Date Time Temp Pulse Resp B/P (MAP) Pulse Ox O2 Delivery O2 Flow Rate FiO2 10/21/20 08:32 64 102/64 10/21/20 06:00 97.4 18 94 10/20/20 15:49 Room Air I&O- Last 24 Hours up to 6 AM 10/21/20 06:00 Intake Total 1260 ml Output Total 2500 ml Balance -1240 ml Laboratory Data 24H LABS Laboratory Tests 2 10/20/20 11:42: Magnesium Level 2.1 10/21/20 05:22: Immature Granulocyte % (Auto) 2.0, Neutrophils (%) (Auto) 76.3H, Lymphocytes (%) (Auto) 12.0L, Monocytes (%) (Auto) 8.4H, Eosinophils (%) (Auto) 1.0, Basophils (%) (Auto) 0.3, Neutrophils # (Auto) 3.0, Lymphocytes # (Auto) 0.5L, Monocytes # (Auto) 0.3, Eosinophils # (Auto) 0.0, Basophils # (Auto) 0.0, Nucleated Red Blood Cells % (auto) 0.5H, Anion Gap 8, Glomerular Filtration Rate > 60.0, Calcium Level 7.6L, Total Bilirubin 0.3, Aspartate Amino Transf (AST/SGOT) 31, A lanine Aminotransferase (ALT/SGPT) 27, Alkaline Phosphatase 80, Total Protein 5.6L, Albumin 2.2L, Albumin/Globulin Ratio 0.6 CBC/BMP Laboratory Tests 10/21/20 05:22 ADRIÁN WILKINS MD Oct 21, 2020 10:58
[2020-10-21 14:00] VITALS: BP 111/70
[2020-10-21] MEDS: RIVAROXABAN 20 MG TAB (XARELTO) PO SCH (17:49)
[2020-10-21] MEDS: SPIRONOLACTONE 12.5MG PER 1/2 TABLET PO SCH (21:14)
[2020-10-21 22:00] VITALS: BP 100/57
[2020-10-22] MEDS: FUROSEMIDE 40MG/4ML VIAL (J1940) IV SCH (04:10)
[2020-10-22 05:44] LABS: BASO % 0.2 % (0.0-1.0); EOS # 0.1 10^3/uL (0.0-0.5); EOS % 1.6 % (0.0-3.0); HEMATOCRIT 30.1 % (42.0-52.0); HEMOGLOBIN 9.5 g/dl (13.5-17.5); LYMPH # 0.5 10^3/uL (1.5-5.0); LYMPH % 10.5 % (24.0-44.0); MEAN CORPUSCULAR HEMOGLOBIN 25.7 pg (27.0-33.0); MEAN CORPUSCULAR HGB CONC 31.6 g/dl (32.0-36.5); MEAN CORPUSCULAR VOLUME 81.6 fl (80.0-96.0); MONO # 0.5 10^3/uL (0.0-0.8); NEUTROPHILS # 3.4 10^3/uL (1.5-8.5); NEUTROPHILS % 75.7 % (36.0-66.0); PLATELET COUNT, AUTOMATED 226 10^3/uL (150-450); RED BLOOD COUNT 3.69 10^6/uL (4.30-6.10); WHITE BLOOD COUNT 4.5 10^3/uL (4.0-10.0)
[2020-10-22 06:00] VITALS: BP 106/57
[2020-10-22 06:14] LABS: ALBUMIN 2.2 GM/DL (3.2-5.2); ALT/SGPT 31 U/L (12-78); BILIRUBIN,TOTAL 0.3 MG/DL (0.2-1.0); BLOOD UREA NITROGEN 20 MG/DL (7-18); CALCIUM LEVEL 7.7 MG/DL (8.8-10.2); CARBON DIOXIDE LEVEL 33 MEQ/L (21-32); CHLORIDE LEVEL 103 MEQ/L (98-107); CREATININE FOR GFR 0.78 MG/DL (0.70-1.30); GLOMERULAR FILTRATION RATE > 60.0 (>42); GLUCOSE, FASTING 97 MG/DL (70-100); MAGNESIUM LEVEL 2.2 MG/DL (1.8-2.4); POTASSIUM SERUM 4.3 MEQ/L (3.5-5.1); SODIUM LEVEL 140 MEQ/L (136-145); TOTAL PROTEIN 5.6 GM/DL (6.4-8.2)
[2020-10-22] MEDS ORDERED: ALBUTEROL SULFATE 2.5 MG/0.5 ML INH NEB SOLN INH PRN (07:45)
[2020-10-22 08:56] VITALS: BP 110/72
[2020-10-22] MEDS: bisoproloL fumarate 10 MG TAB PO SCH (08:56)
[2020-10-22] MEDS: DIGOXIN 0.125 MG TAB PO SCH (08:57)
[2020-10-22] MEDS: DOCUSATE SODIUM 100MG CAPSULE PO SCH (08:57)
[2020-10-22] MEDS: allopurinoL 100 MG TAB PO SCH (08:57)
[2020-10-22] MEDS ORDERED: FUROSEMIDE 20 MG TAB PO SCH (09:00)
[2020-10-22] MEDS ORDERED: COLCHICINE 0.6 MG TABLET PO SCH (09:00)
[2020-10-22] MEDS ORDERED: TORSEMIDE 20 MG TAB PO SCH (09:00)
[2020-10-22] MEDS ORDERED: MULTIVITAMINS/MINERALS THERAP 1 TAB PO SCH (09:00)
--- NOTE | 2020-10-22 09:51 | DS.PDOC ---
Discharge Summary General Date of Admission Oct 19, 2020 at 18:00 Date of Discharge 10/23/19 Attending Physician: ADRIÁN WILKINS MD Discharge Summary PROCEDURES PERFORMED DURING STAY: None. ADMITTING DIAGNOSES: 1. Bipedal edema. DISCHARGE DIAGNOSES: 1. Bilateral pedal edema, acute diastolic heart failure, stage IV adenocarcinoma of lung. COMPLICATIONS/CHIEF COMPLAINT: CHF. 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 fib atrial fibrillation, hypertension, diastolic heart failure, bilateral total hip replacement, left total knee replacement and multiple colovesical surgeries was sent from a oncology clinic with increasing shortness of breath and weight gains of 7 pounds from last week patient also was found hypotensive there 8 with a blood pressure of 85/50 at the cancer treatment center his last chemotherapy was 10/13/2019 . Patient complaining of shortness of breath mostly on exertion but also at rest swelling on his both lower extremities, increased weight gain but no chest pain nausea vomiting or abdominal pain. Patient being admitted with possible CHF with weight gain and bilateral lower extremities edema.. HOSPITAL COURSE: #1 acute diastolic heart failure #2 severe bipedal edema #3 stage IV adenocarcinoma of lung status post chemotherapy recently echocardiogram shows:1. A low-normal global left ventricular systolic function. Assessment of the left ventricular diastolic function was limited. 2. Aortic valve sclerosis with mild aortic regurgitation but no aortic stenosis. 3. Mitral annulus calcification with a mildly enlarged left atrium and mild mitral regurgitation. 4. Moderate tricuspid regurgitation with severe pulmonary hypertension and dilated right atrium. 5. A small pericardial effusion was noted, no evidence of cardiac tamponade. Left pleural effusion was noted. #6.EF 50 to 55% Patient's serial troponin remained negative and he had a good urinary output with the Lasix net negative dosage Patient responded very well to IV diuresis with Lasix his initial weight was 93.6 kg and today's weight is 88.9 kg on clinical exam his legs have significantly decreased swelling minimum bipedal edema no shortness of breath and patient is ambulatory. Patient will be discharged home on furosemide instead of torsemide with increased dose of 40 mg p.o. twice daily and follow-up with his PCP Dr. Coffey as an continue patient's all other home medication including spironolactone, digoxin, bisoprolol, Xarelto and allopurinol DISCHARGE MEDICATIONS: Please see below. ALLERGIES: Please see below. PHYSICAL EXAMINATION ON DISCHARGE: VITAL SIGNS: Please see below. GENERAL: Within normal limit HEENT: PERRLA extraocular muscles intact NECK: Supple CARDIOVASCULAR EXAMINATION: S1-S2 regular RESPIRATORY EXAMINATION: Clear to A&P ABDOMINAL EXAMINATION: Benign EXTREMITIES: Minimal edema bilateral lower extremity SKIN: Normal NEUROLOGICAL EXAMINATION: No focal motor or sensory deficit PSYCHIATRIC EXAMINATION: Normal LABORATORY DATA: Please see below. IMAGING: As per radiology report PROGNOSIS: Fair ACTIVITY: As tolerated. DIET: As tolerated DISCHARGE PLAN: DC home DISPOSITION: Home DISCHARGE INSTRUCTIONS: 1. As per discharge instruction. ITEMS TO FOLLOWUP ON ON OUTPATIENT: 1. Follow-up with Dr. Coffey in 1 week. DISCHARGE CONDITION: Stable. TIME SPENT ON DISCHARGE: 38 minutes. Vital Signs/I&Os Vital Signs Date Time Temp Pulse Resp B/P (MAP) Pulse Ox O2 Delivery O2 Flow Rate FiO2 10/22/20 08:57 70 10/22/20 08:56 110/72 10/22/20 06:00 96.8 18 99 Room Air I&O- Last 24 Hours up to 6 AM 10/22/20 06:00 Intake Total 1510 ml Output Total 3125 ml Balance -1615 ml Laboratory Data Labs 24H Laboratory Tests 2 10/22/20 05:23: Immature Granulocyte % (Auto) 2.0, Neutrophils (%) (Auto) 75.7H, Lymphocytes (%) (Auto) 10.5L, Monocytes (%) (Auto) 10.0H, Eosinophils (%) (Auto) 1.6, Basophils (%) (Auto) 0.2, Neutrophils # (Auto) 3.4, Lymphocytes # (Auto) 0.5L, Monocytes # (Auto) 0.5, Eosinophils # (Auto) 0.1, Basophils # (Auto) 0.0, Nucleated Red Blood Cells % (auto) 1.1H, Anion Gap 4L, Glomerular Filtration Rate > 60.0, Calcium Level 7.7L, Magnesium Level 2.2, Total Bilirubin 0.3, Aspartate Amino Transf (AST/SGOT) 39H, Alanine Aminotransferase (ALT/SGPT) 31, Alkaline Phosphatase 77, Total Protein 5.6L, Albumin 2.2L, Albumin/Globulin Ratio 0.6 CBC/BMP Laboratory Tests 10/22/20 05:23 Discharge Medications Scheduled Allopurinol (Allopurinol) 100 Mg Tablet, 200 MG PO DAILY, (Reported) Bifidobacterium Infantis (Align) 4 Mg Cap, 4 MG PO DAILY, (Reported) Bisoprolol Fumarate (Bisoprolol Fumarate) 5 Mg Tablet, 5 MG PO QPM, (Reported) Bisoprolol Fumarate (Bisoprolol Fumarate) 10 Mg Tablet, 10 MG PO DAILY, (Reported) Colchicine (Colchicine) 0.6 Mg Tablet, 0.6 MG PO DAILY, (Reported) Digoxin (Digoxin) 125 Mcg Tablet, 125 MCG PO DAILY, (Reported) Docusate Sodium (Stool Softener) 100 Mg Capsule, 200 MG PO DAILY, (Reported) Fluticasone/Umeclidin/Vilanter (Trelegy Ellipta 100-62.5-25) 1 Each Blst.w.dev, 1 PUFF INH DAILY, (Reported) Multivitamins (Thera M Plus Tablet) 1 Tab Tab, 1 TAB PO DAILY, (Reported) Rivaroxaban (Xarelto) 20 Mg Tab, 20 MG PO QHS, (Reported) Spironolactone (Spironolactone) 25 Mg Tablet, 12.5 MG PO DAILY, (Reported) Torsemide (Torsemide) 20 Mg Tablet, 40 MG PO BID, (Reported) TAKES AM/1600 Scheduled PRN Albuterol Sulf (Albuterol Sulfate) 2.5 Mg/3 Ml Vial.neb, 2.5 MG INH Q6H PRN for SOB/WHEEZING, (Reported) Allergies Coded Allergies: No Known Allergies (Unverified , 04/23/18) ADRIÁN WILKINS MD Oct 22, 2020 09:51
[2020-10-22] MEDS ORDERED: FURO20TA2 PO (09:57)
[2020-10-23] MEDS ORDERED: allopurinoL 100 MG TAB PO SCH (09:00)
== END 2020-10-22 11:15 | disposition home or self-care (01) | DRG 292 ==
LOC: M ED 15:00 → M ED INP 18:00 → ENRESERV 10-20 14:26 → M MSPAV 10-20 15:50
PROVIDERS: ADMIT Internal Medicine; ATTEND Internal Medicine
DX: I11.0 Hypertensive heart disease with heart failure (principal); C34.11 Malignant neoplasm of upper lobe, right bronchus or lung; I48.91 Unspecified atrial fibrillation; I50.33 Acute on chronic diastolic (congestive) heart failure; Z96.643 Presence of artificial hip joint, bilateral; Z96.652 Presence of left artificial knee joint; Z79.899 Other long term (current) drug therapy; Z79.01 Long term (current) use of anticoagulants; I08.3 Combined rheumatic disorders of mitral, aortic and tricuspid valves

== ENCOUNTER → 2020-10-25 | Outpatient (REF) | payer MEDICARE, OTHER ==
[~2020-10-25] MED LIST changes: +ALBU83IN INH
== END ==
LOC: M LAB REF 12:11
PROVIDERS: ATTEND Internal Medicine
DX: M10.041 Idiopathic gout, right hand (principal)

== ENCOUNTER 2020-11-30 11:41 | Outpatient (RCR) | payer MEDICARE, OTHER ==
[~2020-11-30 11:41] MED LIST changes: +AMBI5TAB PO; +GUAI1SOL7 PO
== END 2020-12-07 ==
LOC: M PT 11:41
PROVIDERS: ATTEND Internal Medicine Medical Oncology
DX: C34.90 Malignant neoplasm of unspecified part of unspecified bronchus or lung (principal); R53.81 Other malaise; R53.1 Weakness

== ENCOUNTER → 2020-12-06 | Outpatient (CLI) | payer MEDICARE, OTHER ==
--- NOTE | 2020-12-06 14:15 | REP ---
INDICATION: PLEURAL EFFUSION, NOT ELSEWHERE CLASSIFIED COMPARISON: 10/19/2020 as well as other prior exams. TECHNIQUE: PA/Lateral FINDINGS: Cardiomegaly is again noted. The mediastinal silhouette is unchanged. There are [id number] bilateral pleural effusions, left greater than right. These appear similar to the prior exam. Adjacent bibasilar parenchymal opacity also appears similar to the prior exam. There are diffuse degenerative changes of the spine. There are significant degenerative changes at the glenohumeral joints bilaterally. IMPRESSION: Cardiomegaly with bibasilar infiltrates and effusions as discussed above, similar to the prior exam. <Electronically signed by Bishop Gordon > 12/06/20 [id number]
== END ==
LOC: M RAD 11:02
PROVIDERS: ATTEND Internal Medicine Pulmonary Disease
DX: J90 Pleural effusion, not elsewhere classified (principal); I51.7 Cardiomegaly

== ENCOUNTER → 2020-12-17 | Outpatient (CLI) | payer MEDICARE, OTHER ==
[~2020-12-17] MED LIST changes: +GASTROGRAFIN SOLUTION 30ML (Q9963) As Ordered ONE; +ISOVUE-370 76% 100ML VIAL As Ordered ONE
--- NOTE | 2020-12-17 13:44 | REP ---
INDICATION: LUNG CA. COMPARISON: Comparison chest CT June 14, 2020. April 23, 2020 prior study is also reviewed. TECHNIQUE: Helical scanning is acquired following the intravenous injection of 100 mL of Isovue 370. 3 mm axial images are generated. Coronal and sagittal MPR images are provided. FINDINGS: Security Sales Consultant view shows pleural effusions and cardiomegaly. There is an area of subcutaneous edema along the right flank and to a lesser extent in the posterior aspect lower chest. There is a moderate left pleural effusion again noted, slightly increased from the most recent prior study of June 14, 2020. Four-chamber cardiac enlargement is seen. There is a small quantity of pericardial fluid suspected. There is a small amount of loculated right pleural effusion. This is unchanged. There is visceral and parietal pleural thickening associated with this. No new hilar or mediastinal mass or adenopathy is observed. No extra thoracic adenopathy is seen. Normal adrenal glands are observed. Visualized upper abdominal structures are unremarkable. On lung window settings there is some thickening of the major fissure. Interstitial markings are again noted to be prominent in the right lung base unchanged. No new lung mass or nodule is seen. No bony destructive lesion is appreciated. IMPRESSION: Moderate left pleural effusion is increased somewhat since the most recent prior study. Loculated right pleural fluid and parenchymal interstitial changes in the right base unchanged from the prior study. No new mass or adenopathy seen. <Electronically signed by Yemi Mota > 12/17/20 [id number]
--- NOTE | 2020-12-17 13:49 | REP ---
INDICATION: LUNG CA. COMPARISON: Multiple the latest 06/14/2020 TECHNIQUE: Standard helical technique after the intravenous administration of 100 cc Isovue 370 and oral bowel preparatory contrast administration. FINDINGS: The liver, gallbladder, spleen, pancreas, adrenal glands, and kidneys are unchanged. The abdominal aorta and para-aortic regions are unchanged. There is no significant change in appearance of the bowel loops or the mesenteries. Once again, spray artifact arising from bilateral hip prostheses obscures images of the pelvis. There is no evidence of free intraperitoneal fluid or air. There is no significant change in the appearance of the osseous structures. IMPRESSION: No evidence of an acute abnormality or significant change compared to the prior exam. <Electronically signed by Umberto Pichardo > 12/17/20 [id number]
== END ==
LOC: M RAD 11:18
PROVIDERS: ATTEND Internal Medicine Medical Oncology
DX: C34.00 Malignant neoplasm of unspecified main bronchus (principal); J90 Pleural effusion, not elsewhere classified; I51.7 Cardiomegaly
CPT/HCPCS: 71260; 74177; Q9963; Q9967

== ENCOUNTER 2020-12-22 09:09 | Outpatient (RCR) | payer MEDICARE, OTHER ==
[~2020-12-22 09:09] MED LIST changes: -GASTROGRAFIN SOLUTION 30ML (Q9963) As Ordered ONE; -ISOVUE-370 76% 100ML VIAL As Ordered ONE
[2020-12-28] MEDS ORDERED: GUAI1SOL7 PO (13:57)
== END 2021-01-03 ==
LOC: M PT 09:09
PROVIDERS: ATTEND Internal Medicine Medical Oncology
DX: R53.1 Weakness (principal); C34.90 Malignant neoplasm of unspecified part of unspecified bronchus or lung

== ENCOUNTER 2021-01-01 14:56 | Inpatient (IN) | payer MEDICARE, OTHER ==
[~2021-01-01] VITALS: Ht 175.3 cm; Wt 93.3 kg
[2021-01-01] VITALS (9 sets, daily range): BP systolic 67–126; BP diastolic 35–80
--- NOTE | 2021-01-01 15:41 | REP ---
INDICATION: DYSPNEA/COUGH. COMPARISON: PA and lateral chest, 12/06/2020. TECHNIQUE: Portable chest image was obtained. FINDINGS: There is cardiomegaly, pulmonary venous hypertension and pulmonary interstitial edema consistent with congestive heart failure. There are bilateral pleural effusions. IMPRESSION: Congestive heart failure with bilateral pleural effusions. <Electronically signed by Leo Rodriguez > 01/01/21 [id number]
[2021-01-01 16:00] LABS: BASO % 0.1 % (0.0-1.0); EOS % 0.1 % (0.0-3.0); HEMATOCRIT 33.6 % (42.0-52.0); HEMOGLOBIN 9.9 g/dl (13.5-17.5); LYMPH # 0.1 10^3/uL (1.5-5.0); LYMPH % 0.8 % (24.0-44.0); MEAN CORPUSCULAR HEMOGLOBIN 28.4 pg (27.0-33.0); MEAN CORPUSCULAR HGB CONC 29.5 g/dl (32.0-36.5); MEAN CORPUSCULAR VOLUME 96.6 fl (80.0-96.0); MONO # 0.2 10^3/uL (0.0-0.8); MONO % 1.3 % (2.0-8.0); NEUTROPHILS # 13.1 10^3/uL (1.5-8.5); NEUTROPHILS % 96.3 % (36.0-66.0); RED BLOOD COUNT 3.48 10^6/uL (4.30-6.10); WHITE BLOOD COUNT 13.6 10^3/uL (4.0-10.0)
[2021-01-01] MEDS ORDERED: NOREPINEPHRINE 4 MG/4 ML AMP As Ordered ONE (16:01)
[2021-01-01 16:02] LABS: PLATELET COUNT, AUTOMATED 1128 10^3/uL (150-450)
[2021-01-01] MEDS ORDERED: FUROSEMIDE 100MG/10ML VIAL (J1940) IV ONE (16:05)
[2021-01-01 16:09] LABS: ALBUMIN 2.2 GM/DL (3.2-5.2); ALT/SGPT 32 U/L (12-78); BILIRUBIN,DIRECT 0.4 MG/DL (0.0-0.2); BILIRUBIN,TOTAL 0.7 MG/DL (0.2-1.0); BLOOD UREA NITROGEN 39 MG/DL (7-18); CALCIUM LEVEL 7.1 MG/DL (8.8-10.2); CARBON DIOXIDE LEVEL 32 MEQ/L (21-32); CHLORIDE LEVEL 101 MEQ/L (98-107); CK-MB VALUE MASS < 1.0 NG/ML (<3.6); CPK CREATINE PHOSPHOKINASE 25 U/L (39-308); GLOMERULAR FILTRATION RATE 57.3 (>42); GLUCOSE, FASTING 135 MG/DL (70-100); NT-PRO BNP 6502 PG/ML (<450); POTASSIUM SERUM 5.6 MEQ/L (3.5-5.1); SODIUM LEVEL 137 MEQ/L (136-145); THYROXINE (T4) 7.2 UG/DL (4.5-12.0); TROPONIN I < 0.02 NG/ML (< 0.10)
[2021-01-01 17:32] LABS: RSV AMPLIFICATION NEGATIVE (NEGATIVE)
[2021-01-01] MEDS ORDERED: DIGOXIN INJ 0.5 MG/2 ML AMP (J1160) IV ONE ×2 (18:20→22:30)
[2021-01-01] MEDS ORDERED: HOME MED LIST COMPLETE! XX SCH (18:30)
--- NOTE | 2021-01-01 18:53 | HPEPDOC ---
General Date of Admission 01/01/21 Date of Service: Jan 01, 2021 Chief Complaint The patient is a 75-year-old male admitted with a reason for visit of Resp Distress. Source: Patient History of Present Illness 75-year-old male with stage IV adenocarcinoma of the lung with bilateral pleural effusions, diastolic CHF, COPD has been having increasing shortness of breath for the past 2 days. has been trying to convince him to come to emergency room and ultimately he agreed to come today. Went to pull out the car and came back to get him, found him unresponsive with labored breathing. He was unresponsive with EMS also. EMS placed him on CPAP and brought him to the [facility] room. On presentation to the ED he was found to have an ABG which showed a pH of 7.15, PCO2 of 88, PO2 of 78. He was started on BiPAP. Chest x-ray showed bilateral pleural effusions and features of CHF. He was given 60 mg of IV Lasix. Repeat ABG after 1 hour showed improvement with pH of 7.29, PCO2 of 66, PO2 of 149. Patient still remains lethargic however arousable to pain. No history could be obtained from him. All history is from ED provider, chart review and from at bedside. Patient's last chemo was on 12/28/2020. states usually after chemo patient feels fatigued with malaise for about 2 days and then gets better. But this week he did not improve in fact he started h aving breathing difficulty and became worse. Patient is on palliative chemotherapy third line gemcitabine chemotherapy as well as denosumab from 10/04/2020. Patient is admitted for acute respiratory failure with hypoxia and hypercarbia, acute metabolic encephalopathy, CHF exacerbation with bilateral pleural effusion. Home Medications Scheduled Allopurinol (Allopurinol) 100 Mg Tablet, 200 MG PO DAILY, (Reported) Bifidobacterium Infantis (Align) 4 Mg Cap, 4 MG PO DAILY, (Reported) Bisoprolol Fumarate (Bisoprolol Fumarate) 5 Mg Tablet, 5 MG PO QPM, (Reported) Bisoprolol Fumarate (Bisoprolol Fumarate) 10 Mg Tablet, 10 MG PO DAILY, (Reported) Colchicine (Colchicine) 0.6 Mg Tablet, 0.6 MG PO DAILY, (Reported) Digoxin (Digoxin) 125 Mcg Tablet, 125 MCG PO DAILY, (Reported) Docusate Sodium (Stool Softener) 100 Mg Capsule, 200 MG PO DAILY, (Reported) Fluticasone/Umeclidin/Vilanter (Trelegy Ellipta 100-62.5-25) 1 Each Blst.w.dev, 1 PUFF INH DAILY, (Reported) Multivitamins (Thera M Plus Tablet) 1 Tab Tab, 1 TAB PO DAILY, (Reported) Rivaroxaban (Xarelto) 20 Mg Tab, 20 MG PO QHS, (Reported) Spironolactone (Spironolactone) 25 Mg Tablet, 12.5 MG PO DAILY, (Reported) Torsemide (Torsemide) 20 Mg Tablet, 40 MG PO BID, (Reported) 2ND @ 1700 Scheduled PRN Albuterol Sulf (Albuterol Sulfate) 2.5 Mg/3 Ml Vial.neb, 2.5 MG INH Q6H PRN for SOB/WHEEZING, (Reported) Codeine Phosphate/Guaifenesin (Guaifen-Codeine 100-10 mg/5 ml) 5 Ml Liquid, 5-10 ML PO Q4HP PRN for cough and congestion Zolpidem Tartrate (Ambien) 5 Mg Tablet, 1 TAB PO QHSP PRN for sleep Allergies Coded Allergies: No Known Allergies (Unverified , 04/23/18) Past Medical History Medical History Stage IV adenocarcinoma of lung with right Hilar mass and right malignant pleural effusion and bone mets diagnosed in 2019 on palliative chemo Bilateral pleural effusion, right loculated History of recurrent right-sided malignant pleural effusions status post Pleurx placement in 2019 and removal COPD Atrial fibrillation/atrial flutter Diastolic CHF, EF of 50 to 55% Severe pulmonary hypertension Hypertension. History of colovesical fistula. Urinary incontinence Gout Surgical History Bilateral total hip replacement. Left total knee replacement. Multiple abdominal surgeries for colovesical fistula. Family History Significant Family History: Cancer (Mother from lung cancer at the age of 53) Social History * Smoker: former Smoker (Quit in 2001) A-FIB/CHADSVASC A-FIB History Current/History of A-Fib/PAF?: Yes Current PO Anticoag Therapy: Yes Review of Systems Constitutional: Reports: Malaise, Fatigue; Denies: Fever Eyes: Denies: Pain, Vision change ENT: Denies: Head Aches, Ear Pain, Dysphagia Pulmonary: Reports: Dyspnea Cardiovascular: Reports: Orthopnea; Denies: Chest Pain, Paroxysmal Noc. Dyspnea, Lt Headedness Physical Examination General Exam: Positive: Other (Lethargic arousable only to pain) Eye Exam: Positive: Conjunctiva & lids normal Neck Exam: Positive: Supple, JVD; Negative: thyromegaly Chest Exam: Positive: Diminished (Diminished breath sounds on the right till up to the middle of the chest , diminished breath sound on the left at the base.), Other (Bilateral diffuse crackles); Negative: Rales, Rhonchi, Wheezing Heart Exam: Positive: Tachycardic, Regular Rhythm, Irregular Rhythm; Negative: Murmurs, Rubs Telemetry: Positive: Atrial fibrillation Abdomen Exam: Positive: Normal bowel sounds, Soft, Other (bilateral parietal edema) Extremity Exam: Positive: Other (edema att eh lateral and back of thighs); Negative: Edema Skin Exam: Positive: Other skin issue (Skin very taut and stretched in the legs, mottling of the skin of both the feet and toes) Vital Signs Vital Signs Date Time Temp Pulse Resp B/P (MAP) Pulse Ox O2 Delivery O2 Flow Rate FiO2 01/01/21 16:11 NIPPV (BIPAP/CPAP) 01/01/21 15:30 140/73 (95) 94 01/01/21 15:26 144 01/01/21 15:08 100 01/01/21 15:05 99.6 18 Laboratory Data Labs 24H Laboratory Tests 2 01/01/21 15:08: POC pH (Misc Panel) 7.158*L, POC Base Excess (Misc Panel) 3.0, POC Saturated Percent O2 (Misc) 89L, POC pO2 (Misc Panel) 74.0L, POC pCO2 (Misc Panel) 88.6*H, POC HCO3 (Misc Panel) 31.5H, POC Total CO2 (Misc Panel) 34.0H 01/01/21 15:19: Immature Granulocyte % (Auto) 1.4, Neutrophils (%) (Auto) 96.3H, Lymphocytes (%) (Auto) 0.8L, Monocytes (%) (Auto) 1.3L, Eosinophils (%) (Auto) 0.1, Basophils (%) (Auto) 0.1, Neutrophils # (Auto) 13.1H, Lymphocytes # (Auto) 0.1L, Monocytes # (Auto) 0.2, Eosinophils # (Auto) 0.0, Basophils # (Auto) 0.0, Nucleated Red Blood Cells % (auto) 0.3H, Anion Gap 4L, Glomerular Filtration Rate 57.3, Lactic Acid Level 2.9*H, Calcium Level 7.1L, Total Bilirubin 0.7, Direct Bilirubin 0.4H, Aspartate Amino Transf (AST/SGOT) 37, Alanine Aminotransferase (ALT/SGPT) 32, Alkaline Phosphatase 129H, Total Creatine Kinase 25L, Creatine Kinase MB < 1.0, Creatine Kinase MB Relative Index 4.00, Troponin I < 0.02, HI-Kmg-U-Type Natriuretic Peptide 6502H, Total Protein 6.0L, Albumin 2.2L, Albumin/Globulin Ratio 0.6, Thyroid Stimulating Hormone (TSH) 4.090H, Thyroxine (T4) 7.2 01/01/21 15:57: POC Troponin I (Misc) 0.02 01/01/21 16:11: POC pH (Misc Panel) 7.290L, POC Base Excess (Misc Panel) 5.0H, POC Saturated Percent O2 (Misc) 99H, POC pO2 (Misc Panel) 149.0H, POC pCO2 (Misc Panel) 66.8*H, POC HCO3 (Misc Panel) 32.1H, POC Total CO2 (Misc Panel) 34.0H 01/01/21 16:20: CBC/BMP Laboratory Tests 01/01/21 15:19 Microbiology Microbiology 01/01/21 Blood Culture, Received Pending 01/01/21 Blood Culture, Received Pending Assessment/Plan 75-year-old male with stage IV adenocarcinoma of the lung with bilateral pleural effusions, diastolic CHF, COPD has been having increasing shortness of breath for the past 2 days. has been trying to convince him to come to emergency room and ultimately he agreed to come today. Went to pull out the car and came back to get him, found him unresponsive with labored breathing. He was unresponsive with EMS also. EMS placed him on CPAP and brought him to the emergency room. On presentation to the ED he was found to have an ABG which show ed a pH of 7.15, PCO2 of 88, PO2 of 78. He was started on BiPAP. Chest x-ray showed bilateral pleural effusions and features of CHF. He was given 60 mg of IV Lasix. Repeat ABG after 1 hour showed improvement with pH of 7.29, PCO2 of 66, PO2 of 149. Patient still remains lethargic however arousable to pain. No history could be obtained from him. All history is from ED provider, chart review and from at bedside. Patient's last chemo was on 12/28/2020. states usually after chemo patient feels fatigued with malaise for about 2 days and then gets better. But this week he did not improve in fact he started having breathing difficulty and became worse. Patient is on palliative chemot herapy third line gemcitabine chemotherapy as well as denosumab from 10/04/2020. Patient is admitted for acute respiratory failure with hypoxia and hypercarbia, acute metabolic encephalopathy, CHF exacerbation with bilateral pleural effusion. Acute respiratory failure with hypoxia and hypercarbia Due to bilateral pleural effusion and CHF exacerbation CXR There is cardiomegaly, pulmonary venous hypertension and pulmonary interstitial edema consistent with congestive heart failure. There are bila teral pleural effusions. Continue on BiPAP 24/09 We will have to arrange for left-sided pleural tap. NPO IV Lasix every 6 hour Posey catheter, monitor intake and output and daily weight Seismograph Operator consulted Diastolic CHF exacerbation Last known EF was 50% to 55% We will continue with Lasix A. fib with RVR We will control rate with digoxin Cannot give beta-blockers as blood pressure is soft We will continue with anticoagulation when taking p.o. Stage IV adenocarcinoma of lung with right hilar mass and right malignant pleural effusion on palliative chemotherapy Right-sided pleural effusion is known to be loculated. Left-sided pleural effusion has increased this month from prior studies. Will need left-sided pleural effusion tapping. Discussed advanced directives with the at bedside and daughter over the phone in [place] at this point he remains undecided. So patient will remain full code for now. COPD Continue duo nebs budesonide. Plan / VTE VTE Prophylaxis Ordered?: Yes Ekaterina Tanner MD Jan 01, 2021 17:27
[2021-01-01 18:58] LABS: DIGOXIN LEVEL 1.2 NG/ML (0.5-2.0)
[2021-01-01 19:16] LABS: ABG BASE EXCESS 0.7 (-2.0-2.0); ABG HCO3 27.1 MEQ/L (22.0-26.0); ABG O2 SATURATION 99.2 % (95.0-99.0); ABG PARTIAL PRESSURE CO2 51.2 mmHg (35.0-45.0); ABG PARTIAL PRESSURE O2 169.6 mmHg (75.0-100.0); ABG STANDARD HCO3 25.2 MEQ/L (22.0-26.0); ABG TOTAL CO2 28.6 MEQ/L (23.0-31.0); ABG pH (ARTERIAL) 7.341 UNITS (7.350-7.450)
[2021-01-01] MEDS: BUDESONIDE 0.5 MG/2 ML INHALATION SUSPENSION INH SCH (21:08)
[2021-01-01] MEDS: IPRATROPIUM 0.5MG/ALBUTEROL 2.5MG INH SOL UD 3ML (DUONEB) NEB SCH (21:08)
[2021-01-01] MEDS ORDERED: NOREPINEPHRINE BITARTRATE 8 MG in D5W 492 ML IV SCH (21:15)
[2021-01-01] MEDS: FUROSEMIDE 40MG/4ML VIAL (J1940) IV SCH (22:34)
[2021-01-02] VITALS (20 sets, daily range): BP systolic 90–137; BP diastolic 50–76
[2021-01-02] MEDS: IPRATROPIUM 0.5MG/ALBUTEROL 2.5MG INH SOL UD 3ML (DUONEB) NEB SCH ×6 (00:14→20:05)
[2021-01-02] MEDS: PIPERACILLIN/TAZOBACTAM SOD 3.375 GM in D5W MINI-BAG PLUS 50 ML IV SCH ×4 (00:50→18:05)
[2021-01-02] MEDS: FUROSEMIDE 40MG/4ML VIAL (J1940) IV SCH (03:58)
[2021-01-02 05:14] LABS: BASO % 0.1 % (0.0-1.0); HEMATOCRIT 30.9 % (42.0-52.0); HEMOGLOBIN 9.2 g/dl (13.5-17.5); LYMPH # 0.2 10^3/uL (1.5-5.0); LYMPH % 1.5 % (24.0-44.0); MEAN CORPUSCULAR HEMOGLOBIN 28.4 pg (27.0-33.0); MEAN CORPUSCULAR HGB CONC 29.8 g/dl (32.0-36.5); MEAN CORPUSCULAR VOLUME 95.4 fl (80.0-96.0); MONO # 0.1 10^3/uL (0.0-0.8); MONO % 1.3 % (2.0-8.0); NEUTROPHILS # 9.6 10^3/uL (1.5-8.5); NEUTROPHILS % 94.7 % (36.0-66.0); RED BLOOD COUNT 3.24 10^6/uL (4.30-6.10); WHITE BLOOD COUNT 10.2 10^3/uL (4.0-10.0)
[2021-01-02 05:19] LABS: PLATELET COUNT, AUTOMATED 863 10^3/uL (150-450)
[2021-01-02 05:28] LABS: CALCIUM LEVEL 7.2 MG/DL (8.8-10.2); CREATININE FOR GFR 1.52 MG/DL (0.70-1.30); GLOMERULAR FILTRATION RATE 47.8 (>42); POTASSIUM SERUM 5.4 MEQ/L (3.5-5.1)
--- NOTE | 2021-01-02 08:22 | ECGEPIP ---
[facility] - ED Test Date: 2021-01-01 Pat Name: DELL DAMON Department: Room: - Gender: Male Accounts Payable Technician: CARLIE : [id number] Requested By: ARSENIO BLANDON Order Number: [id number] Reading MD: Memo Alcaraz Measurements Intervals [place] Rate: 141 P: SC: QRS: 106 QRSD: 108 T: -76 QT: 290 QTc: 444 Interpretive Statements Atrial fibrillation with rapid ventricular response with premature ventricular or aberrantly conducted complexes Low voltage QRS INCOMPLETE RIGHT BUNDLE BRANCH BLOCK RATE CHANGE COMPARED TO 10/19/20 Electronically Signed on 01-02-2021 8:22:46 EDT by Memo Alcaraz
--- NOTE | 2021-01-02 08:34 | REP ---
INDICATION: follow up of CHF and pleural efussion. COMPARISON: Multiple the latest 01/01/2021 TECHNIQUE: Portable FINDINGS: The technique utilized in obtaining the radiograph has magnified the cardiac silhouette and attenuated the interstitial markings. There is global cardiomegaly accentuated by technique status quo. Patchy right lung field opacities are again identified, however, the patient is tilted rotated to the right limiting evaluation of the right lung field. Unchanged left basilar opacities and CP angle blunting appears unchanged. There is no significant change in the osseous structures. IMPRESSION: No significant change when the technical differences between the examinations are taken into consideration. <Electronically signed by Umberto Pichardo > 01/02/21 [id number]
[2021-01-02] MEDS ORDERED: PANTOPRAZOLE 40MG TAB (PROTONIX) PO SCH (09:00)
[2021-01-02] MEDS ORDERED: FUROSEMIDE 40MG/4ML VIAL (J1940) IV SCH (09:00)
[2021-01-02] MEDS ORDERED: allopurinoL 100 MG TAB PO SCH (09:00)
[2021-01-02] MEDS ORDERED: DIGOXIN INJ 0.5 MG/2 ML AMP (J1160) IV SCH (09:00)
[2021-01-02 09:46] LABS: VENOUS BASE EXCESS 2.1 (-2.0-2.0); VENOUS HCO3 29.6 MEQ/L (23.0-27.0); VENOUS O2 SATURATION 78.2 % (60.0-80.0); VENOUS PARTIAL PRESSURE CO2 62.6 mmHg (38.0-50.0); VENOUS PARTIAL PRESSURE O2 46.6 mmHg (30.0-50.0); VENOUS PH 7.293 UNITS (7.330-7.430); VENOUS STANDARD HCO3 26.1 MEQ/L; VENOUS TOTAL CO2 31.6 MEQ/L (24.0-28.0)
[2021-01-02] MEDS: BUDESONIDE 0.5 MG/2 ML INHALATION SUSPENSION INH SCH ×2 (11:22→20:05)
--- NOTE | 2021-01-02 11:39 | CCN ---
CRITICAL CARE NOTE DATE: 01/02/2021 START TIME: 10 o'clock STOP TIME: 1035 SUBJECTIVE: I attended Oren Forrest here in the intensive care unit. The patient has been examined, chart reviewed. I spoke at length with Dr. Tanner as well as the nurse at the bedside. In essence, this is a 75-year-old gentleman with no stage 4 adenocarcinoma of the lung with bone mets as well as a malignant right pleural effusion on palliative chemo. He has a known loculated right pleural effusion, at one time had a PleurX catheter. He has had intermittent difficulties with left-sided pleural effusion. Yesterday he was not feeling well. was getting him ready to come to the ER but he became unresponsive. He arrived with a pH 7.15, pCO2 of 88 and a paO2 of 78. He was placed on BiPAP. First chest x-ray was rotated and poor inspiratory effect but cannot rule out a right-sided infiltrate. This is compared to a CT scan done on the of this month. Repeat blood gas showed a pH 7.29, pCO2 of 66 and paO2 of 78. Most recent gas done this morning is a venous blood gas done at 0937 hours, has a pH back down to 7.29, pCO2 of 62.6. A blood gas done last evening had a pH that improved to 7.34, pCO2 of 51 and paO2 of 169 that was also, I believe, on noninvasive support. Chest x-ray this morning does show volume loss on the right with increasing infiltrate at the right base. Currently on exam, blood pressure 108 systolic, heart rate around 100, temperature 99 degrees. He is currently on high flow cannula with a sat of 92%. White blood cell count 10.2, hemoglobin 9.2, platelet count 863,000, down from 1,128,000 yesterday. He had 94% segs, no bands. Sodium 138, potassium 5.4, chloride of 100, CO2 31, BUN 46, creatinine 1.52, up from 1.30 yesterday. His lactic acid repeat is pending. It was 2.5 at 0209 hours this morning. Of note is the procalcitonin markedly elevated at 10.73. On arrival, he also had issues with A fib with RVR, dig level 1.2 and was treated with additional dig. His COVID screen is negative. OBJECTIVE: General: On exam, vitals as outlined above. Although he is globally weak and chronically ill appearing, he is able to be interactive. HEENT: Pupils do react. Sclerae are clear. Trachea is in the midline. Chest: Shows dullness to percussion with decreased breath sounds at the right base especially, more marked than the left. There are some inspiratory crackles, some occasional rhonchi that he cannot clear with cough and deep inspiration. No convincing rub. Cardiac: Regular. Peripheral pulses diminished but palpable. He has at least 1+ edema. Abdomen: Obese, soft. There are active bowel sounds. No convincing organomegaly or masses. Extremities: Show no cyanosis or clubbing. Neurologic: He appears fatigued but is appropriately interactive. The most pressing problems requiring my presence at the bedside: 1. [id number] hypoxemic and hypercapnic respiratory failure. 2. Stage IV adenocarcinoma of the lung. 3. A fib with RVR. 4. Known cardiac dysfunction. 5. Loculated right pleural effusion. 6. Chronic left pleural effusion. 7. Suspect primary pneumonitis. At this point, I do believe he will benefit from being back on noninvasive support. I had a long discussion with him in that regard. He is quite agreeable. Certainly he will be difficult to expectorate secretions with that but we will give him breaks on and off. His med list does include Zosyn. I will add IV steroids and we will increase his attempts at mucus clearance. I am in agreement with the remainder of his regimen as is. I do no see that he is on ulcer and DVT prophylaxis and that will be instituted as well. I understand that Dr. Tanner had a long discussion with the family yesterday regarding code status and at this point they still desire FULL CODE. Those wishes will be honored. We will proceed as outlined above. There is high likelihood he may have further compromise. I left the bedside at 1035 hours. A total of 35 minutes of critical care time were at the bedside not including procedures.
--- NOTE | 2021-01-02 11:53 | IPNPDOC ---
Subjective Date Seen The patient was seen on 01/02/21. Subjective Chief Complaint/HPI Awake and alert this morning. knows where he is. As per nurses intermittently confused. Has been refusing BiPAP overnight. Currently on 10 L of high flow oxygen. Continues to be in A. fib with RVR. Has pursed lip breathing. Has moist cough but unable to bring up any phlegm Objective Physical Examination General Exam: Positive: Alert, Cooperative, Mild Distress, Other (awake and alert knows where he is but intermittently confused. ) Eye Exam: Positive: Conjunctiva & lids normal Neck Exam: Positive: Supple, JVD; Negative: thyromegaly Chest Exam: Positive: Diminished (At both the bases. ), Other (bilateral coarse breath sounds with crackles at both the bases, right > left. ); Negative: Rales, Rhonchi, Wheezing Heart Exam: Positive: Tachycardic, Irregular Rhythm; Negative: Murmurs, Rubs Telemetry: Positive: Atrial fibrillation Abdomen Exam: Positive: Normal bowel sounds, Soft, Other (bilateral parietal edema) Extremity Exam: Positive: Other (edema att eh lateral and back of thighs); Negative: Edema Skin Exam: Positive: Other skin issue (Skin very taut and stretched in the legs, mottling of the skin of both the feet and toes) Assessment /Plan Assessment 75-year-old male with stage IV adenocarcinoma of the lung with bilateral pleural effusions, diastolic CHF, COPD has been having increasing shortness of breath for the past 2 days. has been trying to convince him to come to emergency room and ultimately he agreed to come today. Went to pull out the car and came back to get him, found him unresponsive with labored breathing. He was unresponsive with EMS also. EMS placed him on CPAP and brought him to the emergency room. On presentation to the ED he was found to have an ABG which showed a pH of 7.15, PCO2 of 88, PO2 of 78. He was started on BiPAP. Chest x- ray showed bilateral pleural effusions and features of CHF. He was given 60 mg of IV Lasix. Repeat ABG after 1 hour showed improvement with pH of 7.29, PCO2 of 66, PO2 of 149. Patient still remains lethargic however arousable to pain. No history could be obtained from him. All history is from ED provider, chart review and from at bedside. Patient's last chemo was on 12/28/2020. states usually after chemo patient feels fatigued with malaise for about 2 days and then gets better. But this week he did not improve in fact he started having breathing difficulty and became worse. Patient is on palliative chemotherapy third line gemcitabine chemotherapy as well as denosumab from 10/04/2020. Procalcitonin came back very high. CXR was poor film and could not rule out infiltrates. Patient was admitted for acute respiratory failure with hypoxia and hypercarbia, acute metabolic encephalopathy, CHF exacerbation with bilateral pleural effusion and right sided pneumonia. Right sided pneumonia Procalcitonin 10.8 started on zosyn blood cultures pending. Sputum cultures. Acapella, ez pap. Acute respiratory failure with hypoxia and hypercarbia Due to Pneumonia, bilateral pleural effusion and CHF exacerbation CXR There is cardiomegaly, pulmonary venous hypertension and pulmonary interstitial edema consistent with congestive heart failure. There are bilateral pleural effusions. Continue on BiPAP 24/09 We will have to arrange for left-sided pleural tap if SOB does not improve Pulmonology consultation appreciated. Diastolic CHF exacerbation Last known EF was 50% to 55% Did not have much output with Lasix. The patient has abdomen wall parietal wall edema and also edema in both the thighs. BUN and creatinine is going up Will reduce the Lasix A. fib with RVR We will control rate with digoxin Cannot give beta-blockers as blood pressure is soft We will continue with anticoagulation Stage IV adenocarcinoma of lung with right hilar mass and right malignant pleural effusion on palliative chemotherapy Right-sided pleural effusion is known to be loculated. Left-sided pleural effusion has increased this month from prior studies. Will need left-sided pleural effusion tapping. COPD Continue duo nebs budesonide. We will add steroids Gout continue with allopurinol. Plan/VTE VTE Prophylaxis Ordered?: Yes VS, I&O, 24H, Fishbone Vital Signs/I&O Vital Signs Date Time Temp Pulse Resp B/P (MAP) Pulse Ox O2 Delivery O2 Flow Rate FiO2 01/02/21 10:41 103 01/02/21 09:00 99.0 30 108/67 (81) 90 High Flow Cannula 10.0 01/02/21 08:00 95 I&O- Last 24 Hours up to 6 AM 01/02/21 06:00 Intake Total 50 ml Output Total 395 ml Balance -345 ml Laboratory Data 24H LABS Laboratory Tests 2 01/01/21 15:08: POC pH (Misc Panel) 7.158*L, POC Base Excess (Misc Panel) 3.0, POC Saturated Percent O2 (Misc) 89L, POC pO2 (Misc Panel) 74.0L, POC pCO2 (Misc Panel) 88.6*H, POC HCO3 (Misc Panel) 31.5H, POC Total CO2 (Misc Panel) 34.0H 01/01/21 15:19: Immature Granulocyte % (Auto) 1.4, Neutrophils (%) (Auto) 96.3H, Lymphocytes (%) (Auto) 0.8L, Monocytes (%) (Auto) 1.3L, Eosinophils (%) (Auto) 0.1, Basophils (%) (Auto) 0.1, Neutrophils # (Auto) 13.1H, Lymphocytes # (Auto) 0.1L, Monocytes # (Auto) 0.2, Eosinophils # (Auto) 0.0, Basophils # (Auto) 0.0, Nucleated Red Blood Cells % (auto) 0.3H, Anion Gap 4L, Glomerular Filtration Rate 57.3, Lactic Acid Level 2.9*H, Calcium Level 7.1L, Total Bilirubin 0.7, Direct Bilirubin 0.4H, Aspartate Amino Transf (AST/SGOT) 37, Alanine Aminotransferase (ALT/SGPT) 32, Alkaline Phosphatase 129H, Total Creatine Kinase 25L, Creatine Kinase MB < 1.0, Creatine Kinase MB Relative Index 4.00, Troponin I < 0.02, UX-Rdk-Z-Type Natriuretic Peptide 6502H, Total Protein 6.0L, Albumin 2.2L, Albumin/Globulin Ratio 0.6, Thyroid Stimulating Hormone (TSH) 4.090H, Thyroxine (T4) 7.2, Digoxin Level 1.2 01/01/21 15:57: POC Troponin I (Misc) 0.02 01/01/21 16:11: POC pH (Misc Panel) 7.290L, POC Base Excess (Misc Panel) 5.0H, POC Saturated Percent O2 (Misc) 99H, POC pO2 (Misc Panel) 149.0H, POC pCO2 (Misc Panel) 66.8*H, POC HCO3 (Misc Panel) 32.1H, POC Total CO2 (Misc Panel) 34.0H 01/01/21 16:20: Coronavirus (COVID-19)(PCR) NEGATIVE, Influenza Type A (RT-PCR) NEGATIVE, Influenza Type B (RT-PCR) NEGATIVE, Respiratory Syncytial Virus (PCR) NEGATIVE 01/01/21 18:57: Blood Gas Bicarbonate Standard 25.2, Arterial Blood pH 7.341L, Arterial Blood Partial Pressure CO2 51.2H, Arterial Blood Partial Pressure O2 169.6H, Arterial Blood Total CO2 28.6, Arterial Blood HCO3 27.1H, Arterial Blood Base Excess 0.7, Arterial Blood Oxygen Saturation 99.2H 01/01/21 19:52: Lactic Acid Followup at 4 Hours 2.4*H 01/02/21 02:09: Lactic Acid Level 2.5*H, Procalcitonin 10.73 01/02/21 02:10: Methicillin-Resist S.aureus DNA PCR NOT DETECTED 01/02/21 04:55: Immature Granulocyte % (Auto) 2.4, Neutrophils (%) (Auto) 94.7H, Lymphocytes (%) (Auto) 1.5L, Monocytes (%) (Auto) 1.3L, Eosinophils (%) (Auto) 0.0, Basophils (%) (Auto) 0.1, Neutrophils # (Auto) 9.6H, Lymphocytes # (Auto) 0.2L, Monocytes # (Auto) 0.1, Eosinophils # (Auto) 0.0, Basophils # (Auto) 0.0, Nucleated Red Blood Cells % (auto) 0.0, Anion Gap 7L, Glomerular Filtration Rate 47.8, Calcium Level 7.2L 01/02/21 09:37: Blood Gas Bicarbonate Standard 26.1, Venous Blood pH 7.293L, Venous Blood Partial Pressure CO2 62.6H, Venous Blood Partial Pressure O2 46.6, Venous Blood Total Carbon Dioxide 31.6H, Venous Blood HCO3 29.6H, Venous Blood Oxygen Saturation 78.2, Venous Blood Base Excess 2.1H, Lactic Acid Followup at 4 Hours 2.4*H CBC/BMP Laboratory Tests 01/01/21 15:19 01/02/21 04:55 Microbiology Microbiology 01/01/21 Blood Culture, Received Pending 01/01/21 Blood Culture, Received Pending Ekaterina Tanner MD Jan 02, 2021 11:52
[2021-01-02] MEDS ORDERED: LORazepam 2 MG/ML VIAL IV STA (16:29)
[2021-01-02] MEDS ORDERED: LORazepam 1 MG TAB PO PRN (19:05)
[2021-01-02] MEDS ORDERED: ONDANSETRON 4 MG ORAL DISINTEGRATING TAB PO PRN (19:05)
[2021-01-02] MEDS ORDERED: MORPHINE 10MG/0.5ML ORAL CONCENTRATE SOLUTION U/D SL PRN (19:05)
[2021-01-02] MEDS ORDERED: HYOSCYAMINE SULFATE 0.125 MG SUBL TABLET PO PRN (19:05)
[2021-01-02] MEDS ORDERED: RIVAROXABAN 20 MG TAB (XARELTO) PO SCH (21:00)
[2021-01-03] MEDS: IPRATROPIUM 0.5MG/ALBUTEROL 2.5MG INH SOL UD 3ML (DUONEB) NEB SCH
[2021-01-03] MEDS: PIPERACILLIN/TAZOBACTAM SOD 3.375 GM in D5W MINI-BAG PLUS 50 ML IV SCH ×2
[2021-01-03] MEDS ORDERED: FUROSEMIDE 40MG/4ML VIAL (J1940) IV SCH (09:00)
--- NOTE | 2021-01-03 14:18 | DS.PDOC ---
Discharge Summary General Date of Admission Jan 01, 2021 at 17:28 Date of Discharge 01/03/2021 Discharge Summary PROCEDURES PERFORMED DURING STAY: [None]. DISCHARGE DIAGNOSES: Right lower lobe pneumonia Acute respiratory failure with hypercarbia and hypoxia Acute metabolic encephalopathy from severe hypercarbia Diastolic CHF exacerbation MAGGIE Bilateral pleural effusions with right loculated malignant effusion A. 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 HOSPITAL COURSE: 75-year-old male with stage IV adenocarcinoma of the lung with bilateral pleural effusions, diastolic CHF, COPD has been having increasing shortness of breath for the past 2 days. has been trying to convince him to come to emergency room and ultimately he agreed to come today. Went to pull out the car and came back to get him, found him unresponsive with labored breathing. He was unresponsive with EMS also. EMS placed him on CPAP and brought him to the emergency room. On presentation to the ED he was found to have an ABG which showed a pH of 7.15, PCO2 of 88, PO2 of 78. He was started on BiPAP. Chest x-ray showed bilateral pleural effusions and features of CHF. He was given 60 mg of IV Lasix. Repeat ABG after 1 hour showed improvement with pH of 7.29, PCO2 of 66, PO2 of 149. Patient still remains lethargic however arousable to pain. No history could be obtained from him. All history is from ED provider, chart review and from at bedside. Patient's last chemo was on 12/28/2020. states usually after chemo patient feels fatigued with malaise for about 2 days and then gets better. But this week he did not improve in fact he started having breathing difficulty and became worse. Patient is on palliative chemotherapy third line gemcitabine chemotherapy as well as denosumab from 10/04/2020. Procalcitonin came back very high. CXR was poor film and could not rule out infiltrates. Patient was admitted for acute respiratory failure with hypoxia and hypercarbia, acute metabolic encephalopathy, CHF exacerbation with bilateral pleural effusion and right sided pneumonia. Patient initially responded to BiPAP therapy, antibiotics and Lasix however after the patient became awake and alert he was unable to keep the BiPAP on. He again started deteriorating with increasing respiratory rate and increasing tachycardia. He could in the BiPAP on only for 10 to 15 minutes at a time and then started refusing to use it. We again discussed goals of care and advanced directives. Patient then indicated that he wanted to be DNR and DNI and to be kept comfortable. Patient was transitioned to [facility]. Patient on 01/03/2021 at 12:40 AM. DISPOSITION: 20 . TIME SPENT ON DISCHARGE: 31 minutes. Vital Signs/I&Os Vital Signs Date Time Temp Pulse Resp B/P (MAP) Pulse Ox O2 Delivery O2 Flow Rate FiO2 01/03/21 00:17 15.0 90 01/03/21 00:00 98.0 133 30 81 High Flow Cannula 01/02/21 20:00 113/72 (86) I&O- Last 24 Hours up to 6 AM 01/03/21 05:59 Intake Total 645 ml Output Total 780 ml Balance -135 ml Microbiology Microbiology 01/01/21 Blood Culture - Preliminary, Resulted No growth after 24 hours . All specim... 01/01/21 Blood Culture - Preliminary, Resulted No growth after 24 hours . All specim... Discharge Medications Scheduled Allopurinol (Allopurinol) 100 Mg Tablet, 200 MG PO DAILY, (Reported) Bifidobacterium Infantis (Align) 4 Mg Cap, 4 MG PO DAILY, (Reported) Bisoprolol Fumarate (Bisoprolol Fumarate) 5 Mg Tablet, 5 MG PO QPM, (Reported) Bisoprolol Fumarate (Bisoprolol Fumarate) 10 Mg Tablet, 10 MG PO DAILY, (Reported) Colchicine (Colchicine) 0.6 Mg Tablet, 0.6 MG PO DAILY, (Reported) Digoxin (Digoxin) 125 Mcg Tablet, 125 MCG PO DAILY, (Reported) Docusate Sodium (Stool Softener) 100 Mg Capsule, 200 MG PO DAILY, (Reported) Fluticasone/Umeclidin/Vilanter (Trelegy Ellipta 100-62.5-25) 1 Each Blst.w.dev, 1 PUFF INH DAILY, (Reported) Multivitamins (Thera M Plus Tablet) 1 Tab Tab, 1 TAB PO DAILY, (Reported) Rivaroxaban (Xarelto) 20 Mg Tab, 20 MG PO QHS, (Reported) Spironolactone (Spironolactone) 25 Mg Tablet, 12.5 MG PO DAILY, (Reported) Torsemide (Torsemide) 20 Mg Tablet, 40 MG PO BID, (Reported) 2ND @ 1700 Scheduled PRN Albuterol Sulf (Albuterol Sulfate) 2.5 Mg/3 Ml Vial.neb, 2.5 MG INH Q6H PRN for SOB/WHEEZING, (Reported) Codeine Phosphate/Guaifenesin (Guaifen-Codeine 100-10 mg/5 ml) 5 Ml Liquid, 5-10 ML PO Q4HP PRN for cough and congestion Zolpidem Tartrate (Ambien) 5 Mg Tablet, 1 TAB PO QHSP PRN for sleep Allergies Coded Allergies: No Known Allergies (Unverified , 04/23/18) Ekaterina Tanner MD Jan 03, 2021 14:18
== END 2021-01-03 00:40 | disposition expired | DRG 291 ==
LOC: M ED 14:56 → EDBD 14:56 → M ED INP 17:28 → ENRESERV 17:53 → M ICU 18:39
PROVIDERS: ADMIT Internal Medicine Nephrology; ATTEND Internal Medicine Nephrology
DX: I11.0 Hypertensive heart disease with heart failure (principal); J96.01 Acute respiratory failure with hypoxia; J96.02 Acute respiratory failure with hypercapnia; J18.9 Pneumonia, unspecified organism; G93.41 Metabolic encephalopathy; J91.0 Malignant pleural effusion; C34.01 Malignant neoplasm of right main bronchus; C79.51 Secondary malignant neoplasm of bone; J44.0 Chronic obstructive pulmonary disease with (acute) lower respiratory infection; E87.2 Acidosis; I48.92 Unspecified atrial flutter; I50.33 Acute on chronic diastolic (congestive) heart failure; Z51.5 Encounter for palliative care; Z66 Do not resuscitate; I48.91 Unspecified atrial fibrillation; I27.20 Pulmonary hypertension, unspecified; M10.9 Gout, unspecified; Z87.891 Personal history of nicotine dependence; Z96.643 Presence of artificial hip joint, bilateral; Z96.652 Presence of left artificial knee joint; Z79.899 Other long term (current) drug therapy